=== PATIENT | female | born 1965 | race Caucasian/White ===

== ENCOUNTER → 2019-03-19 00:01 | Outpatient (RCR) | payer MEDICARE, SELFPAY | LOC: WOUND 02-19 08:16 | PROVIDERS: Family Provider Internal Medicine; Visit Provider Thoracic Surgery (Cardiothoracic Vascular Surgery) | DX: T81.30XA Disruption of wound, unspecified, initial encounter (principal); Y83.8 Other surgical procedures as the cause of abnormal reaction of the patient, or of later complication, without mention of misadventure at the time of the procedure; I96 Gangrene, not elsewhere classified | CPT/HCPCS: 11042 ×4 ==

== ENCOUNTER 2019-03-26 08:12 | Outpatient (RCR) | payer MEDICARE, OTHER, SELFPAY | END 2019-04-19 23:59 | disposition home or self-care (01) | LOC: WOUND 08:12 | PROVIDERS: Family Provider Internal Medicine; PCP Internal Medicine; Visit Provider Thoracic Surgery (Cardiothoracic Vascular Surgery) | DX: Z09 Encounter for follow-up examination after completed treatment for conditions other than malignant neoplasm (principal) | CPT/HCPCS: 99212 ==

== ENCOUNTER → 2019-05-01 09:45 | Outpatient (BNVA) | payer MEDICARE, OTHER, SELFPAY | PROVIDERS: Family Provider Internal Medicine; PCP Internal Medicine; Visit Provider Internal Medicine Rheumatology | DX: M32.9 Systemic lupus erythematosus, unspecified (principal); Z79.899 Other long term (current) drug therapy; G62.9 Polyneuropathy, unspecified; Z79.52 Long term (current) use of systemic steroids; E87.6 Hypokalemia | CPT/HCPCS: 36415; 99214 ==

== ENCOUNTER 2019-05-01 11:40 | Outpatient (CLI) | payer MEDICARE, OTHER, SELFPAY ==
[2019-05-01 12:39] LABS: Basophils # 0.1 10^3/uL (0.0-0.1); Basophils % 0.7 %; Eosinophils # 0.3 10^3/uL (0.0-0.8); Eosinophils % 3.1 %; Hematocrit 43.6 % (37.0-47.0); Lymphocytes # 2.3 10^3/uL (0.8-4.8); Lymphocytes % 27.8 %; Mean Corpuscular HGB Conc 29.8 g/dL (30.0-36.0); Mean Corpuscular Hemoglobin 25.9 pg (28.0-34.0); Mean Platelet Volume 10.6 fL (7.4-10.4); Monocytes # 0.8 10^3/uL (0.2-0.9); Monocytes % 10.1 %; Neutrophils # 4.8 10^3/uL (1.8-7.7); Neutrophils % 57.9 %; Nucleated Red Blood Cells % 0 %; Platelet Count 337 10^3/cmm (130-400); Red Blood Count 5.01 10^6/uL (4.1-5.3); Red Cell Distribution Width 16.9 % (12.1-15.1); White Blood Count 8.3 10^3/uL (4.0-10.0)
[2019-05-01 12:49] LABS: Complement C3 116 mg/dL (90-180)
[2019-05-01 12:58] LABS: Creatinine Urine, Random 19 mg/dL (28-217)
[2019-05-01 13:07] LABS: Alanine Aminotransferase 13 U/L (0-33); Albumin Level 3.7 g/dL (3.5-5.2); Alkaline Phosphatase 137 IU/L (35-105); Anion Gap 13.7 (5-19); Aspartate Amino Transferase 24 U/L (0-32); Blood Urea Nitrogen 5 mg/dL (6-20); Calcium 9.4 mg/dL (8.5-10.5); Carbon Dioxide 30 mmol/L (22-29); Chloride 99 mmol/L (98-107); Globulin 4.3 g/dL (1.3-4.6); Glomerular Filtration Rate 103.8 mL/min (90-130); Glucose 78 mg/dL (65-115); Sodium 140 mmol/L (136-145); Total Bilirubin 0.3 mg/dL (0.15-1.2)
[2019-05-01 13:45] LABS: Erythrocyte Sedimentation Rate 33 mm/hr (0-15)
[2019-05-01 13:58] LABS: Potassium 2.7 mmol/L (3.5-5.1)
== END 2019-05-01 11:41 | disposition home or self-care (01) ==
PROVIDERS: Family Provider Internal Medicine; PCP Internal Medicine; Visit Provider Internal Medicine Rheumatology
DX: M32.9 Systemic lupus erythematosus, unspecified (principal); Z51.81 Encounter for therapeutic drug level monitoring
CPT/HCPCS: 36415; 80053; 81001; 82575; 84156; 85025; 85651; 86140; 86160

== ENCOUNTER → 2019-05-06 11:25 | Outpatient (BNVA) | payer MEDICARE, OTHER, SELFPAY | PROVIDERS: Family Provider Internal Medicine; PCP Internal Medicine; Visit Provider Internal Medicine Rheumatology | DX: Z79.899 Other long term (current) drug therapy (principal); E87.6 Hypokalemia; M32.9 Systemic lupus erythematosus, unspecified | CPT/HCPCS: 36415; 84132 ==

== ENCOUNTER → 2019-07-31 12:57 | Outpatient (BNVA) | payer MEDICARE, OTHER, SELFPAY | PROVIDERS: Family Provider Internal Medicine; PCP Internal Medicine; Visit Provider Internal Medicine Rheumatology | DX: Z79.899 Other long term (current) drug therapy (principal); Z11.59 Encounter for screening for other viral diseases; Z11.1 Encounter for screening for respiratory tuberculosis; Z72.89 Other problems related to lifestyle | CPT/HCPCS: 36415; 80076; 82565; 85025; 85651; 86140; 86480; 86704; 86803; 87340 ==

== ENCOUNTER → 2019-08-06 14:13 | Outpatient (BNVA) | payer MEDICARE, OTHER, SELFPAY | PROVIDERS: Family Provider Internal Medicine; PCP Internal Medicine; Visit Provider Internal Medicine Rheumatology | DX: Z79.899 Other long term (current) drug therapy (principal); Z11.59 Encounter for screening for other viral diseases | CPT/HCPCS: 36415; 85025; 85651; 86803 ==

== ENCOUNTER → 2019-08-08 09:31 | Outpatient (BNVA) | payer MEDICARE, OTHER, SELFPAY | PROVIDERS: Family Provider Internal Medicine; PCP Internal Medicine; Visit Provider Internal Medicine Rheumatology | DX: M32.9 Systemic lupus erythematosus, unspecified (principal); Z79.899 Other long term (current) drug therapy; G62.9 Polyneuropathy, unspecified; M81.0 Age-related osteoporosis without current pathological fracture; M05.9 Rheumatoid arthritis with rheumatoid factor, unspecified; Z79.52 Long term (current) use of systemic steroids | CPT/HCPCS: 99214 ==

== ENCOUNTER 2019-10-29 14:55 | Outpatient (CLI) | payer MEDICARE, SELFPAY ==
--- NOTE | 2019-10-29 15:02 | MM_ITS ---
WS: [id number] BILATERAL DIGITAL SCREENING MAMMOGRAPHY WITH CAD CLINICAL INFORMATION: SCREENING HISTORY: Screening mammogram. No current complaints. COMPARISON: TECHNIQUE: Bilateral CC and MLO views. FINDINGS: Scattered fibroglandular densities bilaterally. No suspicious focal mass, asymmetry, calcifications, or architectural distortion. No evidence of malignancy. Vascular calcifications. Punctate calcificati ons. MM/[place] [id number] IMPRESSION: BI-RADS: 2-Benign FOLLOW UP: 1 Year Follow-up Recommend return to annual screening mammography.
== END 2019-10-29 14:56 | disposition home or self-care (01) ==
LOC: RADSHAW 15:01
PROVIDERS: Family Provider Internal Medicine; PCP Internal Medicine; Visit Provider Internal Medicine
DX: Z12.31 Encounter for screening mammogram for malignant neoplasm of breast (principal)
CPT/HCPCS: 77067

== ENCOUNTER → 2019-12-05 10:15 | Outpatient (BNVA) | payer MEDICARE, SELFPAY | PROVIDERS: Family Provider Internal Medicine; PCP Internal Medicine; Visit Provider Internal Medicine Rheumatology | DX: Z79.899 Other long term (current) drug therapy (principal); M32.9 Systemic lupus erythematosus, unspecified | CPT/HCPCS: 36415; 80076; 81001; 82565; 82570; 84156; 85025; 85651; 86140 ==

== ENCOUNTER → 2019-12-09 12:48 | Outpatient (BNVA) | payer MEDICARE, SELFPAY | PROVIDERS: Family Provider Internal Medicine; PCP Internal Medicine; Visit Provider Internal Medicine Rheumatology | DX: M32.9 Systemic lupus erythematosus, unspecified (principal); Z79.899 Other long term (current) drug therapy; R76.8 Other specified abnormal immunological findings in serum; G62.9 Polyneuropathy, unspecified; M81.0 Age-related osteoporosis without current pathological fracture; Z79.52 Long term (current) use of systemic steroids | CPT/HCPCS: 36415; 80076; 81001; 82306; 82565; 82570; 84156; 85025; 85651; 86140; 99214 ==

== ENCOUNTER → 2019-12-26 13:52 | Outpatient (BNVA) | payer MEDICARE, SELFPAY | PROVIDERS: PCP Internal Medicine; Visit Provider Surgery | DX: Z11.59 Encounter for screening for other viral diseases (principal) | CPT/HCPCS: 87635 ==

== ENCOUNTER 2019-12-30 06:40 | Day surgery (SDC) | payer MEDICARE, SELFPAY ==
[2019-12-20 14:23] VITALS: BMI 27.8
[2019-12-30 06:57] VITALS: BP 151/80; PULSE 73; RESP 20; TEMP 36.5; O2SAT 98
--- NOTE | 2019-12-30 07:02 | W.PM.OPSFHP ---
Same Day Surgery H&P Indication for Procedure/HPI DATE OF PROCEDURE: December 30, 2019 CHIEF COMPLAINT/INDICATIONFOR SURGICAL PROCEDURE: Dysphagia PREOP DIAGNOSIS: dysphagia PLANNED PROCEDRUE: Operation Date: 12/24/19 10:00 Proposed Procedures p EGD 01804 R13.10(Not Applicable) - Richard Tejada MD Operation Date: 12/30/19 07:45 Proposed Procedures p EGD Dilation W/ Possible Balloon 68610 R13.10(Not Applicable) - Richard Tejada MD Medications/Allergies* Home Medications Medication Instructions Recorded Confirmed Type citalopram 40 mg tablet 40 mg PO DAILY 04/30/19 12/27/19 History levothyroxine 125 mcg capsule 125 mcg PO DAILY 04/30/19 12/27/19 History multivitamin 1 tab PO DAILY 04/30/19 12/27/19 History potassium chloride 20 mEq 60 meq PO DAILY tab 04/30/19 12/27/19 History tablet,extended release vit with calcium-iron 1 tab PO DAILY tab 04/30/19 12/27/19 History fum-folic acid 27 mg-1 mg tablet Allergies/Adverse Reactions Allergy/AdvReac Type Severity Reaction Status Date / Time cephalexin Allergy Intermediate ITCHING,HEA Verified 12/20/19 14:22 DACHE codeine Allergy Intermediate ITCHING Verified 12/20/19 14:22 aspirin Allergy Unknown Unknown Verified 12/20/19 14:22 Pertinent History/Comorbid Conditions* Medical History (Updated 12/05/19 @ 17:13 by Richard Tejada MD) Cataract Osteoporosis Peripheral neuropathy Raynaud's syndrome without gangrene Systemic lupus erythematosus (SLE) in adult Vitamin D deficiency, unspecified Surgical History (Updated 11/29/19 @ 10:35 by Richard Tejada MD) Amputation of toe H/O colonoscopy 2016 H/O esophagogastroduodenoscopy 2014 H/O thyroidectomy History of cholecystectomy S/P AVR (aortic valve replacement) Family History (Updated 08/08/19 @ 09:56 by Pascale Chavarria LPN) Diabetes CAD (coronary artery disease) Hypertension Stroke Denies family history of Rheumatoid arthritis Chronic kidney disease (CKD) Systemic lupus erythematosus (SLE) in adult Cancer Social History Smoking and tobacco status: never smoked Alcohol intake: current Alcohol intake frequency: holidays/special occasions only Lives independently: No Household members: spouse Marital status: Current occupational status: disabled History of recent travel: No Pertinent Exam Findings alert, oriented x 3 and regular rate & rhythm Recommendations Surgery/Procedure today Coding Level of Care Code Acute 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
--- NOTE | 2019-12-30 07:17 | ANES.PREANE2 ---
Pre-Anesthetic Assessment Pre-Anesthetic Assessment: Height/Weight: Height 1.5 m Weight 62.596 kg Temp Pulse Resp BP Pulse Ox 97.7 F 73 20 H 151/80 98 12/30/19 06:57 12/30/19 06:57 12/30/19 06:57 12/30/19 06:57 12/30/19 06:57 Preop Diagnosis: dysphagia Proposed Procedure: Operation Date: 12/24/19 10:00 Proposed Procedures p EGD 91047 R13.10(Not Applicable) - Richard Tejada MD Operation Date: 12/30/19 07:45 Proposed Procedures p EGD Dilation W/ Possible Balloon 54139 R13.10(Not Applicable) - Richard Tejada MD Was Beta Jess taken within 24 hours: N/A Last intake: Intake Last Liquid Date 12/29/19 Last Liquid Time 22:00 Last Solid Date 12/29/19 Last Solid Time 18:00 Social: Social History: Alcohol and No tobacco Packs per day: holidays Exam: Pre-Anes Outpt Exam: alert, oriented x 3, clear to auscultation bilaterally and regular rate & rhythm Airway: Submandibular: WNL Cervical ROM: WNL MP: 2 Dentition: False History/ROS: No significant history except as noted and No significant complaints Pulmonary: Pulmonary: None reported CV/HEM: CV/HEM: Afib : : None reported Hepatic: Hepatic: None reported GI: GI: GERD Comments: controlled Metabolic: Metabolic: Thyroid Musc/skel: Musc/skel: OA/DJD Neuropsych: Neuropsych: None reported Anesthetic Plan: ASA status: 3 Anesthesia: MAC Risk of > 500 ml blood loss (7ml/kg in children): No PFSH Anesthesia PFSH: Medical History Cataract Osteoporosis Peripheral neuropathy Raynaud's syndrome without gangrene Systemic lupus erythematosus (SLE) in adult Vitamin D deficiency, unspecified Surgical History Amputation of toe H/O colonoscopy 2016 H/O esophagogastroduodenoscopy 2013 H/O thyroidectomy History of cholecystectomy S/P AVR (aortic valve replacement) Family History Other CAD (coronary artery disease) Diabetes Hypertension Stroke Denies family history of Rheumatoid arthritis Chronic kidney disease (CKD) Systemic lupus erythematosus (SLE) in adult Cancer Social History Smoking and tobacco status: never smoked Alcohol intake: current Alcohol intake frequency: holidays/special occasions only Lives independently: No Household members: spouse Marital status: Current occupational status: disabled History of recent travel: No Data Anesthesia Cardiac Studies: No Data to Display
[2019-12-30] MEDS: sodium chloride 0.9% 1,000 ML 30 ML IV (07:19)
[2019-12-30 08:28] VITALS: BP 130/69; PULSE 73; RESP 16; TEMP 36.1; O2SAT 99
[2019-12-30 08:48] VITALS: BP 130/69; PULSE 72; RESP 18; O2SAT 96
--- NOTE | 2019-12-30 09:05 | ANE.PACU2 ---
Inpatient post-anesthesia follow up: Airway intact: Yes Vital signs: Temperature 97 F Pulse Rate 72 Respiratory Rate 18 Blood Pressure 130/69 Pulse Oximetry 96 Oxygen Delivery Me thod Room Air Oxygen Flow Rate 1 Fraction of Inspir ed Oxygen Hydration adequate: Yes Nausea and vomiting: No Pain level: 1 Mental status: Baseline
== END 2019-12-30 09:05 | disposition home or self-care (01) ==
PROVIDERS: PCP Internal Medicine; Visit Provider Surgery
DX: R13.10 Dysphagia, unspecified (principal); K44.9 Diaphragmatic hernia without obstruction or gangrene; K22.2 Esophageal obstruction; M19.90 Unspecified osteoarthritis, unspecified site; E55.9 Vitamin D deficiency, unspecified; M32.9 Systemic lupus erythematosus, unspecified; Z82.49 Family history of ischemic heart disease and other diseases of the circulatory system; Z83.3 Family history of diabetes mellitus; I48.91 Unspecified atrial fibrillation
CPT/HCPCS: 12345; 43239; 43249; 88305; J2704; J7030

== ENCOUNTER 2020-01-23 13:50 | Outpatient (CLI) | payer MEDICARE, SELFPAY ==
--- NOTE | 2020-01-23 14:07 | XR_ITS ---
WS: [id number] XR foot RT min 3V* [id number] REASON FOR EXAM: TOE ULCER/EVAL FOR OSTEO FINDINGS: There are mild changes of osteoarthropathy in the DIP and MIP joints of the toes. This manifested by mild narrowing of the joint space with subchondral sclerosis. Joints of the midfoot and hindfoot are unremarkable. No bony destruction, erosion, or periosteal reaction noted. Extensive calcification of the anterior tibial artery XR/XR foot RT min 3V* [id number] IMPRESSION: Mild findings of osteoarthropathy. No findings of osteomyelitis.
== END 2020-01-23 13:51 | disposition home or self-care (01) ==
PROVIDERS: PCP Internal Medicine; Visit Provider Internal Medicine
DX: L97.519 Non-pressure chronic ulcer of other part of right foot with unspecified severity (principal)
CPT/HCPCS: 73630

== ENCOUNTER 2020-02-05 13:54 | Outpatient (CLI) | payer MEDICARE, SELFPAY | END 2020-02-05 13:55 | disposition home or self-care (01) | LOC: WOUND 13:55 | PROVIDERS: PCP Internal Medicine; Visit Provider Nurse Practitioner Family | DX: L97.512 Non-pressure chronic ulcer of other part of right foot with fat layer exposed (principal) | CPT/HCPCS: 11042; 87070; 87077; 87176; 87186; 87205; L3260 ==

== ENCOUNTER 2020-02-12 08:39 | Outpatient (CLI) | payer MEDICARE, SELFPAY | END 2020-02-12 08:40 | disposition home or self-care (01) | LOC: WOUND 08:40 | PROVIDERS: PCP Internal Medicine; Visit Provider Nurse Practitioner Family | DX: L97.512 Non-pressure chronic ulcer of other part of right foot with fat layer exposed (principal) | CPT/HCPCS: 11042 ==

== ENCOUNTER 2020-02-19 08:27 | Outpatient (CLI) | payer MEDICARE, SELFPAY | END 2020-02-19 08:28 | disposition home or self-care (01) | PROVIDERS: PCP Internal Medicine; Visit Provider Thoracic Surgery (Cardiothoracic Vascular Surgery) | DX: L97.512 Non-pressure chronic ulcer of other part of right foot with fat layer exposed (principal); I96 Gangrene, not elsewhere classified; Z79.899 Other long term (current) drug therapy; M32.9 Systemic lupus erythematosus, unspecified; R76.8 Other specified abnormal immunological findings in serum | CPT/HCPCS: 11043; 80053; 81001; 82248; 82570; 83036; 84156; 85025; 85651; 86140; 86160 ==

== ENCOUNTER 2020-02-19 09:57 | Outpatient (CLI) | payer MEDICARE, SELFPAY ==
[2020-02-19 11:05] LABS: Basophils # 0.1 10^3/uL (0.0-0.1); Basophils % 0.8 %; Eosinophils # 0.4 10^3/uL (0.0-0.8); Eosinophils % 2.7 %; Hematocrit 43.4 % (37.0-47.0); Hemoglobin 13.3 g/dL (11.5-15.3); Lymphocytes # 2.9 10^3/uL (0.8-4.8); Lymphocytes % 21.9 %; Mean Corpuscular HGB Conc 30.6 g/dL (30.0-36.0); Mean Corpuscular Hemoglobin 28.6 pg (28.0-34.0); Mean Corpuscular Volume 93.3 fL (81-99); Mean Platelet Volume 10.7 fL (7.4-10.4); Monocytes % 7.1 %; Neutrophils # 8.93 10^3/uL (1.8-7.7); Neutrophils % 67.2 %; Nucleated Red Blood Cells % 0 %; Platelet Count 326 10^3/cmm (130-400); Red Blood Count 4.65 10^6/uL (4.1-5.3); Red Cell Distribution Width 13.8 % (12.1-15.1); White Blood Count 13.3 10^3/uL (4.0-10.0)
[2020-02-19 11:16] LABS: Bilirubin Urine Neg (Negative); Blood Urine Neg (Negative); Glucose Urine UA Norm (Normal); Ketones Urine Negative (Negative); Leukocyte Esterase Urine Negative (Negative); Nitrate Urine Negative (Negative); Protein Urine Neg (Negative); Specific Gravity, Urine 1.005 (1.005-1.030); Urine Appearance Clear (CLEAR); Urine Color Yellow (Yellow); Urobilinogen Urine Norm (Negative); pH Urine 5 (5-7)
[2020-02-19 11:21] LABS: Add Urine Culture? No
[2020-02-19 11:32] LABS: Urine Creatinine 45 mg/dL (28-217); Urine Protein Random 4 mg/dL
[2020-02-19 11:47] LABS: Alanine Aminotransferase 21 U/L (0-33); Albumin Level 3.4 g/dL (3.5-5.2); Alkaline Phosphatase 108 IU/L (35-105); Anion Gap 13.6 (5-19); Aspartate Amino Transferase 24 U/L (0-32); Blood Urea Nitrogen 7 mg/dL (6-20); C Reactive Protein 13.1 mg/L (0.0-4.9); Calcium 8.7 mg/dL (8.5-10.5); Carbon Dioxide 28 mmol/L (22-29); Chloride 102 mmol/L (98-107); Globulin 3.8 g/dL (1.3-4.6); Glomerular Filtration Rate 86.6 mL/min (90-130); Glucose 76 mg/dL (65-115); Osmolality Calculated 287 mOsm/kg (285-295); Potassium 3.6 mmol/L (3.5-5.1); Sodium 140 mmol/L (136-145); Total Bilirubin 0.4 mg/dL (0.15-1.2); Total Protein 7.2 g/dL (6.6-8.7)
[2020-02-19 12:11] LABS: Complement C3 109 mg/dL (90-180)
[2020-02-19 12:59] LABS: Erythrocyte Sedimentation Rate 33 mm/hr (0-15)
[2020-02-19 14:44] LABS: Estmated Average Glucose 105; Hemoglobin A1C 5.3 % (4.0-6.0)
== END 2020-02-19 09:58 | disposition home or self-care (01) ==
LOC: LAB 10:05
PROVIDERS: Internal Medicine Rheumatology; PCP Internal Medicine; Visit Provider Thoracic Surgery (Cardiothoracic Vascular Surgery)
DX: Z79.899 Other long term (current) drug therapy (principal); M32.9 Systemic lupus erythematosus, unspecified; R76.8 Other specified abnormal immunological findings in serum
CPT/HCPCS: 80053; 81001; 82248; 82570; 83036; 84156; 85025; 85651; 86140; 86160

== ENCOUNTER 2020-02-26 08:06 | Outpatient (CLI) | payer MEDICARE, SELFPAY | END 2020-02-26 08:07 | disposition home or self-care (01) | LOC: WOUND 08:11 | PROVIDERS: PCP Internal Medicine; Visit Provider Nurse Practitioner Family | DX: L97.512 Non-pressure chronic ulcer of other part of right foot with fat layer exposed (principal) | CPT/HCPCS: 11042 ==

== ENCOUNTER 2020-02-28 13:52 | Outpatient (CLI) | payer MEDICARE, SELFPAY ==
--- NOTE | 2020-02-28 14:03 | CT_ITS ---
WS: [id number] CTA ABDOMINAL AORTA WITH RUNOFF TECHNIQUE: Contrast enhanced CTA of the abdominal aorta with bilateral lower extremity runoff. Multip lanar reformatted images were obtained. MIP reformats were also reviewed. CLINICAL INFORMATION: PERIPHERAL VASCULAR DISEASE WITH ISCHEMIC ULCERATION RT FOOT COMPARISON: None. DLP: 1192.[address] scans at [facility] use at least one of these dose optimization techniques: automat ed exposure control; mA and/or kV adjustment per patient size (includes targeted exams where dose is matched to clinical indication); or iterative reconstruction. FINDINGS: Normal caliber abdominal aorta. Normal celiac and SMA. Proximal renal arteries are patent. Normal caliber abdominal aorta. No abdominal aortic aneurysm. Lung bases are well aerated. Noncalcified nodule right lower lobe at the diaphragm measuring 7 mm. Th is appears stable since 2018. Diffuse fatty infiltration of the liver. Small esophageal hiatal hernia. Postoperative changes at the GE junction. Adrenal glands are normal. Normal renal parenchymal enhancement. No hydronephrosis. Pro minent lymph node in the upper abdomen unchanged since 2018 measuring 9 mm. Prominent lymph nodes in the sam hepatis also unchanged. No free fluid in the pelvis. Lumbar scoliosis. Small chronic appearing compression fractures in the l umbar spine at L1, L3, and L4. Anterior wedging at T11 vertebral plana. Grade 2 anterolisthesis L5 on S1 with chronic spondylolysis. Chronic appearing right greater than left healing/healed sacral insuf ficiency fractures. RIGHT: Right common iliac artery is patent. Right common femoral and deep femoral arteries are patent . Superficial femoral artery is patent to the adductor hiatus. Peripheral calcification throughout th e superficial femoral artery without flow-limiting stenosis. Popliteal artery is patent to the trifur cation. Densely calcified intermittent segmental three-vessel runoff to the ankle. Tiny posterior tib ial and peroneal arteries. Heavily calcified anterior tibial artery. LEFT: Left common iliac artery is patent. Left external iliac and common femoral arteries are patent. Densely calcified superficial femoral artery which remains patent without flow-limiting stenosis. [place] perficial femoral artery is patent to the adductor hiatus. Popliteal artery is patent. Densely calcif ied three-vessel runoff to the ankle with segmental stenosis. This is similar in appearance to the [facility] lower extremity. CT/CT angio abd aorta runof [id number] IMPRESSION: 1. Normal caliber abdominal aorta with mild calcification. No abdominal aortic aneurysm. 2. Celiac and SMA are patent. 3. RIGHT: Right common femoral and superficial femoral arteries are patent. De nse peripheral calcification superficial femoral artery without flow-limiting s tenosis. Popliteal artery is patent to the trifurcation. 4. LEFT: Left common femoral and superficial femoral arteries are patent. Dens gray peripheral calcification superficial femoral artery which remains patent. P opliteal artery is patent. 5. Mirror image densely calcified three-vessel segmental runoff to both ankles . Heavily calcified anterior tibial arteries bilaterally with tiny calcified pe roneal and posterior tibial arteries. 6. Additional nonvascular findings described above.
[2020-02-28] MEDS: iohexol 350 mg/mL 100 mL Btl IV (14:30)
== END 2020-02-28 13:53 | disposition home or self-care (01) ==
LOC: RADWPI 13:53
PROVIDERS: PCP Internal Medicine; Visit Provider Thoracic Surgery (Cardiothoracic Vascular Surgery)
DX: I73.9 Peripheral vascular disease, unspecified (principal); L97.519 Non-pressure chronic ulcer of other part of right foot with unspecified severity
CPT/HCPCS: 75635; Q9967

== ENCOUNTER → 2020-03-02 10:43 | Outpatient (BNVA) | payer MEDICARE, SELFPAY | PROVIDERS: PCP Internal Medicine; Visit Provider Internal Medicine Rheumatology | DX: M32.9 Systemic lupus erythematosus, unspecified (principal); R76.8 Other specified abnormal immunological findings in serum; Z79.899 Other long term (current) drug therapy; Z79.52 Long term (current) use of systemic steroids; G62.9 Polyneuropathy, unspecified; M81.0 Age-related osteoporosis without current pathological fracture; L97.519 Non-pressure chronic ulcer of other part of right foot with unspecified severity | CPT/HCPCS: 73630; 99214 ==

== ENCOUNTER 2020-03-02 11:35 | Outpatient (CLI) | payer MEDICARE, SELFPAY ==
--- NOTE | 2020-03-02 11:40 | XR_ITS ---
WS: [id number] Right foot, 3 views, 03/02/2020 Clinical Data: M32.9 - Systemic lupus erythematosus, unspecified Comparison: Right foot, 01/23/2020. Findings: No fractures or dislocations are seen. No bone destruction or erosion is noted. The minimal osteoarth ritic changes of the PIP and DIP joints of the right toes is seen.There is vascular calcification whi ch can be seen with diabetes. No evidence of osteomyelitis is noted. XR/XR foot RT min 3V* [id number] Impression: No change from previous right foot x-ray.
== END 2020-03-02 11:36 | disposition home or self-care (01) ==
LOC: RADWPI 11:38
PROVIDERS: PCP Internal Medicine; Visit Provider Internal Medicine Rheumatology
DX: M32.9 Systemic lupus erythematosus, unspecified (principal)
CPT/HCPCS: 73630

== ENCOUNTER 2020-03-04 08:21 | Outpatient (CLI) | payer MEDICARE, SELFPAY | END 2020-03-04 08:22 | disposition home or self-care (01) | LOC: WOUND 08:22 | PROVIDERS: PCP Internal Medicine; Visit Provider Thoracic Surgery (Cardiothoracic Vascular Surgery) | DX: I73.9 Peripheral vascular disease, unspecified (principal); L97.519 Non-pressure chronic ulcer of other part of right foot with unspecified severity | CPT/HCPCS: 11044; 87070; 87077; 87176; 87186; 87205 ==

== ENCOUNTER 2020-03-11 08:11 | Outpatient (CLI) | payer MEDICARE, SELFPAY | END 2020-03-11 08:12 | disposition home or self-care (01) | LOC: WOUND 08:12 | PROVIDERS: PCP Internal Medicine; Visit Provider Nurse Practitioner Family | DX: M32.9 Systemic lupus erythematosus, unspecified (principal); L97.512 Non-pressure chronic ulcer of other part of right foot with fat layer exposed | CPT/HCPCS: 11044 ==

== ENCOUNTER 2020-03-18 08:09 | Outpatient (CLI) | payer MEDICARE, SELFPAY | END 2020-03-18 08:10 | disposition home or self-care (01) | LOC: WOUND 08:10 | PROVIDERS: PCP Internal Medicine; Visit Provider Nurse Practitioner Family | DX: L97.512 Non-pressure chronic ulcer of other part of right foot with fat layer exposed (principal) | CPT/HCPCS: 11042 ==

== ENCOUNTER 2020-03-25 08:13 | Outpatient (CLI) | payer MEDICARE, SELFPAY | END 2020-03-25 08:14 | disposition home or self-care (01) | LOC: WOUND 08:14 | PROVIDERS: PCP Internal Medicine; Visit Provider Thoracic Surgery (Cardiothoracic Vascular Surgery) | DX: L97.512 Non-pressure chronic ulcer of other part of right foot with fat layer exposed (principal) | CPT/HCPCS: 11044 ==

== ENCOUNTER 2020-03-30 13:55 | Outpatient (CLI) | payer MEDICARE, SELFPAY ==
[2020-03-30 14:27] LABS: Basophils # 0.1 10^3/uL (0.0-0.1); Basophils % 0.6 %; Eosinophils # 0.1 10^3/uL (0.0-0.8); Eosinophils % 1.8 %; Hemoglobin 13.8 g/dL (11.5-15.3); Lymphocytes # 2.2 10^3/uL (0.8-4.8); Lymphocytes % 28.8 %; Mean Corpuscular HGB Conc 30.7 g/dL (30.0-36.0); Mean Corpuscular Hemoglobin 29.4 pg (28.0-34.0); Mean Corpuscular Volume 95.9 fL (81-99); Mean Platelet Volume 10.3 fL (7.4-10.4); Monocytes % 12.7 %; Neutrophils # 4.34 10^3/uL (1.8-7.7); Neutrophils % 55.8 %; Nucleated Red Blood Cells % 0 %; Platelet Count 241 10^3/cmm (130-400); Red Blood Count 4.69 10^6/uL (4.1-5.3); Red Cell Distribution Width 16.1 % (12.1-15.1); White Blood Count 7.8 10^3/uL (4.0-10.0)
[2020-03-30 15:22] LABS: Albumin Level 3.2 g/dL (3.5-5.2); Alkaline Phosphatase 71 IU/L (35-105); Blood Urea Nitrogen 6 mg/dL (6-20); Calcium 8.8 mg/dL (8.5-10.5); Carbon Dioxide 22 mmol/L (22-29); Chloride 103 mmol/L (98-107); Glomerular Filtration Rate 86.6 mL/min (90-130); Glucose 82 mg/dL (65-115); Osmolality Calculated 283 mOsm/kg (285-295); Sodium 138 mmol/L (136-145); Total Bilirubin 0.5 mg/dL (0.15-1.2); Total Protein 7.2 g/dL (6.6-8.7)
[2020-03-30 15:27] LABS: Alanine Aminotransferase 15 U/L (0-33); Anion Gap 17.4 (5-19); Aspartate Amino Transferase 34 U/L (0-32); Potassium 4.4 mmol/L (3.5-5.1)
== END 2020-03-30 13:56 | disposition home or self-care (01) ==
PROVIDERS: PCP Internal Medicine; Visit Provider Nurse Practitioner Family
DX: M86.9 Osteomyelitis, unspecified (principal)
CPT/HCPCS: 36415; 80053; 85025

== ENCOUNTER 2020-04-01 08:23 | Outpatient (CLI) | payer MEDICARE, SELFPAY | END 2020-04-01 08:24 | disposition home or self-care (01) | LOC: WOUND 08:23 | PROVIDERS: PCP Internal Medicine; Visit Provider Thoracic Surgery (Cardiothoracic Vascular Surgery) | DX: L97.512 Non-pressure chronic ulcer of other part of right foot with fat layer exposed (principal) | CPT/HCPCS: 11044 ==

== ENCOUNTER 2020-04-06 14:38 | Outpatient (CLI) | payer MEDICARE, SELFPAY ==
[2020-04-06 15:28] LABS: Basophils % 0.4 %; Eosinophils # 0.2 10^3/uL (0.0-0.8); Eosinophils % 2.6 %; Hematocrit 40.7 % (37.0-47.0); Hemoglobin 12.4 g/dL (11.5-15.3); Lymphocytes # 2.8 10^3/uL (0.8-4.8); Lymphocytes % 31.1 %; Mean Corpuscular HGB Conc 30.5 g/dL (30.0-36.0); Mean Corpuscular Hemoglobin 29.3 pg (28.0-34.0); Mean Corpuscular Volume 96.2 fL (81-99); Mean Platelet Volume 10.2 fL (7.4-10.4); Monocytes # 0.7 10^3/uL (0.2-0.9); Monocytes % 8.1 %; Neutrophils # 5.13 10^3/uL (1.8-7.7); Neutrophils % 57.6 %; Nucleated Red Blood Cells % 0 %; Platelet Count 222 10^3/cmm (130-400); Red Blood Count 4.23 10^6/uL (4.1-5.3); Red Cell Distribution Width 16.2 % (12.1-15.1); White Blood Count 8.9 10^3/uL (4.0-10.0)
[2020-04-06 15:57] LABS: Alanine Aminotransferase 13 U/L (0-33); Albumin Level 3.4 g/dL (3.5-5.2); Alkaline Phosphatase 65 IU/L (35-105); Anion Gap 11.7 (5-19); Aspartate Amino Transferase 18 U/L (0-32); Blood Urea Nitrogen 12 mg/dL (6-20); Calcium 8.9 mg/dL (8.5-10.5); Carbon Dioxide 29 mmol/L (22-29); Chloride 101 mmol/L (98-107); Globulin 3.5 g/dL (1.3-4.6); Glomerular Filtration Rate 64.8 mL/min (90-130); Glucose 85 mg/dL (65-115); Osmolality Calculated 285 mOsm/kg (285-295); Potassium 3.7 mmol/L (3.5-5.1); Sodium 138 mmol/L (136-145); Total Bilirubin 0.3 mg/dL (0.15-1.2); Total Protein 6.9 g/dL (6.6-8.7)
== END 2020-04-06 14:39 | disposition home or self-care (01) ==
PROVIDERS: PCP Internal Medicine; Visit Provider Nurse Practitioner Family
DX: M86.9 Osteomyelitis, unspecified (principal)
CPT/HCPCS: 36415; 80053; 85025

== ENCOUNTER 2020-04-08 08:08 | Outpatient (CLI) | payer MEDICARE, SELFPAY | END 2020-04-08 08:09 | disposition home or self-care (01) | LOC: WOUND 08:09 | PROVIDERS: PCP Internal Medicine; Visit Provider Thoracic Surgery (Cardiothoracic Vascular Surgery) | DX: L97.512 Non-pressure chronic ulcer of other part of right foot with fat layer exposed (principal) | CPT/HCPCS: 11043 ==

== ENCOUNTER 2020-04-15 08:17 | Outpatient (CLI) | payer MEDICARE, SELFPAY | END 2020-04-15 08:18 | disposition home or self-care (01) | LOC: WOUND 08:19 | PROVIDERS: PCP Internal Medicine; Visit Provider Thoracic Surgery (Cardiothoracic Vascular Surgery) | DX: I73.9 Peripheral vascular disease, unspecified (principal); L97.512 Non-pressure chronic ulcer of other part of right foot with fat layer exposed | CPT/HCPCS: 11042 ==

== ENCOUNTER 2020-04-22 08:11 | Outpatient (CLI) | payer MEDICARE, SELFPAY | END 2020-04-22 08:12 | disposition home or self-care (01) | LOC: WOUND 08:17 | PROVIDERS: PCP Internal Medicine; Visit Provider Thoracic Surgery (Cardiothoracic Vascular Surgery) | DX: L97.513 Non-pressure chronic ulcer of other part of right foot with necrosis of muscle (principal) | CPT/HCPCS: 11044 ==

== ENCOUNTER 2020-04-23 11:11 | Outpatient (CLI) | payer MEDICARE, SELFPAY ==
[2020-04-23 11:40] LABS: Basophils % 0.5 %; Eosinophils # 0.2 10^3/uL (0.0-0.8); Eosinophils % 1.9 %; Hemoglobin 11.1 g/dL (11.5-15.3); Lymphocytes # 2.6 10^3/uL (0.8-4.8); Lymphocytes % 30.6 %; Mean Corpuscular HGB Conc 30.8 g/dL (30.0-36.0); Mean Corpuscular Hemoglobin 29.6 pg (28.0-34.0); Mean Platelet Volume 10.2 fL (7.4-10.4); Monocytes # 0.9 10^3/uL (0.2-0.9); Monocytes % 10.9 %; Neutrophils % 55.9 %; Nucleated Red Blood Cells % 0 %; Platelet Count 282 10^3/cmm (130-400); Red Blood Count 3.75 10^6/uL (4.1-5.3); Red Cell Distribution Width 15.8 % (12.1-15.1); White Blood Count 8.4 10^3/uL (4.0-10.0)
[2020-04-23 12:08] LABS: Alanine Aminotransferase 23 U/L (0-33); Albumin Level 3.8 g/dL (3.5-5.2); Alkaline Phosphatase 76 IU/L (35-105); Aspartate Amino Transferase 28 U/L (0-32); Blood Urea Nitrogen 10 mg/dL (6-20); Calcium 8.8 mg/dL (8.5-10.5); Carbon Dioxide 26 mmol/L (22-29); Chloride 98 mmol/L (98-107); Globulin 3.5 g/dL (1.3-4.6); Glomerular Filtration Rate 74.2 mL/min (90-130); Glucose 81 mg/dL (65-115); Osmolality Calculated 278 mOsm/kg (285-295); Sodium 135 mmol/L (136-145); Total Bilirubin 0.5 mg/dL (0.15-1.2); Total Protein 7.3 g/dL (6.6-8.7)
== END 2020-04-23 11:12 | disposition home or self-care (01) ==
PROVIDERS: PCP Internal Medicine; Visit Provider Nurse Practitioner Family
DX: M32.9 Systemic lupus erythematosus, unspecified (principal); Z79.899 Other long term (current) drug therapy
CPT/HCPCS: 36415; 80053; 85025

== ENCOUNTER 2020-05-05 13:01 | Outpatient (CLI) | payer MEDICARE, SELFPAY | END 2020-05-05 13:02 | disposition home or self-care (01) | LOC: WOUND 13:03 | PROVIDERS: PCP Internal Medicine; Visit Provider Thoracic Surgery (Cardiothoracic Vascular Surgery) | DX: I96 Gangrene, not elsewhere classified (principal); L97.513 Non-pressure chronic ulcer of other part of right foot with necrosis of muscle | CPT/HCPCS: 11042 ==

== ENCOUNTER 2020-05-13 09:26 | Outpatient (CLI) | payer MEDICARE, SELFPAY | END 2020-05-13 09:27 | disposition home or self-care (01) | LOC: WOUND 09:37 | PROVIDERS: PCP Internal Medicine; Visit Provider Thoracic Surgery (Cardiothoracic Vascular Surgery) | DX: L97.513 Non-pressure chronic ulcer of other part of right foot with necrosis of muscle (principal) | CPT/HCPCS: 11042; 87070; 87176; 87205 ==

== ENCOUNTER 2020-05-20 09:40 | Outpatient (CLI) | payer MEDICARE, SELFPAY | END 2020-05-20 09:41 | disposition home or self-care (01) | LOC: WOUND 09:45 | PROVIDERS: PCP Internal Medicine; Visit Provider Thoracic Surgery (Cardiothoracic Vascular Surgery) | DX: L97.513 Non-pressure chronic ulcer of other part of right foot with necrosis of muscle (principal) | CPT/HCPCS: 11042 ==

== ENCOUNTER 2020-05-22 13:06 | Outpatient (CLI) | payer MEDICARE, SELFPAY | END 2020-05-22 13:07 | disposition home or self-care (01) | LOC: WOUND 13:07 | PROVIDERS: PCP Internal Medicine; Visit Provider Surgery | DX: L97.513 Non-pressure chronic ulcer of other part of right foot with necrosis of muscle (principal) | CPT/HCPCS: 11044 ==

== ENCOUNTER 2020-05-27 13:49 | Outpatient (CLI) | payer MEDICARE, SELFPAY | END 2020-05-27 13:50 | disposition home or self-care (01) | LOC: WOUND 13:55 | PROVIDERS: PCP Internal Medicine; Visit Provider Thoracic Surgery (Cardiothoracic Vascular Surgery) | DX: L97.512 Non-pressure chronic ulcer of other part of right foot with fat layer exposed (principal) | CPT/HCPCS: 11042 ==

== ENCOUNTER → 2020-05-28 13:46 | Outpatient (BNVA) | payer MEDICARE, SELFPAY | PROVIDERS: PCP Internal Medicine; Visit Provider Thoracic Surgery (Cardiothoracic Vascular Surgery) | DX: Z20.828 Contact with and (suspected) exposure to other viral communicable diseases (principal) | CPT/HCPCS: 87635 ==

== ENCOUNTER 2020-06-01 12:35 | Day surgery (SDC) | payer MEDICARE, SELFPAY ==
[2020-05-29 12:47] VITALS: BMI 25.4
[2020-06-01 13:17] VITALS: BP 139/103; PULSE 76; RESP 18; TEMP 36.8; O2SAT 99
--- NOTE | 2020-06-01 13:34 | ANES.PREANE2 ---
Pre-Anesthetic Assessment Pre-Anesthetic Assessment: Height/Weight: Height 1.47 m Weight 55.338 kg Temp Pulse Resp BP Pulse Ox 98.3 F 76 18 139/103 99 06/01/20 13:17 06/01/20 13:17 06/01/20 13:17 06/01/20 13:17 06/01/20 13:17 Preop Diagnosis: Right second toe amputation Proposed Procedure: Operation Date: 06/01/20 14:25 Proposed Procedures p Amputation Toe/s 2nd on right side(Right) - Rogelio Snyder MD Was Beta Jess taken within 24 hours: N/A Was Clonidine taken within 24 hours: N/A Last intake: Intake Last Liquid Date 05/31/20 Last Solid Date 05/31/20 Social: Social History: No alcohol and No tobacco Exam: Pre-Anes Outpt Exam: alert, oriented x 3, clear to auscultation bilaterally and regular rate & rhythm Airway: Submandibular: WNL Cervical ROM: WNL MP: 2 Dentition: False Pulmonary: Pulmonary: COPD CV/HEM: CV/HEM: CAD (CABG, AVR) and HTN GI: GI: GERD Metabolic: Metabolic: Thyroid Comments: Chronic steroids (Lupus) Anesthetic Plan: ASA status: 3 Anesthesia: MAC Risk of > 500 ml blood loss (7ml/kg in children): No PFSH Anesthesia PFSH: Medical History Cataract Osteoporosis Peripheral neuropathy Raynaud's syndrome without gangrene Right foot ulcer Systemic lupus erythematosus (SLE) in adult Vitamin D deficiency, unspecified Surgical History Amputation of toe H/O colonoscopy 2016 H/O esophagogastroduodenoscopy 2013 H/O esophagogastroduodenoscopy (12/30/19) with dilation H/O thyroidectomy History of cholecystectomy S/P AVR (aortic valve replacement) Family History Other CAD (coronary artery disease) Diabetes Hypertension Stroke Denies family history of Rheumatoid arthritis Chronic kidney disease (CKD) Systemic lupus erythematosus (SLE) in adult Cancer Social History Smoking and tobacco status: never smoked Alcohol intake: current Alcohol intake frequency: holidays/special occasions only Lives independently: No Household members: spouse Marital status: Current occupational status: disabled History of recent travel: No Data Anesthesia Cardiac Studies: No Data to Display
[2020-06-01 13:48] VITALS: BP 129/100; PULSE 81; RESP 12; TEMP 37.1; O2SAT 95
[2020-06-01 13:56] LABS: Basophils # 0.1 10^3/uL (0.0-0.1); Basophils % 0.6 %; Eosinophils # 0.2 10^3/uL (0.0-0.8); Hematocrit 42.2 % (37.0-47.0); Hemoglobin 13.1 g/dL (11.5-15.3); Lymphocytes # 2.9 10^3/uL (0.8-4.8); Lymphocytes % 25.5 %; Mean Corpuscular Hemoglobin 29.8 pg (28.0-34.0); Mean Corpuscular Volume 95.9 fL (81-99); Mean Platelet Volume 10.5 fL (7.4-10.4); Monocytes # 1.1 10^3/uL (0.2-0.9); Monocytes % 9.8 %; Neutrophils # 7.03 10^3/uL (1.8-7.7); Neutrophils % 61.8 %; Nucleated Red Blood Cells % 0 %; Platelet Count 335 10^3/cmm (130-400); Red Cell Distribution Width 15.1 % (12.1-15.1); White Blood Count 11.4 10^3/uL (4.0-10.0)
[2020-06-01] MEDS: vancomycin 1,000 MG in sodium chloride 0.9% 250 ML 250 MG IV (13:59)
[2020-06-01] MEDS: sodium chloride 0.9% 1,000 ML 30 ML IV (14:01)
[2020-06-01 14:18] LABS: Anion Gap 12.1 (5-19); Blood Urea Nitrogen 6 mg/dL (6-20); Calcium 8.5 mg/dL (8.5-10.5); Carbon Dioxide 31 mmol/L (22-29); Chloride 103 mmol/L (98-107); Glomerular Filtration Rate 86.6 mL/min (90-130); Glucose 71 mg/dL (65-115); Osmolality Calculated 290 mOsm/kg (285-295); Potassium 4.1 mmol/L (3.5-5.1); Sodium 142 mmol/L (136-145)
--- NOTE | 2020-06-01 14:35 | W.PM.OPSUD ---
Surgery/Procedure H&P Update DATE OF PROCEDURE: June 01, 2020 DATE H&P PERFORMED: 05/27/20 H&P UPDATE INFORMATION: I have reviewed H&P completed within last 30 days, I have examined patient prior to procedure and No changes to prior documentation PREOP DIAGNOSIS: Right second toe amputation PRIMARY INDICATION FOR PROCEDURE: Osteomyelitis right second toe interphalangeal joint with joint destruction PLANNED PROCEDURE: Operation Date: 06/01/20 14:25 Proposed Procedures p Amputation Toe/s 2nd on right side(Right) - Rogelio Snyder MD
[2020-06-01] MEDS: vancomycin 1,000 MG SDV 1000 MG IRRIGATION (15:11)
[2020-06-01] MEDS: neomycin-poly-bacitracin oint 28 gm 1 APPLIC TOPICAL (15:11)
--- NOTE | 2020-06-01 15:44 | P.OP_ITS ---
Operative Report Date of procedure: June 01, 2020 Pre-op Diagnosis: Osteomyelitis interphalangeal joint right second toe Post-op diagnosis: same Procedure Done: Right second toe amputation Specimens removed/disposition: Right second toe Anesthesia: MAC and Local Disposition: same day Brief History: Pleasant 54-year-old female with chronic wound of the right second toe involving the interphalangeal joint with bone destruction. Patient has lupus, osteoporosis, and peripheral neuropathy and her wound has failed to heal under wound care management. There is destruction of the proximal and distal phalanxes at the interphalangeal joint. After secondary review by my surgical colleague, Dr. Hayes, it is a consensus that toe would be best served with amputation due to concerns for subsequent progression or ascending cellulitis. This was carefully discussed with Ms. Bain. She concurred. Proper consents have been reviewed and signed. Procedure: Ms. Bain was taken racking machine operator room theater carefully position. She underwent IV conscious sedation anesthesia monitoring. Her entire right foot and lower leg was sterilely prepped and draped. A digital block was administered with 1% lidocaine with good effect. Circumferentially, the base of the right second toe, #15 scalpel utilized to incise the skin down through soft tissue attached tendon to the proximal phalanx. Dissection was then continued further proximally to the metatarsophalangeal joint where the right second toe was subsequently transected. The articular surface of the second metatarsal head was removed utilizing bone rongeur. No exposed tendons were placed on t raction and transected. Wound was irrigated with antibiotic solution. Cautery was utilized quite carefully no evidence for further bony destruction was identified or evidence for active infection elsewhere. Subsequently, the wound was reapproximated with interrupted buried 3-0 Vicryl suture deep and interrupted 3-0 nylon suture to reapproximate the skin. Antibiotic ointment and sterile fluff dressing was then applied. And secured lightly with an Satish bandage. This caused her to procedure well she was awakened from conscious sedation and taken to the PACU in stable condition. She will follow-up in wound care services in 2 days.
[2020-06-01 15:50] VITALS: BP 139/78; PULSE 82; RESP 21; O2SAT 95
--- NOTE | 2020-06-01 15:52 | P.PCN_ITS ---
PACU note PACU note: VSS, Good respiratory effort, report to DRUG INSPECTOR Post-Anesthesia Exam: awake
--- NOTE | 2020-06-01 15:52 | PM.PACU ---
PACU note PACU note: VSS, Good respiratory effort, report to CLINICAL SERVICES PROFESSIONAL Post-Anesthesia Exam: awake
[2020-06-01 15:55] VITALS: BP 149/64; PULSE 80; RESP 18; TEMP 37.2; O2SAT 95
[2020-06-01 15:58] VITALS: BP 141/101; PULSE 82; RESP 18; TEMP 37.2; O2SAT 97
--- NOTE | 2020-06-01 15:58 | ANE.PACU2 ---
Inpatient post-anesthesia follow up: Airway intact: Yes Vital signs: Temperature 99 F Pulse Rate 80 Respiratory Rate 18 Blood Pressure 149/64 Pulse Oximetry 95 Oxygen Delivery Me thod Room Air Oxygen Flow Rate Fraction of Inspir ed Oxygen Hydration adequate: Yes Nausea and vomiting: No Pain level: 1 Mental status: Baseline
[2020-06-01 16:24] VITALS: BP 137/83
== END 2020-06-01 17:08 | disposition home or self-care (01) ==
PROVIDERS: PCP Internal Medicine; Visit Provider Thoracic Surgery (Cardiothoracic Vascular Surgery)
PROC: (CPT 28820; principal; 2020-06-01 14:25)
DX: M86.8X7 Other osteomyelitis, ankle and foot (principal); J44.9 Chronic obstructive pulmonary disease, unspecified; I25.10 Atherosclerotic heart disease of native coronary artery without angina pectoris; Z95.1 Presence of aortocoronary bypass graft; I10 Essential (primary) hypertension; M81.0 Age-related osteoporosis without current pathological fracture
CPT/HCPCS: 28820; 36415; 80048; 85025; 88305; J3010; J3370; J7030; J7050

== ENCOUNTER 2020-06-04 13:00 | Outpatient (CLI) | payer MEDICARE, SELFPAY | END 2020-06-04 13:01 | disposition home or self-care (01) | LOC: WOUND 13:01 | PROVIDERS: PCP Internal Medicine; Visit Provider Thoracic Surgery (Cardiothoracic Vascular Surgery) | DX: Z89.421 Acquired absence of other right toe(s) (principal) | CPT/HCPCS: G0463 ==

== ENCOUNTER 2020-06-10 08:06 | Outpatient (CLI) | payer MEDICARE, SELFPAY | END 2020-06-10 08:07 | disposition home or self-care (01) | LOC: WOUND 08:07 | PROVIDERS: PCP Internal Medicine; Visit Provider Thoracic Surgery (Cardiothoracic Vascular Surgery) | DX: Z09 Encounter for follow-up examination after completed treatment for conditions other than malignant neoplasm (principal); Z89.421 Acquired absence of other right toe(s) | CPT/HCPCS: 99212 ==

== ENCOUNTER 2020-06-17 08:05 | Outpatient (CLI) | payer MEDICARE, SELFPAY | END 2020-06-17 08:06 | disposition home or self-care (01) | LOC: WOUND 08:06 | PROVIDERS: PCP Internal Medicine; Visit Provider Thoracic Surgery (Cardiothoracic Vascular Surgery) | DX: Z89.421 Acquired absence of other right toe(s) (principal) | CPT/HCPCS: 99212 ==

== ENCOUNTER 2020-06-24 08:08 | Outpatient (CLI) | payer MEDICARE, SELFPAY | END 2020-06-24 08:09 | disposition home or self-care (01) | LOC: WOUND 08:09 | PROVIDERS: PCP Internal Medicine; Visit Provider Thoracic Surgery (Cardiothoracic Vascular Surgery) | DX: Z89.421 Acquired absence of other right toe(s) (principal) | CPT/HCPCS: 99212 ==

== ENCOUNTER 2020-07-01 07:57 | Outpatient (CLI) | payer MEDICARE, SELFPAY | END 2020-07-01 07:58 | disposition home or self-care (01) | LOC: WOUND 07:58 | PROVIDERS: PCP Internal Medicine; Visit Provider Nurse Practitioner Family | DX: Z89.421 Acquired absence of other right toe(s) (principal) | CPT/HCPCS: 99212 ==

== ENCOUNTER 2020-07-08 07:59 | Outpatient (CLI) | payer MEDICARE, SELFPAY | END 2020-07-08 08:00 | disposition home or self-care (01) | LOC: WOUND 08:00 | PROVIDERS: PCP Internal Medicine; Visit Provider Thoracic Surgery (Cardiothoracic Vascular Surgery) | DX: M32.9 Systemic lupus erythematosus, unspecified (principal); Z79.899 Other long term (current) drug therapy; T81.31XA Disruption of external operation (surgical) wound, not elsewhere classified, initial encounter; Y83.8 Other surgical procedures as the cause of abnormal reaction of the patient, or of later complication, without mention of misadventure at the time of the procedure; Z89.421 Acquired absence of other right toe(s) | CPT/HCPCS: 36415; 80076; 81001; 82565; 82570; 84156; 85025; 86140; 97597 ==

== ENCOUNTER 2020-07-15 07:53 | Outpatient (CLI) | payer MEDICARE, SELFPAY | END 2020-07-15 07:54 | disposition home or self-care (01) | LOC: WOUND 07:55 | PROVIDERS: PCP Internal Medicine; Visit Provider Thoracic Surgery (Cardiothoracic Vascular Surgery) | DX: T81.31XA Disruption of external operation (surgical) wound, not elsewhere classified, initial encounter (principal); Y83.8 Other surgical procedures as the cause of abnormal reaction of the patient, or of later complication, without mention of misadventure at the time of the procedure; Z89.421 Acquired absence of other right toe(s) | CPT/HCPCS: 11042 ==

== ENCOUNTER 2020-07-22 11:11 | Outpatient (CLI) | payer MEDICARE, SELFPAY | END 2020-07-22 11:12 | disposition home or self-care (01) | LOC: WOUND 11:14 | PROVIDERS: PCP Internal Medicine; Visit Provider Thoracic Surgery (Cardiothoracic Vascular Surgery) | DX: T81.31XA Disruption of external operation (surgical) wound, not elsewhere classified, initial encounter (principal); Y83.8 Other surgical procedures as the cause of abnormal reaction of the patient, or of later complication, without mention of misadventure at the time of the procedure; Z89.421 Acquired absence of other right toe(s) | CPT/HCPCS: 11042 ==

== ENCOUNTER 2020-07-29 07:58 | Outpatient (CLI) | payer MEDICARE, SELFPAY | END 2020-07-29 07:59 | disposition home or self-care (01) | LOC: WOUND 08:03 | PROVIDERS: PCP Internal Medicine; Visit Provider Thoracic Surgery (Cardiothoracic Vascular Surgery) | DX: T81.31XA Disruption of external operation (surgical) wound, not elsewhere classified, initial encounter (principal); Y83.8 Other surgical procedures as the cause of abnormal reaction of the patient, or of later complication, without mention of misadventure at the time of the procedure | CPT/HCPCS: 11042 ==

== ENCOUNTER 2020-08-05 08:17 | Outpatient (CLI) | payer MEDICARE, SELFPAY | END 2020-08-05 08:18 | disposition home or self-care (01) | LOC: WOUND 08:19 | PROVIDERS: PCP Internal Medicine; Visit Provider Nurse Practitioner Family | DX: T81.31XA Disruption of external operation (surgical) wound, not elsewhere classified, initial encounter (principal); Y83.8 Other surgical procedures as the cause of abnormal reaction of the patient, or of later complication, without mention of misadventure at the time of the procedure; Z89.421 Acquired absence of other right toe(s) | CPT/HCPCS: 11042 ==

== ENCOUNTER 2020-08-08 17:53 | Emergency (ER) | payer MEDICARE, SELFPAY ==
[2020-08-08 18:17] VITALS: BP 88/61; PULSE 86; RESP 16; TEMP 37.7; O2SAT 98; BMI 27.1
--- NOTE | 2020-08-08 18:27 | ECG_ITS ---
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 Measurements Intervals [place] Rate: 83 P: 48 AK: 126 QRS: -62 QRSD: 160 T: 26 QT: 460 QTc: 543 Interpretive Statements SINUS RHYTHM RIGHT BUNDLE BRANCH BLOCK [120+ ms QRS DURATION, UPRIGHT V1, 40+ ms S IN I/aVL/V4/V5/V6] LEFT ANTERIOR FASCICULAR BLOCK [QRS AXIS <= -45, QR IN I, RS IN II] LEFT VENTRICULAR HYPERTROPHY AND ST-T CHANGE [VOLTAGE CRITERIA PLUS ST/T ABNORMALITY] Compared to ECG 12/04/2018 05:51:38 Right bundle-branch block now present Sinus tachycardia no longer present Myocardial infarct finding no longer present ST (T wave) deviation still present Electronically Signed On 08-09-2020 15:34:26 CDT by Elvin Manning M.D. [id number]
--- NOTE | 2020-08-08 18:34 | ED_ITS ---
HPI - General Adult General: Chief complaint: General Medical Stated complaint: OVERHEATED Time Seen by Provider: 08/08/20 18:22 Source: patient Mode of arrival: ambulatory Limitations: no limitations History of Present Illness: HPI narrative: 54-year-old female states she is outside all day in a yard sale. States she has had diarrhea as well and feels like she got overheated and dehydrated. She states she had a near syncopal event and just felt ill and felt like she was in a pass out. States that since being out of the heat she does feel little better. She has had some low blood pressures its improved here. Denies any worsening or improving factors. Associated symptoms: Deny chest pain, dyspnea, headache(s), nausea, rash or vomiting Review of Systems Const: Denies: fever(s), chills, body aches or change in appetite Eyes: Denies: blurry vision or eye discomfort ENMT: Denies: throat pain or dental pain Card: Denies: chest pain Resp: Denies: dyspnea GI: Denies: abdominal pain, nausea, vomiting or diarrhea : Denies: dysuria Musc: Denies: neck pain or back pain Skin/Breast: Denies: rash Neuro: Reports: weakness in extremities; Denies: headache(s) Psych: Denies: depression Efrain/Lymph: Denies: easy bruising All/Imm: Denies: urticaria PFSH ED PFSH: Medical History Cataract Osteoporosis Peripheral neuropathy Raynaud's syndrome without gangrene Right foot ulcer Systemic lupus erythematosus (SLE) in adult Vitamin D deficiency, unspecified Surgical History Amputation of toe H/O colonoscopy 2016 H/O esophagogastroduodenoscopy 2013 H/O esophagogastroduodenoscopy (12/30/19) with dilation H/O thyroidectomy History of cholecystectomy S/P AVR (aortic valve replacement) Family History Other CAD (coronary artery disease) Diabetes Hypertension Stroke Denies family history of Rheumatoid arthritis Chronic kidney disease (CKD) Systemic lupus erythematosus (SLE) in adult Cancer Social History Smoking and tobacco status: never smoked Alcohol intake: current Alcohol intake frequency: holidays/special occasions only Lives independently: No Household members: spouse Marital status: Current occupational status: disabled History of recent travel: No Physical Exam Const: COMMON NORMALS: no acute distress, patient oriented x3 and healthy appearing HENMT: COMMON NORMALS: normocephalic and atraumatic HEAD & SCALP: normocephalic and atraumatic Eye: COMMON NORMALS: Equal, round and reactive pupils present and EOMs intact bilaterally PUPIL: Yes Equal, round and reactive pupils present Neck/C-Spine: COMMON NORMALS: full ROM and supple Chest: COMMONS NORMALS: normal inspection of the chest and normal palpation of entire chest wall Resp: COMMON NORMALS: normal respiratory effort, No retractions, No use of accessory muscles and clear to auscultation bilaterally AUSCULTATION: clear to auscultation bilaterally Cardio: COMMON NORMALS: regular rate, regular rhythm and No murmurs present (Cardio) RATE: regular rate RHYTHM: regular rhythm GI: COMMON NORMALS: Normal to inspection, nondistended, normoactive bowel sounds present, Soft to palpation, non-tender and no masses PALPATION: Yes Soft to palpation Extremity: COMMON NORMALS: normal to inspection and full ROM Neuro: COMMON NORMALS: patient oriented x3, moves all extremities and no focal motor deficits Psych: COMMON NORMALS: mental status grossly normal, Normal thought process present and cooperative THOUGHT PROCESS: Normal thought process present Skin: COMMON NORMALS: no rashes or lesions noted and no wounds GENERAL SKIN EXAM: no rashes or lesions noted Course Vital Signs: Vital signs: Vital Signs Temperature 99.9 F H 08/08/20 18:17 Pulse Rate 84 08/08/20 20:54 Respiratory Rate 18 08/08/20 20:54 Blood Pressure 98/69 08/08/20 20:54 Pulse Oximetry 98 08/08/20 20:54 MDM - General Adult MDM Narrative: Medical decision making narrative: Patient presents here with heat exposure along with hypokalemia. She feels much improved here for IV fluids and her blood work is normal otherwise. We will write her potassium replacement and she is stable for discharge. She is to follow-up with her PCP and return if worsening. She understands agrees to plan. Lab Data: Labs: Lab Results 08/08/20 08/08/20 08/08/20 Range/Units 18:45 18:45 19:55 WBC 18.5 H (4.0-10.0) 10^3/ uL RBC 4.89 (4.1-5.3) 10^6/u L Hgb 14.1 (11.5-15.3) g/dL Hct 42.5 (37.0-47.0) % MCV 86.9 (81-99) fL MCH 28.8 (28.0-34.0) pg MCHC 33.2 (30.0-36.0) g/dL RDW 13.7 (12.1-15.1) % Plt Count 356 (130-400) 10^3/c mm MPV 10.6 H (7.4-10.4) fL Neut % (Auto) 74.0 % Lymph % (Auto) 15.0 % [place] % (Auto) 8.9 % Eos % (Auto) 0.8 % Baso % (Auto) 0.4 % Neut # (Auto) 13.67 H (1.8-7.7) 10^3/u L Lymph # (Auto) 2.8 (0.8-4.8) 10^3/u L [place] # (Auto) 1.7 H (0.2-0.9) 10^3/u L Eos # (Auto) 0.2 (0.0-0.8) 10^3/u L Baso # (Auto) 0.1 (0.0-0.1) 10^3/u L Nucleated RBC % (a uto) 0 % Nucleated RBCs # 0.0 /100WBC Sodium Cancelled 139 Potassium Cancelled 2.8 L* Chloride Cancelled 105 Carbon Dioxide Cancelled 21 L Anion Gap Cancelled 15.8 BUN Cancelled 4 L Creatinine Cancelled 0.6 GFR Calculation Cancelled 103.4 Glucose Cancelled 87 Calculated Osmolal ity Cancelled 284 L Calcium Cancelled 6.5 L Total Bilirubin Cancelled 0.3 AST Cancelled 19 ALT Cancelled 9 Alkaline Phosphata se Cancelled 68 Creatine Kinase Cancelled 70 Total Protein Cancelled 5.5 L Albumin Cancelled 2.8 L Globulin Cancelled 2.7 EKG Data^: EKG 1: Attestation: I personally reviewed and interpreted this EKG as follows: EKG interpretation date: 08/08/20 EKG interpretation time: 19:06 Interpretation: nsr hr [address] or t wave abnormalities qrs 160 qtc 500 Discharge Plan Discharge Patient Disposition: Home Clinical Impression: Hypokalemia Heat exposure Qualifiers: Encounter type: initial encounter Qualified Code(s): T67.9XXA - Effect of heat and light, unspecified, initial encounter Condition: Stable Prescriptions: New potassium chloride 20 mEq packet 40 meq PO TID Qty: 6 RF: 0 No Action alendronate 70 mg tablet 70 mg PO .once weekly Qty: 5 RF: 4 cholecalciferol (vitamin D3) 50 mcg (2,000 unit) capsule 50 mcg PO DAILY Qty: 30 RF: 4 gabapentin 300 mg capsule 300 mg PO TID Qty: 90 RF: 4 hydroxychloroquine [Plaquenil] 200 mg tablet 300 mg PO DAILY Qty: 45 RF: 4 prednisone 2.5 mg tablet 2.5 mg PO DAILY Qty: 30 RF: 4 potassium chloride 20 mEq tablet extended release 60 meq PO DAILY RF: 0 citalopram 40 mg tablet 40 mg PO DAILY RF: 0 vit-iron fum-folic ac 27-1 mg tablet 1 tab PO DAILY RF: 0 multivitamin Tablet 1 tab PO DAILY RF: 0 levothyroxine 125 mcg capsule 125 mcg PO DAILY RF: 0 aspirin 81 mg tablet,delayed release (DR/EC) 81 mg PO DAILY Qty: 90 RF: 3 levofloxacin 500 mg tablet 500 mg PO DAILY Qty: 10 RF: 0 hydrocodone-acetaminophen 5-325 mg tablet 1 tab PO Q6H Qty: 14 RF: 0 Discharge Orders: Discharge ED (Routine); Ordered 08/08/20 Ordered By: Adrian Brumfield Referrals: Emily Vitale MD [Primary Care Provider] - 1-3 days Discharge Diet: Advance as tolerated Discharge Activity: Resume usual activity Patient Instructions: Heat Exhaustion (ED), Hypokalemia (ED) Coding Level of Care Code ED Recreational [employer] Director for Chg Fwd Exam Comprehensive
[2020-08-08 18:57] LABS: Basophils # 0.1 10^3/uL (0.0-0.1); Basophils % 0.4 %; Eosinophils # 0.2 10^3/uL (0.0-0.8); Eosinophils % 0.8 %; Hematocrit 42.5 % (37.0-47.0); Hemoglobin 14.1 g/dL (11.5-15.3); Lymphocytes # 2.8 10^3/uL (0.8-4.8); Mean Corpuscular HGB Conc 33.2 g/dL (30.0-36.0); Mean Corpuscular Hemoglobin 28.8 pg (28.0-34.0); Mean Corpuscular Volume 86.9 fL (81-99); Mean Platelet Volume 10.6 fL (7.4-10.4); Monocytes # 1.7 10^3/uL (0.2-0.9); Monocytes % 8.9 %; Neutrophils # 13.67 10^3/uL (1.8-7.7); Nucleated Red Blood Cells % 0 %; Platelet Count 356 10^3/cmm (130-400); Red Blood Count 4.89 10^6/uL (4.1-5.3); Red Cell Distribution Width 13.7 % (12.1-15.1); White Blood Count 18.5 10^3/uL (4.0-10.0)
[2020-08-08 19:24] VITALS: BP 117/62; PULSE 81; RESP 18; O2SAT 99
[2020-08-08] MEDS: sodium chloride 0.9% 1,000 ML 999 ML IV (20:06)
[2020-08-08 20:54] VITALS: BP 98/69; PULSE 84; RESP 18; O2SAT 98
[2020-08-08 20:59] LABS: Alanine Aminotransferase 9 U/L (0-33); Albumin Level 2.8 g/dL (3.5-5.2); Alkaline Phosphatase 68 IU/L (35-105); Aspartate Amino Transferase 19 U/L (0-32); Blood Urea Nitrogen 4 mg/dL (6-20); Calcium 6.5 mg/dL (8.5-10.5); Carbon Dioxide 21 mmol/L (22-29); Chloride 105 mmol/L (98-107); Creatine Phosphokinase 70 U/L (26-192); Creatinine Clr Calc Pharmacy 97.4593; Globulin 2.7 g/dL (1.3-4.6); Glomerular Filtration Rate 103.4 mL/min (90-130); Glucose 87 mg/dL (65-115); Osmolality Calculated 284 mOsm/kg (285-295); Sodium 139 mmol/L (136-145); Total Bilirubin 0.3 mg/dL (0.15-1.2); Total Protein 5.5 g/dL (6.6-8.7)
[2020-08-08 21:00] LABS: Anion Gap 15.8 (5-19); Potassium 2.8 mmol/L (3.5-5.1)
[2020-08-08] MEDS: ondansetron 2 mg/ML SDV 2 mL 4 MG IVP (21:51)
[2020-08-08 21:57] VITALS: BP 101/70; PULSE 82; RESP 18; O2SAT 98
== END 2020-08-08 21:59 | disposition home or self-care (01) ==
PROVIDERS: Emergency Provider Emergency Medicine; PCP Internal Medicine
DX: T67.9XXA Effect of heat and light, unspecified, initial encounter (principal); E87.6 Hypokalemia; Z79.82 Long term (current) use of aspirin; M32.9 Systemic lupus erythematosus, unspecified
CPT/HCPCS: 80053; 82550; 85025; 93005; 96361; 96374; 99284; J2405; J7030

== ENCOUNTER 2020-08-12 08:11 | Outpatient (CLI) | payer MEDICARE, SELFPAY | END 2020-08-12 08:12 | disposition home or self-care (01) | LOC: WOUND 08:12 | PROVIDERS: PCP Internal Medicine; Visit Provider Thoracic Surgery (Cardiothoracic Vascular Surgery) | DX: T81.31XA Disruption of external operation (surgical) wound, not elsewhere classified, initial encounter (principal); Y83.8 Other surgical procedures as the cause of abnormal reaction of the patient, or of later complication, without mention of misadventure at the time of the procedure; Z89.421 Acquired absence of other right toe(s) | CPT/HCPCS: 11042 ==

== ENCOUNTER 2020-08-19 08:22 | Outpatient (CLI) | payer MEDICARE, SELFPAY | END 2020-08-19 08:23 | disposition home or self-care (01) | LOC: WOUND 08:24 | PROVIDERS: PCP Internal Medicine; Visit Provider Thoracic Surgery (Cardiothoracic Vascular Surgery) | DX: T81.31XA Disruption of external operation (surgical) wound, not elsewhere classified, initial encounter (principal); Y83.8 Other surgical procedures as the cause of abnormal reaction of the patient, or of later complication, without mention of misadventure at the time of the procedure; Z89.421 Acquired absence of other right toe(s) | CPT/HCPCS: 11043 ==

== ENCOUNTER 2020-08-26 08:37 | Outpatient (CLI) | payer MEDICARE, SELFPAY | END 2020-08-26 08:38 | disposition home or self-care (01) | LOC: WOUND 08:40 | PROVIDERS: PCP Internal Medicine; Visit Provider Thoracic Surgery (Cardiothoracic Vascular Surgery) | DX: T81.31XA Disruption of external operation (surgical) wound, not elsewhere classified, initial encounter (principal); Y83.8 Other surgical procedures as the cause of abnormal reaction of the patient, or of later complication, without mention of misadventure at the time of the procedure | CPT/HCPCS: 11042 ==

== ENCOUNTER 2020-08-30 14:49 | Emergency (ER) | payer MEDICARE, SELFPAY ==
[2020-08-30 15:41] VITALS: BP 96/58; PULSE 91; RESP 18; TEMP 36.7; O2SAT 100; BMI 19.8
--- NOTE | 2020-08-30 16:08 | XRR_ITS ---
PROCEDURE INFORMATION: Exam: XR Right Foot Exam date and time: 08/30/2020 4:08 PM Age: 54 years old Clinical indication: Pain; Foot; Right; Prior surgery; Additional info: 2nd toe amputation. Osteo? TECHNIQUE: Imaging protocol: XR Right foot. Views: 1 or 2 views. COMPARISON: CR XR foot RT min 3V* [id number] 03/02/2020 11:47:10 AM FINDINGS: Bones/joints: Bones are diffusely osteopenic. Patient has had an interval amputation of the 2nd toe, including a portion of the head of the 1st metatarsal. No lytic or sclerotic bony lesions. No acute fracture. No dislocation. Soft tissues: Questionable soft tissue emphysema at the amputation site and lateral to the base of the 1st proximal phalanx, possible necrotizing fasciitis cannot be ruled out. Moderate soft tissue swelling at the amputation site. No radiopaque foreign body. Vasculature: Atherosclerotic changes in the visualized arteries. XR/XR foot RT 2V [id number] IMPRESSION: 1. Patient has had an interval amputation of the 2nd toe, including a portion of the head of the 1st metatarsal. Questionable soft tissue emphysema at the amputation site and lateral to the base of the 1st proximal phalanx, possible necrotizing fasciitis cannot be ruled out. Recommend clinical correlation. 2. No evidence for osteomyelitis. MRI without and with contrast may be obtained if there is continuing clinical concern for osteomyelitis. If the patient has any contradiction for MRI, 3 phase bone scan in conjunction with white blood cell scan may be obtained. 3. Moderate soft tissue swelling at the amputation site. 4. Incidental/nonacute findings are listed in the report.
--- NOTE | 2020-08-30 16:10 | CTR_ITS ---
PROCEDURE INFORMATION: Exam: CT Abdomen And Pelvis With Contrast Exam date and time: 08/30/2020 4:10 PM Age: 54 years old Clinical indication: Abdominal pain; Generalized; Prior surgery; Surgery date: 6+ months; Surgery type: Gb; Patient HX: Hurts all over; Additional info: Abdominal pain, n/v/d. TECHNIQUE: Imaging protocol: Computed tomography of the abdomen and pelvis with contrast. Sagittal and coronal reformatted images were created and reviewed. Radiation optimization: All CT scans at this facility use at least one of these dose optimization techniques: automated exposure control; mA and/or kV adjustment per patient size (includes targeted exams where dose is matched to clinical indication); or iterative reconstruction. Contrast material: OMNI 300; Contrast volume: 75 ml; Contrast route: INTRAVENOUS (IV); COMPARISON: CT abdomen pelvis w con* [id number] 10/01/2017 7:06 PM RADIATION DOSE METRICS: Total DLP (mGy-cm): 1053.94 FINDINGS: Limitations: Motion artifact on multiple images that can limit evaluation. Lungs: Visualized lungs are clear. Pleural spaces: No pleural effusion. Heart: Visualized portions of the heart are mildly enlarged. Calcification of the aortic valve and mitral valve annulus. Mediastinal space: Interval development of wall thickening of the visualized distal esophagus, measuring up to 6.9 mm (series 2, image 6). There is also interval development of inflammation and fluid around distal esophagus. Liver: The liver is unremarkable. Gallbladder and bile ducts: Stable findings consistent with a previous cholecystectomy. No biliary ductal dilatation. Pancreas: The pancreas is unremarkable. No pancreatic ductal dilatation. Spleen: Multiple areas of amorphous calcification in the spleen with an irregular contour of the spleen are stable, findings may represent sequela of remote trauma. Adrenal glands: The right and left adrenal glands are unremarkable. Kidneys and ureters: Nonobstructing stone in the left kidney measuring 3.8 mm. Findings are stable. The right kidney is unremarkable. The right and left ureters are unremarkable. Stomach and bowel: No acute abnormality in the stomach. No acute abnormality in the small bowel. Interval development of mild wall thickening with surrounding mild inflammation of the descending colon and sigmoid colon. No acute abnormality in the small bowel. Fatty infiltration of the wall of the cecum and ascending colon. Findings suggest sequela of chronic inflammation. Appendix: No evidence for appendicitis. Intraperitoneal space: No free intraperitoneal air. No ascites. No loculated fluid collections to suggest an abscess. Vasculature: Extensive atherosclerotic calcification in the visualized coronary arteries. No evidence for aortic aneurysm or aortic dissection. Hepatic veins, portal veins, splenic vein, and SMV are patent. Moderate to severe atherosclerotic changes in the visualized arteries. Lymph nodes: No lymphadenopathy. Urinary bladder: Diffuse, moderate wall thickening of the bladder. Reproductive: The uterus, right ovary, and left ovary are unremarkable. Bones/joints: Poststernotomy changes in the chest. Poststernotomy changes in the chest. Bones are diffusely osteopenic. Multiple old rib fractures bilaterally. Old fracture of the right pubic bone. Old fracture of the right sacral ala. Mild scoliosis in the visualized spine. Old, severe compression deformity of T11 with moderate spinal canal stenosis and old, severe compression deformity of L1 with mild spinal canal stenosis are stable. Old, moderate compression deformities of L3 and L4 are new compared with the previous CT scan. Stable bilateral pars defects at L5 with grade 1 anterolisthesis of L5 on S1. Multilevel foraminal stenosis of varying severity in the visualized spine. Soft tissues: Mild body wall edema. CT/CT abdomen pelvis w con* [id number] IMPRESSION: 1. Interval development of findings suspicious for esophagitis in the visualized distal esophagus. Upper endoscopy may be obtained for further evaluation as clinically indicated. 2. Interval development of findings suspicious for mild colitis in the descending colon and sigmoid colon. 3. Stable nonobstructing left renal stone. 4. Diffuse, moderate wall thickening of the bladder. In the correct clinical setting, this may suggest cystitis. Recommend correlation with laboratory findings. Alternatively, this may be secondary to chronic outlet obstruction. 5. Mild body wall edema. 6. Old, moderate compression deformities of L3 and L4 are new compared with the previous CT scan. 7. Incidental/nonacute findings are listed in the report. Radiation Dose CTDIVOL = (mGy): DLP = 1053.94 (mGy-cm)
--- NOTE | 2020-08-30 16:10 | XRR_ITS ---
PROCEDURE INFORMATION: Exam: XR Chest Exam date and time: 08/30/2020 4:10 PM Age: 54 years old Clinical indication: Dyspnea; Additional info: Reduced breath sounds TECHNIQUE: Imaging protocol: XR of the chest. Views: 1 view. COMPARISON: CR Chest 1 [place] [id number] 12/09/2018 4:48 PM FINDINGS: Lungs: Lungs are clear bilaterally. Pleural spaces: No pleural effusion. No pneumothorax. Heart/Mediastinum: Stable mild enlargement of the cardiac silhouette. Mediastinal contours are unremarkable. Calcification of the mitral valve annulus. Vasculature: Vascular calcifications in the aorta. Bones/joints: Stable poststernotomy changes in the chest. Bones are diffusely osteopenic. Multilevel degenerative changes of varying severity in the visualized spine. XR/XR chest 1V portable [id number] IMPRESSION: 1. No acute cardiopulmonary process. 2. Incidental/nonacute findings are listed in the report.
--- NOTE | 2020-08-30 16:10 | CTR_ITS ---
PROCEDURE INFORMATION: Exam: CT Head Without Contrast Exam date and time: 08/30/2020 4:10 PM Age: 54 years old Clinical indication: Altered mental status/memory loss; Confusion or disorientation; Patient HX: Hurts all over, AMS; Additional info: Headache/ altered mental status. , Wait for labs for belly CT same time. TECHNIQUE: Imaging protocol: Computed tomography of the head without contrast. Sagittal and coronal reformatted images were created and reviewed. Radiation optimization: All CT scans at this facility use at least one of these dose optimization techniques: automated exposure control; mA and/or kV adjustment per patient size (includes targeted exams where dose is matched to clinical indication); or iterative reconstruction. COMPARISON: CT head wo con* [id number] 12/09/2018 10:30 PM RADIATION DOSE METRICS: Total DLP (mGy-cm): 826.57 FINDINGS: Brain: No acute intracranial hemorrhage. No acute infarct. No intra-axial or extra-axial masses. [place]-white matter differentiation is preserved. No cerebral edema. No extra-axial fluid collections. No midline shift. No evidence for Chiari 1 malformation. Stable mild cerebral volume loss. Right basal ganglia calcifications. Cerebral ventricles: No hydrocephalus. Paranasal sinuses: Visualized paranasal sinuses are clear. Mastoid air cells: Small amount of fluid in the right mastoid air cells. Left mastoid air cells are clear. Orbital cavity: Globes and lenses, extraocular muscles, and optic nerves are intact bilaterally. No acute intraorbital abnormality. Vasculature: Atherosclerotic changes in the visualized arteries. Bones/joints: No acute fracture. Soft tissues: No acute abnormality of the extracranial soft tissues. Patient has bilateral ear piercings. Submandibular/Parotid glands: Numerous calcifications in the right and left parotid glands are stable. CT/CT head wo con* [id number] IMPRESSION: 1. No acute abnormality of the brain. 2. Small amount of fluid in the right mastoid air cells. 3. Incidental/nonacute findings are listed in the report. Radiation Dose CTDIVOL = (mGy): DLP = 826.57 (mGy-cm)
--- NOTE | 2020-08-30 16:12 | ECG_ITS ---
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 Measurements Intervals [place] Rate: 80 P: 0 MD: 119 QRS: -60 QRSD: 153 T: 26 QT: 422 QTc: 490 Interpretive Statements SINUS RHYTHM WITH SHORT MD INTERVAL WITH OCCASIONAL VENTRICULAR PREMATURE COMPLEXES RIGHT BUNDLE BRANCH BLOCK [120+ ms QRS DURATION, UPRIGHT V1, 40+ ms S IN I/aVL/V4/V5/V6] LEFT ANTERIOR FASCICULAR BLOCK [QRS AXIS <= -45, QR IN I, RS IN II] LEFT VENTRICULAR HYPERTROPHY AND ST-T CHANGE [VOLTAGE CRITERIA PLUS ST/T ABNORMALITY] Compared to ECG 08/08/2020 19:06:24 Ventricular premature complex(es) now present Short MD interval now present ST (T wave) deviation still present Electronically Signed On 08-30-2020 21:05:18 CDT by Ileana Zamora M.D. [email or web address]
--- NOTE | 2020-08-30 16:18 | ED_ITS ---
HPI - General Adult General: Chief complaint: General Medical Stated complaint: unknown complaint Time Seen by Provider: 08/30/20 15:52 History of Present Illness: HPI narrative: The patient is a 54-year-old female who has not cooperative with history taking. She refused to stay at a complaint in triage. I have asked her several times her complaint or if she is hurting anywhere and she says I do not know I does want to feel better. Her male friend says that she woke up complaining of a headache and vomited a couple times at home. She does admit a mild headache after asked several times. Also nausea. The friend says she had a similar presentation a couple weeks ago to the ER. The note says she was out in the heat and was given IV fluids and potassium replacement and discharged home. She cannot state how long her symptoms have started for though her friend says she feels better every day but this morning in particular her symptoms got worse. Location: head Severity: moderate Associated symptoms: Reports headache(s), nausea and vomiting; Deny chest pain, cough, dyspnea or short of breath Review of Systems General: Reports: Other (uncooperative with ros. ) Const: Denies: fever(s) ENMT: Denies: throat pain Card: Denies: chest pain Resp: Denies: dyspnea GI: Reports: nausea and vomiting; Denies: abdominal pain Musc: Denies: neck pain Neuro: Reports: headache(s) PFSH ED PFSH: Medical History Cataract Osteoporosis Peripheral neuropathy Raynaud's syndrome without gangrene Right foot ulcer Systemic lupus erythematosus (SLE) in adult Vitamin D deficiency, unspecified Surgical History Amputation of toe H/O colonoscopy 2016 H/O esophagogastroduodenoscopy 2013 H/O esophagogastroduodenoscopy (12/30/19) with dilation H/O thyroidectomy History of cholecystectomy S/P AVR (aortic valve replacement) Family History Other CAD (coronary artery disease) Diabetes Hypertension Stroke Denies family history of Rheumatoid arthritis Chronic kidney disease (CKD) Systemic lupus erythematosus (SLE) in adult Cancer Social History Smoking and tobacco status: never smoked Alcohol intake: current Alcohol intake frequency: holidays/special occasions only Lives independently: No Household members: spouse Marital status: Current occupational status: disabled History of recent travel: No Physical Exam Const: COMMON NORMALS: no acute distress, average body habitus, patient oriented x3, alert and well nourished EXAM LIMITATIONS: behavioral limitations (not cooperative with history taking) GENERAL APPEARANCE: cooperative, well developed, anxious and disheveled ORIENTATION/CONSCIOUSNESS: Yes awake, Yes oriented to person, Yes oriented to place and Yes oriented to time OTHER: not cooperative with history. just says she wants to feel better. HENMT: COMMON NORMALS: normocephalic, external ears normal and Normal external nose present HEAD & SCALP: normal to inspection and normocephalic NOSE: Normal external nose present EXTERNAL EAR: Yes external ears normal MOUTH: Normal oral and palatal mucosa present THROAT: posterior oropharynx normal Eye: COMMON NORMALS: Equal, round and reactive pupils present and EOMs intact bilaterally GENERAL EYE: appearance normal, both eyes and all related structures PUPIL: Yes Equal, round and reactive pupils present Neck/C-Spine: COMMON NORMALS: full ROM, no lymphadenopathy, no meningeal signs and no JVD GENERAL: Yes normal visual inspection Lymph: LYMPHATIC: no lymphadenopathy noted Chest: COMMONS NORMALS: normal inspection of the chest and normal palpation of entire chest wall Resp: COMMON NORMALS: normal respiratory effort, No retractions, No use of accessory muscles, clear to auscultation bilaterally and percussion normal EFFORT & INSPECTION: Yes able to speak in complete sentences AUSCULTATION: clear to auscultation bilaterally PERCUSSION: percussion normal Cardio: COMMON NORMALS: no JVD, regular rate, regular rhythm, S1 normal heart sound present, S2 normal heart sound present and Peripheral pulses 2+ throughout RATE: regular rate RHYTHM: regular rhythm HEART SOUNDS: S1 normal heart sound present and S2 normal heart sound present PERIPHERAL PULSES: Peripheral pulses 2+ throughout GI: COMMON NORMALS: Normal to inspection, nondistended, normoactive bowel sounds present, Soft to palpation, non-tender and no masses INSPECTION: Yes normal to inspection PALPATION: Yes Soft to palpation : COMMON NORMALS: Yes no CVA tenderness BLADDER/KIDNEY EXAM: Yes no CVA tenderness Back/Pelvis: COMMON NORMALS: no CVA tenderness, thoracic and lumbar spine normal to inspection, no thoracic nor lumbar tenderness and thoraco-lumbar ROM normal Extremity: COMMON NORMALS: normal to inspection, full ROM, capillary refill normal, no joint enlargement and no pedal edema GENERAL: Yes normal exam except as noted Neuro: COMMON NORMALS: patient oriented x3, CN's II-XII intact bilaterally, moves all extremities, no focal motor deficits, no sensory deficits noted and gait normal SENSORIUM/ORIENTATION: Yes alert, Yes oriented to person, Yes oriented to place and Yes oriented to time MENINGEAL SIGNS: Yes no meningeal signs Psych: COMMON NORMALS: mental status grossly normal, Normal thought process present, cooperative, normal affect and speech normal ATTITUDE: Yes calm SPEECH: Yes normal speech THOUGHT PROCESS: Normal thought process present Skin: COMMON NORMALS: no rashes or lesions noted NARRATIVE SKIN EXAM: Right foot second toe amputated with packing. She is following wound care for this. GENERAL SKIN EXAM: no rashes or lesions noted Course Vital Signs: Vital signs: Vital Signs Temperature 98.1 F 08/30/20 15:41 Pulse Rate 73 08/30/20 22:51 Respiratory Rate 23 H 08/30/20 22:51 Blood Pressure 103/62 08/30/20 22:51 Pulse Oximetry 93 08/30/20 22:51 MDM - General Adult MDM Narrative: Medical decision making narrative: The patient came in not really responding to much history taking but it was apparent that she was vomiting at home and having a headache. Testing revealed mild hypokalemia and she was repleted orally. She also has a right foot second toe amputation with a small wound there that is packed. X-ray initially revealed soft tissue air. CT shows there is no soft tissue air but there is swelling and possibly cellulitis. There is a possible cellulitis surrounding the area. She is seeing wound care and has an appointment with Dr. Snyder Monday which is appropriate. Lab Data: Labs: Lab Results 08/30/20 08/30/20 08/30/20 Range/Units 16:45 16:45 16:45 WBC 8.7 (4.0-10.0) 10^3/ uL RBC 4.71 (4.1-5.3) 10^6/u L Hgb 13.3 (11.5-15.3) g/dL Hct 40.4 (37.0-47.0) % MCV 85.8 (81-99) fL MCH 28.2 (28.0-34.0) pg MCHC 32.9 (30.0-36.0) g/dL RDW 14.3 (12.1-15.1) % Plt Count 407 H (130-400) 10^3/c mm MPV 10.2 (7.4-10.4) fL Neut % (Auto) 70.2 % Lymph % (Auto) 19.9 % [place] % (Auto) 8.1 % Eos % (Auto) 0.3 % Baso % (Auto) 0.9 % Neut # (Auto) 6.09 (1.8-7.7) 10^3/u L Lymph # (Auto) 1.7 (0.8-4.8) 10^3/u L [place] # (Auto) 0.7 (0.2-0.9) 10^3/u L Eos # (Auto) 0.0 (0.0-0.8) 10^3/u L Baso # (Auto) 0.1 (0.0-0.1) 10^3/u L Nucleated RBC % (a uto) 0 % Nucleated RBCs # 0.0 /100WBC Sodium 139 (136-145) mmol/L Potassium 3.2 L (3.5-5.1) mmol/L Chloride 99 (98-107) mmol/L Carbon Dioxide 26 (22-29) mmol/L Anion Gap 17.2 (5-19) BUN 4 L (6-20) mg/dL Creatinine 0.7 (0.5-0.9) mg/dL GFR Calculation 86.6 L (90-130) mL/min Glucose 102 (65-115) mg/dL Calculated Osmolal ity 285 (285-295) mOsm/k g Lactic Acid (0.5-2.2) mmol/L Lactate 3.3 H (0.5-2.2) mmol/L Calcium 7.7 L (8.5-10.5) mg/dL Total Bilirubin 0.2 (0.15-1.2) mg/dL AST 19 (0-32) U/L ALT 10 (0-33) U/L Alkaline Phosphata se 84 (35-105) IU/L Troponin T Baselin e (0-10) ng/L Troponin T 120 Min [place] (0-10) ng/L Delta Troponin T (0-10) ABS# Total Protein 5.7 L (6.6-8.7) g/dL Albumin 3.0 L (3.5-5.2) g/dL Globulin 2.7 (1.3-4.6) g/dL Urine Color (Yellow) Urine Appearance (CLEAR) Urine pH (5-7) Ur Specific Gravit y (1.005-1.030) Urine Protein (Negative) Urine Glucose (UA) (Normal) Urine Ketones (Negative) Urine Blood (Negative) Urine Nitrate (Negative) Urine Bilirubin (Negative) Urine Urobilinogen (Negative) mg/dL Ur Leukocyte Melina ase (Negative) Urine RBC (0-2) /hpf Urine WBC (0-5) /hpf Ur Squamous Epith Cells (0-5) /hpf Amorphous Sediment Urine Bacteria (NONE) /hpf Urine Opiates Scre en (Negative) ng/mL Ur Barbiturates Sc reen (Negative) ng/mL Ur Phencyclidine S crn (Negative) ng/mL Ur Amphetamines Sc reen (Negative) ng/mL U Benzodiazepines Scrn (Negative) ng/mL Urine Cocaine Scre en (Negative) ng/mL U Marijuana (THC) Screen (Negative) ng/mL Ethyl Alcohol < 10 (0-10) mg/dL 08/30/20 08/30/20 08/30/20 Range/Units 16:45 19:00 19:21 WBC (4.0-10.0) 10^3/ uL RBC (4.1-5.3) 10^6/u L Hgb (11.5-15.3) g/dL Hct (37.0-47.0) % MCV (81-99) fL MCH (28.0-34.0) pg MCHC (30.0-36.0) g/dL RDW (12.1-15.1) % Plt Count (130-400) 10^3/c mm MPV (7.4-10.4) fL Neut % (Auto) % Lymph % (Auto) % [place] % (Auto) % Eos % (Auto) % Baso % (Auto) % Neut # (Auto) (1.8-7.7) 10^3/u L Lymph # (Auto) (0.8-4.8) 10^3/u L [place] # (Auto) (0.2-0.9) 10^3/u L Eos # (Auto) (0.0-0.8) 10^3/u L Baso # (Auto) (0.0-0.1) 10^3/u L Nucleated RBC % (a uto) % Nucleated RBCs # /100WBC Sodium (136-145) mmol/L Potassium (3.5-5.1) mmol/L Chloride (98-107) mmol/L Carbon Dioxide (22-29) mmol/L Anion Gap (5-19) BUN (6-20) mg/dL Creatinine (0.5-0.9) mg/dL GFR Calculation (90-130) mL/min Glucose (65-115) mg/dL Calculated Osmolal ity (285-295) mOsm/k g Lactic Acid (0.5-2.2) mmol/L Lactate (0.5-2.2) mmol/L Calcium (8.5-10.5) mg/dL Total Bilirubin (0.15-1.2) mg/dL AST (0-32) U/L ALT (0-33) U/L Alkaline Phosphata se (35-105) IU/L Troponin T Baselin e 18 H (0-10) ng/L Troponin T 120 Min [place] 19.09 H (0-10) ng/L Delta Troponin T 1.09 (0-10) ABS# Total Protein (6.6-8.7) g/dL Albumin (3.5-5.2) g/dL Globulin (1.3-4.6) g/dL Urine Color (Yellow) Urine Appearance (CLEAR) Urine pH (5-7) Ur Specific Gravit y (1.005-1.030) Urine Protein (Negative) Urine Glucose (UA) (Normal) Urine Ketones (Negative) Urine Blood (Negative) Urine Nitrate (Negative) Urine Bilirubin (Negative) Urine Urobilinogen (Negative) mg/dL Ur Leukocyte Melina ase (Negative) Urine RBC (0-2) /hpf Urine WBC (0-5) /hpf Ur Squamous Epith Cells (0-5) /hpf Amorphous Sediment Urine Bacteria (NONE) /hpf Urine Opiates Scre en Negative (Negative) ng/mL Ur Barbiturates Sc reen Negative (Negative) ng/mL Ur Phencyclidine S crn Negative (Negative) ng/mL Ur Amphetamines Sc reen Negative (Negative) ng/mL U Benzodiazepines Scrn Negative (Negative) ng/mL Urine Cocaine Scre en Negative (Negative) ng/mL U Marijuana (THC) Screen Negative (Negative) ng/mL Ethyl Alcohol (0-10) mg/dL 08/30/20 08/30/20 Range/Units 19:21 20:11 WBC (4.0-10.0) 10^3/ uL RBC (4.1-5.3) 10^6/u L Hgb (11.5-15.3) g/dL Hct (37.0-47.0) % MCV (81-99) fL MCH (28.0-34.0) pg MCHC (30.0-36.0) g/dL RDW (12.1-15.1) % Plt Count (130-400) 10^3/c mm MPV (7.4-10.4) fL Neut % (Auto) % Lymph % (Auto) % [place] % (Auto) % Eos % (Auto) % Baso % (Auto) % Neut # (Auto) (1.8-7.7) 10^3/u L Lymph # (Auto) (0.8-4.8) 10^3/u L [place] # (Auto) (0.2-0.9) 10^3/u L Eos # (Auto) (0.0-0.8) 10^3/u L Baso # (Auto) (0.0-0.1) 10^3/u L Nucleated RBC % (a uto) % Nucleated RBCs # /100WBC Sodium (136-145) mmol/L Potassium (3.5-5.1) mmol/L Chloride (98-107) mmol/L Carbon Dioxide (22-29) mmol/L Anion Gap (5-19) BUN (6-20) mg/dL Creatinine (0.5-0.9) mg/dL GFR Calculation (90-130) mL/min Glucose (65-115) mg/dL Calculated Osmolal ity (285-295) mOsm/k g Lactic Acid 1.6 (0.5-2.2) mmol/L Lactate (0.5-2.2) mmol/L Calcium (8.5-10.5) mg/dL Total Bilirubin (0.15-1.2) mg/dL AST (0-32) U/L ALT (0-33) U/L Alkaline Phosphata se (35-105) IU/L Troponin T Baselin e (0-10) ng/L Troponin T 120 Min [place] (0-10) ng/L Delta Troponin T (0-10) ABS# Total Protein (6.6-8.7) g/dL Albumin (3.5-5.2) g/dL Globulin (1.3-4.6) g/dL Urine Color Yellow (Yellow) Urine Appearance Clear (CLEAR) Urine pH 6 (5-7) Ur Specific Gravit y 1.010 (1.005-1.030) Urine Protein Neg (Negative) Urine Glucose (UA) Norm (Normal) Urine Ketones Negative (Negative) Urine Blood 2+ H (Negative) Urine Nitrate Negative (Negative) Urine Bilirubin Neg (Negative) Urine Urobilinogen Norm (Negative) mg/dL Ur Leukocyte Melina ase Negative (Negative) Urine RBC 0-4 H (0-2) /hpf Urine WBC 0-4 H (0-5) /hpf Ur Squamous Epith Cells 0-4 H (0-5) /hpf Amorphous Sediment Not Reportable Urine Bacteria Trace (NONE) /hpf Urine Opiates Scre en (Negative) ng/mL Ur Barbiturates Sc reen (Negative) ng/mL Ur Phencyclidine S crn (Negative) ng/mL Ur Amphetamines Sc reen (Negative) ng/mL U Benzodiazepines Scrn (Negative) ng/mL Urine Cocaine Scre en (Negative) ng/mL U Marijuana (THC) Screen (Negative) ng/mL Ethyl Alcohol (0-10) mg/dL Discharge Plan Discharge Patient Disposition: Home Clinical Impression: Colitis, Esophagitis, Acute hypokalemia, Cellulitis Condition: Stable Prescriptions: New ciprofloxacin HCl 500 mg tablet 500 mg PO Q12H Qty: 20 RF: 0 Flagyl 500 mg tablet 500 mg PO Q8H 10 Days Qty: 30 RF: 0 No Action cholecalciferol (vitamin D3) 50 mcg (2,000 unit) capsule 50 mcg PO DAILY Qty: 30 RF: 4 gabapentin 300 mg capsule 300 mg PO TID Qty: 90 RF: 4 hydroxychloroquine [Plaquenil] 200 mg tablet 300 mg PO DAILY Qty: 45 RF: 4 prednisone 2.5 mg tablet 2.5 mg PO DAILY Qty: 30 RF: 4 potassium chloride 20 mEq tablet extended release 60 meq PO DAILY RF: 0 citalopram 40 mg tablet 40 mg PO DAILY RF: 0 multivitamin Tablet 1 tab PO DAILY RF: 0 aspirin 81 mg tablet,delayed release (DR/EC) 81 mg PO DAILY Qty: 90 RF: 3 hydrocodone-acetaminophen 5-325 mg tablet 1 tab PO Q6H Qty: 14 RF: 0 pentoxifylline 400 mg tablet extended release 400 mg PO DAILY RF: 0 pantoprazole 40 mg tablet,delayed release (DR/EC) 40 mg PO BID RF: 0 levothyroxine 112 mcg tablet 112 mcg PO DAILY RF: 0 1 tab PO DAILY RF: 0 alendronate 70 mg tablet 70 mg PO Q7D RF: 0 potassium chloride 20 mEq packet 40 meq PO TID Qty: 6 RF: 0 Discharge Orders: Discharge ED (Routine); Ordered 08/30/20 Ordered By: Trevon Faye Referrals: Emily Vitale MD [Primary Care Provider] - Discharge Diet: Advance as tolerated Discharge Activity: Resume usual activity Patient Instructions: Cellulitis (ED), Hypokalemia (ED), Infectious Colitis (ED), Opioid Safety Activity Restrictions/Additional Instructions: 1. You are likely not feeling well because you are vomiting and having diarrhea. CT shows esophagitis and colitis. We are treating you with ciprofloxacin and Flagyl for 10 days. Please take them as directed and follow- up with your primary care physician in a few days to monitor improvement of your symptoms. Return to the ER at anytime with worsening symptoms. 2. You likely have a small cellulitis to your foot the antibiotic should also help. Please follow-up with Dr. Snyder Monday as you already have scheduled and have him reevaluate the wound at that time. Continue to go to wound care visits as well. Return to the ER if the redness worsens or spreads or there is discharge from the wound. 3. You have low potassium and we have supplemented you with potassium. Hopefully this becomes normal with that single pill however have your primary care doctor recheck it in a few days to monitor its improvement and make sure it has normalized. 4. Also you have compression fractures of your lower back which are probably causing you chronic pain. They did not happen recently but probably in the past year. Please follow-up with your doctor to discuss this as well. Return to the ER at anytime with worsening or worrisome symptoms. Otherwise follow-up with your primary care doctor in a couple days and Dr. Lillian partida. Coding Level of Care Code ED Assistant Golf Coach for Chg Fwd Exam Comprehensive
[2020-08-30] MEDS: sodium chloride 0.9% 1,000 ML 999 ML IV (16:41)
[2020-08-30] MEDS: ondansetron 2 mg/ML SDV 2 mL 4 MG IVP (16:41)
[2020-08-30] MEDS: ketorolac 30 mg/mL INJ 15 MG IVP (16:41)
[2020-08-30 16:50] LABS: Basophils # 0.1 10^3/uL (0.0-0.1); Basophils % 0.9 %; Eosinophils % 0.3 %; Hematocrit 40.4 % (37.0-47.0); Hemoglobin 13.3 g/dL (11.5-15.3); Lymphocytes # 1.7 10^3/uL (0.8-4.8); Lymphocytes % 19.9 %; Mean Corpuscular HGB Conc 32.9 g/dL (30.0-36.0); Mean Corpuscular Hemoglobin 28.2 pg (28.0-34.0); Mean Corpuscular Volume 85.8 fL (81-99); Mean Platelet Volume 10.2 fL (7.4-10.4); Monocytes # 0.7 10^3/uL (0.2-0.9); Monocytes % 8.1 %; Neutrophils # 6.09 10^3/uL (1.8-7.7); Neutrophils % 70.2 %; Nucleated Red Blood Cells % 0 %; Platelet Count 407 10^3/cmm (130-400); Red Blood Count 4.71 10^6/uL (4.1-5.3); Red Cell Distribution Width 14.3 % (12.1-15.1); White Blood Count 8.7 10^3/uL (4.0-10.0)
[2020-08-30 16:52] VITALS: BP 115/45; RESP 16; O2SAT 94
[2020-08-30 17:10] LABS: Alanine Aminotransferase 10 U/L (0-33); Alkaline Phosphatase 84 IU/L (35-105); Anion Gap 17.2 (5-19); Aspartate Amino Transferase 19 U/L (0-32); Blood Urea Nitrogen 4 mg/dL (6-20); Calcium 7.7 mg/dL (8.5-10.5); Carbon Dioxide 26 mmol/L (22-29); Chloride 99 mmol/L (98-107); Globulin 2.7 g/dL (1.3-4.6); Glomerular Filtration Rate 86.6 mL/min (90-130); Glucose 102 mg/dL (65-115); Osmolality Calculated 285 mOsm/kg (285-295); Potassium 3.2 mmol/L (3.5-5.1); Sodium 139 mmol/L (136-145); Total Bilirubin 0.2 mg/dL (0.15-1.2); Total Protein 5.7 g/dL (6.6-8.7)
[2020-08-30 17:11] LABS: Lactate (Lactic Acid level) 3.3 mmol/L (0.5-2.2); Troponin(5th) Baseline 18 ng/L (0-10)
[2020-08-30 17:15] LABS: Alcohol Level < 10 mg/dL (0-10)
[2020-08-30] MEDS: iohexol 300 mg/mL 100 mL Btl IV (17:43)
[2020-08-30] MEDS: potassium chloride ER 20 mEq Tablet 40 MEQ PO (18:00)
--- NOTE | 2020-08-30 18:00 | PC.PHAR ---
I TRIED TO DO THE MEDICATION LIST WITH THIS PT, BUT SHE WOULD NOT COOPERATE IN ANY WAY. SHE WOULD NOT ANSWER MY QUESTIONS AND SHE GOT ANGRY WHEN I KEPT ASKING HER QUESTIONS. PT'S NURSE HERE AT THE ER STATES SHE WAS HERE LAST WEEK AND ACTED ABOUT THE SAME. I AM GOING TO DO HER MEDICATION LIST USING THE MEDICATION HISTORY AND PHARMACY LIST
--- NOTE | 2020-08-30 18:12 | ECG_ITS ---
[facility] Test Date: 2020-08-30 Pat Name: Sari Bain Department: Room: Gender: Female Telesales Representative: : 1965 Requested By: Trevon Faye Order Number: [id number] Reed MD: Ileana Zamora M.D. Measurements Intervals [place] Rate: 78 P: 45 WI: 108 QRS: -63 QRSD: 154 T: 75 QT: 430 QTc: 491 Interpretive Statements SINUS RHYTHM WITH SHORT WI INTERVAL RIGHT BUNDLE BRANCH BLOCK [120+ ms QRS DURATION, UPRIGHT V1, 40+ ms S IN I/aVL/V4/V5/V6] LEFT ANTERIOR FASCICULAR BLOCK [QRS AXIS <= -45, QR IN I, RS IN II] WARNING: DATA QUALITY MAY AFFECT INTERPRETATION Compared to ECG 08/30/2020 16:29:34 Ventricular premature complex(es) no longer present Left ventricular hypertrophy no longer present ST (T wave) deviation no longer present Electronically Signed On 08-31-2020 23:04:03 CDT by Ileana Zamora M.D. [id number]
--- NOTE | 2020-08-30 18:41 | CTR_ITS ---
PROCEDURE INFORMATION: Exam: CT Right Lower Extremity Without Contrast, Foot Exam date and time: 08/30/2020 6:41 PM Age: 54 years old Clinical indication: There has been prior right 2nd toe amputation. Assess for soft tissue gas. Wound packing removed. Free air? Necrotizing fasciitis? TECHNIQUE: Imaging protocol: CT of the Right lower extremity without contrast was performed. Exam focused on the foot. Radiation optimization: All CT scans at this facility use at least one of these dose optimization techniques: automated exposure control; mA and/or kV adjustment per patient size (includes targeted exams where dose is matched to clinical indication); or iterative reconstruction. COMPARISON: CR (LOW EXM, ) 08/30/2020 4:08 PM RADIATION DOSE METRICS: Total DLP (mGy-cm): 142.81 FINDINGS: There has been prior transmetatarsal amputation of the right 2nd toe. There is an ulcer involving the forefoot at the site of prior amputation. The osteotomy margin appears sharp without definite acute osseous destruction to confirm osteomyelitis. There is surrounding subcutaneous edema suspicious for cellulitis. No tracking soft tissue gas is seen to suggest necrotizing fasciitis. No gross drainable abscess is identified on the provided noncontrast images. No acute fracture is seen. CT/CT foot RT wo con* [id number] IMPRESSION: 1. There is an ulcer involving the forefoot at the site of prior amputation. The osteotomy margin appears sharp without definite acute osseous destruction to confirm osteomyelitis. There is surrounding subcutaneous edema suspicious for cellulitis. No tracking soft tissue gas is seen to suggest necrotizing fasciitis. No gross drainable abscess is identified on the provided noncontrast images. 2. Consider MRI of the foot with and without contrast to further assess if there is continued clinical concern for osteomyelitis. Radiation Dose CTDIVOL = (mGy): DLP = 142.81 (mGy-cm)
[2020-08-30] MEDS: lidocaine 2% viscous 15 ML, aluminum-mag hydrox-simethicon 30 ML, sucralfate oral liq 1 GM PO (18:53)
[2020-08-30] MEDS: ciprofloxacin 500 mg Tablet PO (18:54)
[2020-08-30] MEDS: metroNIDAZOLE 500 MG Tablet PO (18:54)
[2020-08-30 19:29] LABS: Troponin 5 2HR 19.09 ng/L (0-10); Troponin 5 2HR Delta 1.09 ABS# (0-10)
[2020-08-30 19:37] LABS: Amphetamines Screen Urine Negative (Negative); Barbiturates Screen Urine Negative (Negative); Benzodiazepines Screen Urine Negative (Negative); Cocaine Screen Urine Negative (Negative); Opiate Screen Urine Negative (Negative); PCP Screen Urine Negative (Negative); THC Screen Urine Negative (Negative)
[2020-08-30 19:44] LABS: Add Urine Microscopic? YES; Bilirubin Urine Neg (Negative); Blood Urine 2+ (Negative); Glucose Urine UA Norm (Normal); Ketones Urine Negative (Negative); Leukocyte Esterase Urine Negative (Negative); Nitrate Urine Negative (Negative); Protein Urine Neg (Negative); Urine Appearance Clear (CLEAR); Urine Color Yellow (Yellow); Urobilinogen Urine Norm (Negative); pH Urine 6 (5-7)
[2020-08-30 19:47] LABS: Bacteria Urine TRACE /hpf; RBC Urine 0-4 /hpf (0-2); Squamous Epithelial Cell Urine 0-4 /hpf (0-5); WBC Urine 0-4 /hpf (0-5)
[2020-08-30 20:16] VITALS: BP 100/47; PULSE 77; RESP 16; O2SAT 96
[2020-08-30 20:35] LABS: Lactic Sepsis W/Reflex 1.6 mmol/L (0.5-2.2)
[2020-08-30 21:24] VITALS: BP 105/79; PULSE 79; RESP 18; O2SAT 92
[2020-08-30 22:22] VITALS: BP 103/62; PULSE 72; RESP 18; O2SAT 97
[2020-08-30 22:51] VITALS: BP 103/62; PULSE 73; RESP 23; O2SAT 93
== END 2020-08-30 22:51 | disposition home or self-care (01) ==
PROVIDERS: Emergency Provider Family Medicine; PCP Internal Medicine
DX: K52.9 Noninfective gastroenteritis and colitis, unspecified (principal); K20.90 Esophagitis, unspecified without bleeding; E87.6 Hypokalemia; L03.115 Cellulitis of right lower limb; Z79.82 Long term (current) use of aspirin; Z89.421 Acquired absence of other right toe(s)
CPT/HCPCS: 70450; 71045; 73620; 73700; 74177; 80053; 80306; 80307; 81001; 83605; 84484; 85025; 93005; 96361; 96374; 96375; 99284; J1885; J2405; J7030; Q9967

== ENCOUNTER → 2020-10-06 08:52 | Outpatient (BNVA) | payer MEDICARE, SELFPAY | PROVIDERS: PCP Internal Medicine; Visit Provider Internal Medicine Rheumatology | DX: M32.9 Systemic lupus erythematosus, unspecified (principal); G62.9 Polyneuropathy, unspecified; Z79.899 Other long term (current) drug therapy; M81.0 Age-related osteoporosis without current pathological fracture; Z71.89 Other specified counseling; E03.9 Hypothyroidism, unspecified; K21.9 Gastro-esophageal reflux disease without esophagitis; Z86.39 Personal history of other endocrine, nutritional and metabolic disease; Z51.81 Encounter for therapeutic drug level monitoring | CPT/HCPCS: 81001; 82570; 84156; 87086; 99214 ==

== ENCOUNTER 2020-11-10 13:04 | Outpatient (CLI) | payer MEDICARE, SELFPAY | END 2020-11-10 13:05 | disposition home or self-care (01) | LOC: WOUND 13:05 | PROVIDERS: PCP Internal Medicine; Visit Provider Nurse Practitioner Family | DX: I96 Gangrene, not elsewhere classified (principal); E11.621 Type 2 diabetes mellitus with foot ulcer; L97.512 Non-pressure chronic ulcer of other part of right foot with fat layer exposed; Z89.421 Acquired absence of other right toe(s) | CPT/HCPCS: 11042; G0463 ==

== ENCOUNTER 2020-11-17 13:55 | Outpatient (CLI) | payer MEDICARE, SELFPAY | END 2020-11-17 13:56 | disposition home or self-care (01) | LOC: WOUND 13:58 | PROVIDERS: PCP Internal Medicine; Visit Provider Thoracic Surgery (Cardiothoracic Vascular Surgery) | DX: I73.9 Peripheral vascular disease, unspecified (principal); L97.512 Non-pressure chronic ulcer of other part of right foot with fat layer exposed; Z89.421 Acquired absence of other right toe(s) | CPT/HCPCS: 11042 ==

== ENCOUNTER 2020-11-24 14:47 | Outpatient (CLI) | payer MEDICARE, SELFPAY | END 2020-11-24 14:48 | disposition home or self-care (01) | PROVIDERS: PCP Internal Medicine; Visit Provider Emergency Medicine | DX: I73.9 Peripheral vascular disease, unspecified (principal); L97.512 Non-pressure chronic ulcer of other part of right foot with fat layer exposed; Z89.421 Acquired absence of other right toe(s) | CPT/HCPCS: 11042 ==

== ENCOUNTER 2020-12-01 10:28 | Outpatient (CLI) | payer MEDICARE, SELFPAY | END 2020-12-01 10:29 | disposition home or self-care (01) | LOC: WOUND 10:28 | PROVIDERS: PCP Internal Medicine; Visit Provider Thoracic Surgery (Cardiothoracic Vascular Surgery) | DX: I73.9 Peripheral vascular disease, unspecified (principal); L97.512 Non-pressure chronic ulcer of other part of right foot with fat layer exposed; Z89.421 Acquired absence of other right toe(s) | CPT/HCPCS: 11042 ==

== ENCOUNTER 2020-12-08 10:30 | Outpatient (CLI) | payer MEDICARE, SELFPAY | END 2020-12-08 10:31 | disposition home or self-care (01) | LOC: WOUND 10:31 | PROVIDERS: PCP Internal Medicine; Visit Provider Thoracic Surgery (Cardiothoracic Vascular Surgery) | DX: I73.9 Peripheral vascular disease, unspecified (principal); L97.522 Non-pressure chronic ulcer of other part of left foot with fat layer exposed; Z89.421 Acquired absence of other right toe(s) | CPT/HCPCS: 11042 ==

== ENCOUNTER 2020-12-15 10:31 | Outpatient (CLI) | payer MEDICARE, SELFPAY | END 2020-12-15 10:32 | disposition home or self-care (01) | LOC: WOUND 10:32 | PROVIDERS: PCP Internal Medicine; Visit Provider Thoracic Surgery (Cardiothoracic Vascular Surgery) | DX: I73.9 Peripheral vascular disease, unspecified (principal); L97.512 Non-pressure chronic ulcer of other part of right foot with fat layer exposed; Z89.421 Acquired absence of other right toe(s) | CPT/HCPCS: 11042 ==

== ENCOUNTER 2020-12-29 09:47 | Outpatient (CLI) | payer MEDICARE, SELFPAY | END 2020-12-29 09:48 | disposition home or self-care (01) | LOC: WOUND 09:48 | PROVIDERS: PCP Internal Medicine; Visit Provider Thoracic Surgery (Cardiothoracic Vascular Surgery) | DX: I73.9 Peripheral vascular disease, unspecified (principal); L97.512 Non-pressure chronic ulcer of other part of right foot with fat layer exposed; Z89.421 Acquired absence of other right toe(s) | CPT/HCPCS: 97597 ==

== ENCOUNTER 2021-01-05 08:23 | Outpatient (CLI) | payer MEDICARE, SELFPAY | END 2021-01-05 08:24 | disposition home or self-care (01) | LOC: WOUND 08:24 | PROVIDERS: PCP Internal Medicine; Visit Provider Thoracic Surgery (Cardiothoracic Vascular Surgery) | DX: Z09 Encounter for follow-up examination after completed treatment for conditions other than malignant neoplasm (principal); Z89.421 Acquired absence of other right toe(s) | CPT/HCPCS: 99212 ==

== ENCOUNTER 2021-01-22 14:18 | Outpatient (CLI) | payer MEDICARE, SELFPAY ==
[2021-01-22 15:07] LABS: Basophils # 0.1 10^3/uL (0.0-0.1); Basophils % 0.8 %; Eosinophils # 0.4 10^3/uL (0.0-0.8); Eosinophils % 4.1 %; Hematocrit 40.8 % (37.0-47.0); Hemoglobin 12.6 g/dL (11.5-15.3); Lymphocytes # 2.3 10^3/uL (0.8-4.8); Mean Corpuscular HGB Conc 30.9 g/dL (30.0-36.0); Mean Corpuscular Hemoglobin 28.1 pg (28.0-34.0); Mean Corpuscular Volume 90.9 fl (81-99); Mean Platelet Volume 9.8 fL (7.4-10.4); Monocytes % 10.7 %; Neutrophils # 5.36 10^3/uL (1.8-7.7); Neutrophils % 59.2 %; Nucleated Red Blood Cells % 0 %; Platelet Count 317 10^3/cmm (130-400); Red Blood Count 4.49 10^6/uL (4.1-5.3); Red Cell Distribution Width 14.7 % (12.1-15.1); White Blood Count 9.1 10^3/uL (4.0-10.0)
[2021-01-22 15:28] LABS: Alanine Aminotransferase 10 U/L (0-33); Albumin Level 3.6 g/dL (3.5-5.2); Alkaline Phosphatase 77 IU/L (35-105); Aspartate Amino Transferase 21 U/L (0-32); C Reactive Protein 13.7 mg/L (0.0-4.9); Globulin 3.8 g/dL (1.3-4.6); Glomerular Filtration Rate 127.2 mL/min (90-130); Total Bilirubin 0.3 mg/dL (0.15-1.2); Total Protein 7.4 g/dL (6.6-8.7)
[2021-01-22 15:43] LABS: Complement C3 123 mg/dL (90-180)
[2021-01-22 15:45] LABS: Bilirubin Urine Neg (Negative); Blood Urine Neg (Negative); Glucose Urine UA Norm (Normal); Ketones Urine Negative (Negative); Leukocyte Esterase Urine Negative (Negative); Nitrate Urine Negative (Negative); Protein Urine Neg (Negative); Specific Gravity, Urine 1.015 (1.005-1.030); Urine Appearance Clear (CLEAR); Urine Color Straw (Yellow); Urobilinogen Urine Norm (Negative); pH Urine 5 (5-7)
[2021-01-22 16:01] LABS: Urine Creatinine 61 mg/dL (28-217); Urine Protein Random 6 mg/dL
[2021-01-22 16:33] LABS: Add Urine Culture? No; Bacteria Urine TRACE /hpf; Squamous Epithelial Cell Urine 0-4 /hpf (0-5); WBC Urine 0-4 /hpf (0-5)
== END 2021-01-22 14:19 | disposition home or self-care (01) ==
PROVIDERS: PCP Internal Medicine; Visit Provider Internal Medicine Rheumatology
DX: M32.9 Systemic lupus erythematosus, unspecified (principal); Z79.899 Other long term (current) drug therapy
CPT/HCPCS: 80076; 81001; 82565; 82570; 84156; 85025; 86140; 86160

== ENCOUNTER → 2021-06-03 10:23 | Outpatient (BNVA) | payer MEDICARE, SELFPAY | PROVIDERS: PCP Internal Medicine; Visit Provider Internal Medicine Rheumatology | DX: M32.9 Systemic lupus erythematosus, unspecified (principal); Z79.899 Other long term (current) drug therapy; Z79.52 Long term (current) use of systemic steroids; G62.9 Polyneuropathy, unspecified; M81.0 Age-related osteoporosis without current pathological fracture; Z87.310 Personal history of (healed) osteoporosis fracture; K21.9 Gastro-esophageal reflux disease without esophagitis; E03.9 Hypothyroidism, unspecified; L97.519 Non-pressure chronic ulcer of other part of right foot with unspecified severity; Z71.89 Other specified counseling | CPT/HCPCS: 99214 ==

== ENCOUNTER 2021-07-07 09:02 | Outpatient (CLI) | payer MEDICARE, SELFPAY ==
[2021-07-07 09:42] LABS: Basophils # 0.1 10^3/uL (0.0-0.1); Basophils % 0.4 %; Eosinophils # 0.2 10^3/uL (0.0-0.8); Eosinophils % 1.4 %; Hematocrit 46.2 % (37.0-47.0); Hemoglobin 13.6 g/dL (11.5-15.3); Lymphocytes # 2.6 10^3/uL (0.8-4.8); Lymphocytes % 21.4 %; Mean Corpuscular HGB Conc 29.4 g/dL (30.0-36.0); Mean Corpuscular Hemoglobin 28.5 pg (28.0-34.0); Mean Corpuscular Volume 96.9 fl (81-99); Mean Platelet Volume 10.4 fL (7.4-10.4); Monocytes # 0.9 10^3/uL (0.2-0.9); Monocytes % 7.2 %; Neutrophils # 8.48 10^3/uL (1.8-7.7); Neutrophils % 69.4 %; Nucleated Red Blood Cells % 0 %; Platelet Count 311 10^3/cmm (130-400); Red Blood Count 4.77 10^6/uL (4.1-5.3); Red Cell Distribution Width 14.8 % (12.1-15.1); White Blood Count 12.2 10^3/uL (4.0-10.0)
[2021-07-07 09:59] LABS: Alanine Aminotransferase 13 U/L (0-33); Albumin Level 3.4 g/dL (3.5-5.2); Alkaline Phosphatase 82 IU/L (35-105); Aspartate Amino Transferase 28 U/L (0-32); C Reactive Protein 13.7 mg/L (0.0-4.9); Globulin 4.7 g/dL (1.3-4.6); Total Bilirubin 0.3 mg/dL (0.15-1.2); Total Protein 8.1 g/dL (6.6-8.7)
== END 2021-07-07 09:03 | disposition home or self-care (01) ==
PROVIDERS: PCP Internal Medicine; Visit Provider Internal Medicine Rheumatology
DX: M32.9 Systemic lupus erythematosus, unspecified (principal); Z79.899 Other long term (current) drug therapy
CPT/HCPCS: 80076; 82565; 85025; 86140

== ENCOUNTER 2021-09-13 10:17 | Outpatient (CLI) | payer MEDICARE, SELFPAY ==
--- NOTE | 2021-09-13 10:24 | MM_ITS ---
WS: [id number] BILATERAL SCREENING DIGITAL BREAST TOMOSYNTHESIS MAMMOGRAM WITH CAD HISTORY: SCREENING COMPARISON: 10/29/2019 and 08/27/2018 Bilateral CC and MLO views with tomosynthesis and synthetic mammography submitted. Computer aided det ection analyzed. Breast composition: There are scattered areas of fibroglandular density. No suspicious masses, microc alcifications or architectural distortion. Bilateral rodlike calcifications in each breast. MM/[place] [id number] IMPRESSION: BI-RADS: 2-Benign FOLLOW UP: 1 Year Follow-up
== END 2021-09-13 10:18 | disposition home or self-care (01) ==
LOC: RADSHAW 10:18
PROVIDERS: PCP Internal Medicine; Visit Provider Internal Medicine
DX: Z12.31 Encounter for screening mammogram for malignant neoplasm of breast (principal)
CPT/HCPCS: 77063; 77067

== ENCOUNTER → 2021-11-09 10:24 | Outpatient (BNVA) | payer MEDICARE, SELFPAY | PROVIDERS: PCP Internal Medicine; Visit Provider Internal Medicine Rheumatology | DX: M32.9 Systemic lupus erythematosus, unspecified (principal); Z71.89 Other specified counseling; Z79.899 Other long term (current) drug therapy; R76.8 Other specified abnormal immunological findings in serum; Z95.2 Presence of prosthetic heart valve; I27.20 Pulmonary hypertension, unspecified; M81.0 Age-related osteoporosis without current pathological fracture; Z87.310 Personal history of (healed) osteoporosis fracture; K21.9 Gastro-esophageal reflux disease without esophagitis | CPT/HCPCS: 99214 ==

== ENCOUNTER → 2022-06-30 15:13 | Outpatient (BNVA) | payer MEDICARE, SELFPAY | PROVIDERS: PCP Internal Medicine; Visit Provider Internal Medicine Rheumatology | DX: Z79.899 Other long term (current) drug therapy (principal); M32.9 Systemic lupus erythematosus, unspecified | CPT/HCPCS: 36415; 72100; 72202; 80076; 82565; 85025; 86140; 99214 ==

== ENCOUNTER 2022-07-21 10:43 | Outpatient (CLI) | payer MEDICARE, SELFPAY ==
--- NOTE | 2022-07-21 11:00 | XR_ITS ---
WS: [id number] SCREENING DEXA SCAN [facility] CLINICAL INFORMATION: M81.0 - Age-related osteoporosis without current patholog... COMPARISON: 2019 FINDINGS: The L1-L4 bone mineral density measures 1.4. This corresponds to a T score score of 1.6 and Z score o f 2.9. Left femoral neck bone mineral density measures 0.746 g/cm2. This corresponds to a T score of -2.1 an d Z score of -1.0. Right femoral neck bone mineral density measures 0.745 g/cm2. This corresponds to a T score -2.1of an d Z score of -1.0. Mean femoral neck bone mineral density measures 0.745 g/cm2. This corresponds to a T score of -2.1 an d Z score of -1.0. XR/XR DEXA axial skeleton* [id number] IMPRESSION: Normal bone mineralization lumbar spine. Osteopenia femoral necks Patient's FRAX calculated 10 year probability for major osteoporotic fracture i s 31.4 % and osteoporotic hip fracture is 8.5%. Comparison 2019 Bone mineral density has increased 13.0% lumbar spine Bone mineral density femoral necks has increased 1.9%
== END 2022-07-21 10:44 | disposition home or self-care (01) ==
LOC: RAD 10:48
PROVIDERS: PCP Internal Medicine; Visit Provider Internal Medicine Rheumatology
DX: M81.0 Age-related osteoporosis without current pathological fracture (principal)
CPT/HCPCS: 77080

== ENCOUNTER → 2022-08-25 13:07 | Outpatient (BNVA) | payer MEDICARE, SELFPAY | PROVIDERS: PCP Internal Medicine; Visit Provider Podiatrist Foot & Ankle Surgery | DX: I70.239 Atherosclerosis of native arteries of right leg with ulceration of unspecified site (principal); M79.672 Pain in left foot | CPT/HCPCS: 99204 ==

== ENCOUNTER → 2022-08-31 13:16 | Outpatient (BNVA) | payer MEDICARE, SELFPAY | PROVIDERS: PCP Internal Medicine; Visit Provider Podiatrist Foot & Ankle Surgery | DX: L97.522 Non-pressure chronic ulcer of other part of left foot with fat layer exposed; I70.245 Atherosclerosis of native arteries of left leg with ulceration of other part of foot | CPT/HCPCS: 99213 ==

== ENCOUNTER → 2022-09-15 11:09 | Outpatient (BNVA) | payer MEDICARE, SELFPAY | PROVIDERS: PCP Internal Medicine; Visit Provider Podiatrist Foot & Ankle Surgery | DX: I70.239 Atherosclerosis of native arteries of right leg with ulceration of unspecified site (principal) | CPT/HCPCS: 99213 ==

== ENCOUNTER → 2022-09-29 14:18 | Outpatient (BNVA) | payer MEDICARE, SELFPAY | PROVIDERS: PCP Internal Medicine; Visit Provider Internal Medicine Rheumatology | DX: M32.9 Systemic lupus erythematosus, unspecified (principal); Z71.89 Other specified counseling; Z79.899 Other long term (current) drug therapy | CPT/HCPCS: 36415; 80076; 82565; 85025; 86140; 99214 ==

== ENCOUNTER → 2022-10-06 10:05 | Outpatient (BNVA) | payer MEDICARE, SELFPAY | PROVIDERS: PCP Internal Medicine; Visit Provider Podiatrist Foot & Ankle Surgery | DX: L97.522 Non-pressure chronic ulcer of other part of left foot with fat layer exposed (principal); I70.232 Atherosclerosis of native arteries of right leg with ulceration of calf | CPT/HCPCS: 11042; A6219 ==

== ENCOUNTER → 2022-10-24 16:38 | Outpatient (BNVA) | payer MEDICARE, SELFPAY | PROVIDERS: PCP Internal Medicine; Visit Provider Podiatrist Foot & Ankle Surgery | DX: Z51.89 Encounter for other specified aftercare (principal); I70.239 Atherosclerosis of native arteries of right leg with ulceration of unspecified site; L97.522 Non-pressure chronic ulcer of other part of left foot with fat layer exposed | CPT/HCPCS: 11042 ==

== ENCOUNTER → 2022-11-07 13:49 | Outpatient (BNVA) | payer MEDICARE, SELFPAY | PROVIDERS: PCP Internal Medicine; Visit Provider Podiatrist Foot & Ankle Surgery | DX: I70.245 Atherosclerosis of native arteries of left leg with ulceration of other part of foot; L97.522 Non-pressure chronic ulcer of other part of left foot with fat layer exposed | CPT/HCPCS: 99213 ==

== ENCOUNTER 2022-11-22 07:01 | Outpatient (CLI) | payer MEDICARE, SELFPAY ==
--- NOTE | 2022-11-22 07:00 | CTR_ITS ---
PROCEDURE INFORMATION: Exam: CTA Abdominal Aorta and Bilateral Lower Extremities (Run-off) With Contrast Exam date and time: 11/22/2022 7:29 AM Age: 57 years old Clinical indication: Condition or disease; Other: Severe peripheral arterial disease; Prior surgery; Surgery date: 6+ months; Patient HX: Non healing sore on side of left 5th digit area since July, had 5th digit removed as a child. TECHNIQUE: Imaging protocol: Computed tomographic angiography of the of the abdominal aorta, pelvis and bilateral lower extremities with contrast. 3D rendering (Not supervised by radiologist): MIP and/or 3D reconstructed images were created by the technologist. Radiation optimization: All CT scans at this facility use at least one of these dose optimization techniques: automated exposure control; mA and/or kV adjustment per patient size (includes targeted exams where dose is matched to clinical indication); or iterative reconstruction. Contrast material: OMNI 350; Contrast volume: 95 ml; Contrast route: INTRAVENOUS (IV); REPORTING DATA: Count of CT and Cardiac NM exams in prior 12 months: This patient has received 0 known CTs and 0 known cardiac nuclear medicine studies in the 12 months prior to the current study. COMPARISON: 1. CT angio abd aorta runof [id number] 02/28/2020 2:[address] abdomen pelvis w con* [id number] 08/30/2020 5:39 PM RADIATION DOSE METRICS: Total DLP (mGy-cm): 1291.22 FINDINGS: Aorta: There is mild aortic atherosclerotic disease. There is no aortic dissection or aneurysm. Celiac trunk and mesenteric arteries: Inferior mesenteric artery is normal. Superior mesenteric artery and visible branches are normal. Celiac artery is normal. Common hepatic artery is normal. Marked calcific plaque without high-grade stenosis in the splenic artery proximally. Occlusion of the splenic artery distally. Small collateral arteries perfuse the spleen. Renal arteries: Renal arteries are normal. Right iliac arteries: Mild calcific plaque without stenosis in the right common iliac artery. No high-grade stenosis in the right internal iliac artery. Normal right external iliac artery. Right femoral/popliteal arteries: Normal right common femoral artery. Mild calcific plaque without stenosis in the right profundus femoris artery. Mild diffuse calcific plaque without significant stenosis in the right superficial femoral artery. There is multifocal less than 50% stenosis at the level of Star's canal on the right. There is mild calcific plaque with less than 50% stenosis in the right popliteal artery. Right infrapopliteal arteries: The right tibioperoneal trunk is patent and demonstrates moderate diffuse calcific plaque. The right anterior tibial artery is patent to the foot. The right peroneal artery is patent to the foot. The right posterior tibial artery is occluded proximally. There is moderate diffuse calcific plaque of the infrapopliteal arteries on the right. Left iliac arteries: Mild calcific plaque without stenosis in the left common iliac artery. No high-grade stenosis in the left internal iliac artery. Normal left external iliac artery. Left femoral/popliteal arteries: There is mild calcific plaque without stenosis in the left popliteal artery. There is mild diffuse calcific plaque without stenosis in the left superficial femoral artery. The left common femoral artery is normal. The left profundus femoris artery is normal. Left infrapopliteal arteries: There is moderate diffuse calcific plaque of the infrapopliteal arteries on the left. There is patent 3 vessel runoff to the left foot. There is mild calcific plaque and less than 50% stenosis in the left tibioperoneal trunk. Veins: There are contrast filled collateral vessels at the splenic hilum. Large superficial venous varices in the lower extremities bilaterally. Lungs: There is subsegmental atelectasis in the lung bases. Liver: There are multiple foci of liver parenchymal hyperenhancement in the right and left lobes measuring up to 8 mm diameter. Diaphragm: There is a small sliding-type hiatal hernia. Gallbladder and bile ducts: The gallbladder is absent. There is no intrahepatic or extrahepatic bile duct dilation. Pancreas: There is moderate atrophy of the pancreas. Spleen: Heterogeneous enhancement pattern of the small irregular spleen. Adrenal glands: The adrenal glands are unremarkable. Kidneys and ureters: The kidneys are unremarkable. No hydronephrosis or stones. No ureteral dilation. Stomach and bowel: The stomach is decompressed, preventing meaningful evaluation of wall thickness. The small bowel is nondilated. The colon is unremarkable. Appendix: The appendix is normal. Urinary bladder: There is mild diffuse thickening of the bladder wall which could represent muscular hypertrophy or cystitis. Reproductive: The uterus is unremarkable. There is no adnexal mass or large cyst. Intraperitoneal space: There is no free air or significant intraperitoneal free fluid. Lymph nodes: There is no lymphadenopathy in the retroperitoneum, mesentery, pelvis or inguinal regions. Bones/joints: There are chronic bilateral L5 pars defects with grade 2 anterolisthesis of L5 on S1. Chronic displaced left L4 pars defect. Severe compression fracture with platyspondyly at T11. Severe L1 through L5 lumbar compression fractures, new at L5 and L2 since 02/28/2020. Amputation of the right 2nd toe. Chronic deformity of the left 4th toe. Amputation of the left 5th toe. Healed right pubic fractures. Healed right sacral alar fracture. There is severe multilevel degenerative disease in the lumbar spine. Soft tissues: The abdominal wall is intact. CT/CT angio abd aorta runof [id number] IMPRESSION: 1. No hemodynamically significant arterial stenosis to the level of the infrapopliteal arteries bilaterally. 2. Diffuse calcific plaque of the infrapopliteal arteries diffusely bilaterally. Patent 2 vessel runoff to the right foot. Patent 3 vessel runoff to the left foot. 3. Diffuse severe lumbar compression fractures, new at L5 and L2 since 02/28/2020. 4. 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 Small collateral arteries perfuse the spleen. 5. Subcentimeter hyperenhancing liver nodules, too small to fully characterize. In a low-risk patient, this is most likely to be benign and no further follow-up is recommended. In a high-risk patient, follow-up MRI in 3-6 months is recommended (or earlier if warranted by the patient's specific clinical circumstances). (Reference: Mohsen) 6. Incidental findings above. REFERENCES: Mohsen GODOY, et al. Management of Incidental Liver Lesions on CT: A White Paper of the ACR Incidental Findings Committee. J Am Rosita Radiol. 2017;14(11):2684-5616.
[2022-11-22] MEDS: iohexol 350 mg/mL 500 mL Btl (per mL) IV (07:41)
== END 2022-11-22 07:02 | disposition home or self-care (01) ==
LOC: RAD 07:05
PROVIDERS: PCP Internal Medicine; Visit Provider Podiatrist Foot & Ankle Surgery
DX: I70.203 Unspecified atherosclerosis of native arteries of extremities, bilateral legs (principal); I70.239 Atherosclerosis of native arteries of right leg with ulceration of unspecified site; M79.672 Pain in left foot; S91.105A Unspecified open wound of left lesser toe(s) without damage to nail, initial encounter; X58.XXXA Exposure to other specified factors, initial encounter; I70.8 Atherosclerosis of other arteries; D73.5 Infarction of spleen; S32.028A Other fracture of second lumbar vertebra, initial encounter for closed fracture; S32.058A Other fracture of fifth lumbar vertebra, initial encounter for closed fracture
CPT/HCPCS: 75635; Q9967

== ENCOUNTER → 2022-11-28 13:57 | Outpatient (BNVA) | payer MEDICARE, SELFPAY | PROVIDERS: PCP Internal Medicine; Visit Provider Thoracic Surgery (Cardiothoracic Vascular Surgery) | DX: I96 Gangrene, not elsewhere classified (principal); L97.522 Non-pressure chronic ulcer of other part of left foot with fat layer exposed | CPT/HCPCS: 11042; 99213; A6212 ==

== ENCOUNTER → 2022-12-05 14:11 | Outpatient (BNVA) | payer MEDICARE, SELFPAY | PROVIDERS: PCP Internal Medicine; Visit Provider Nurse Practitioner Family | DX: I96 Gangrene, not elsewhere classified (principal); L97.522 Non-pressure chronic ulcer of other part of left foot with fat layer exposed | CPT/HCPCS: 11042 ==

== ENCOUNTER 2022-12-12 16:26 | Outpatient (CLI) | payer MEDICARE, SELFPAY ==
--- NOTE | 2022-12-12 16:39 | XR_ITS ---
WS: [id number] Left foot, 3 views, 12/12/2022 Clinical Data: non-healing ulcer; bone exposure; rule out osteomyelitis Comparison: None. Findings: There is amputation of the left fifth toe. There is erosion of the proximal phalanx of the left fourt h toe. There are calcifications in the subcutaneous tissue of the distal left foot. There are vascula r calcifications in the left foot. There are no fractures or dislocations. Impression: 1. Amputation left fifth toe. 2. Vascular calcifications and subcutaneous calcifications in the distal left foot. 3. Erosion of the proximal phalanx of the left fourth toe with possible osteomyelitis.
== END 2022-12-12 16:27 | disposition home or self-care (01) ==
PROVIDERS: PCP Internal Medicine; Visit Provider Thoracic Surgery (Cardiothoracic Vascular Surgery)
DX: I70.245 Atherosclerosis of native arteries of left leg with ulceration of other part of foot (principal); Z89.422 Acquired absence of other left toe(s)
CPT/HCPCS: 11042; 73630

== ENCOUNTER → 2022-12-19 11:07 | Outpatient (BNVA) | payer MEDICARE, SELFPAY | PROVIDERS: PCP Internal Medicine; Visit Provider Thoracic Surgery (Cardiothoracic Vascular Surgery) | DX: I73.9 Peripheral vascular disease, unspecified (principal); L97.522 Non-pressure chronic ulcer of other part of left foot with fat layer exposed | CPT/HCPCS: 11044; 87070; 87077; 87176; 87186; 87205 ==

== ENCOUNTER → 2022-12-26 10:59 | Outpatient (BNVA) | payer MEDICARE, SELFPAY | PROVIDERS: PCP Internal Medicine; Visit Provider Thoracic Surgery (Cardiothoracic Vascular Surgery) | DX: I73.9 Peripheral vascular disease, unspecified (principal); L97.526 Non-pressure chronic ulcer of other part of left foot with bone involvement without evidence of necrosis | CPT/HCPCS: 97597 ==

== ENCOUNTER 2023-01-02 13:16 | Outpatient (CLI) | payer MEDICARE, SELFPAY ==
[2023-01-02 14:32] LABS: Basophils # 0.1 10^3/uL (0.0-0.1); Basophils % 0.7 %; Eosinophils # 0.2 10^3/uL (0.0-0.8); Hematocrit 39.5 % (36-47); Lymphocytes # 1.9 10^3/uL (0.8-4.8); Lymphocytes % 19.6 %; Mean Corpuscular HGB Conc 30.4 g/dL (30-55); Mean Corpuscular Hemoglobin 29.3 pg (27-33); Mean Corpuscular Volume 96.3 fl (85-98); Mean Platelet Volume 10.6 fL (7.4-10.4); Monocytes % 20.9 %; Neutrophils # 5.32 10^3/uL (1.8-7.7); Neutrophils % 56.4 %; Nucleated Red Blood Cells % 0 %; Platelet Count 278 10^3/cmm (157-399); Red Cell Distribution Width 13.3 % (12.1-15.1); White Blood Count 9.44 10^3/uL (3.29-11.43)
[2023-01-02 15:01] LABS: Anion Gap 12.4 (5-19); Blood Urea Nitrogen 7 mg/dL (6-20); C Reactive Protein 50.5 mg/L (0.0-4.9); Calcium 8.7 mg/dL (8.5-10.5); Carbon Dioxide 31 mmol/L (22-29); Chloride 102 mmol/L (98-107); Glomerular Filtration Rate 102.3 mL/min (90-130); Glucose 76 mg/dL (65-115); Osmolality Calculated 291 mOsm/kg (285-295); Potassium 3.4 mmol/L (3.5-5.1); Sodium 142 mmol/L (136-145)
== END 2023-01-02 13:17 | disposition home or self-care (01) ==
LOC: LAB 13:18
PROVIDERS: PCP Internal Medicine; Visit Provider Thoracic Surgery (Cardiothoracic Vascular Surgery)
DX: M86.9 Osteomyelitis, unspecified (principal); Z79.899 Other long term (current) drug therapy; I73.9 Peripheral vascular disease, unspecified; L97.522 Non-pressure chronic ulcer of other part of left foot with fat layer exposed
CPT/HCPCS: 11042; 36415; 80048; 85025; 86140; A6219

== ENCOUNTER → 2023-01-09 14:56 | Outpatient (BNVA) | payer MEDICARE, SELFPAY | PROVIDERS: PCP Internal Medicine; Visit Provider Nurse Practitioner Family | DX: I73.9 Peripheral vascular disease, unspecified (principal); L97.522 Non-pressure chronic ulcer of other part of left foot with fat layer exposed | CPT/HCPCS: 11042 ==

== ENCOUNTER → 2023-01-18 15:18 | Outpatient (BNVA) | payer MEDICARE, SELFPAY | PROVIDERS: PCP Internal Medicine; Visit Provider Thoracic Surgery (Cardiothoracic Vascular Surgery) | DX: I73.9 Peripheral vascular disease, unspecified (principal); L97.521 Non-pressure chronic ulcer of other part of left foot limited to breakdown of skin | CPT/HCPCS: 97597; A6021; A6248 ==

== ENCOUNTER → 2023-01-25 14:50 | Outpatient (BNVA) | payer MEDICARE, SELFPAY | PROVIDERS: PCP Internal Medicine; Visit Provider Thoracic Surgery (Cardiothoracic Vascular Surgery) | DX: I73.9 Peripheral vascular disease, unspecified (principal); L97.526 Non-pressure chronic ulcer of other part of left foot with bone involvement without evidence of necrosis | CPT/HCPCS: 11042; A6021; A6248 ==

== ENCOUNTER → 2023-02-01 13:29 | Outpatient (BNVA) | payer MEDICARE, SELFPAY | PROVIDERS: PCP Internal Medicine; Visit Provider Thoracic Surgery (Cardiothoracic Vascular Surgery) | DX: I73.9 Peripheral vascular disease, unspecified (principal); L97.521 Non-pressure chronic ulcer of other part of left foot limited to breakdown of skin | CPT/HCPCS: 97597; A6021 ==

== ENCOUNTER → 2023-02-08 09:57 | Outpatient (BNVA) | payer MEDICARE, SELFPAY | PROVIDERS: PCP Internal Medicine; Visit Provider Thoracic Surgery (Cardiothoracic Vascular Surgery) | DX: I73.9 Peripheral vascular disease, unspecified (principal); L97.526 Non-pressure chronic ulcer of other part of left foot with bone involvement without evidence of necrosis | CPT/HCPCS: 97597; A6021 ==

== ENCOUNTER → 2023-02-15 14:57 | Outpatient (BNVA) | payer MEDICARE, SELFPAY | PROVIDERS: PCP Internal Medicine; Visit Provider Nurse Practitioner Family | DX: I73.9 Peripheral vascular disease, unspecified (principal); L97.522 Non-pressure chronic ulcer of other part of left foot with fat layer exposed | CPT/HCPCS: 11042; A6021 ==

== ENCOUNTER → 2023-02-22 12:46 | Outpatient (BNVA) | payer MEDICARE, SELFPAY | PROVIDERS: PCP Internal Medicine; Visit Provider Internal Medicine Rheumatology | DX: Z71.89 Other specified counseling (principal); Z79.899 Other long term (current) drug therapy; M32.9 Systemic lupus erythematosus, unspecified | CPT/HCPCS: 99214 ==

== ENCOUNTER → 2023-02-24 09:03 | Outpatient (BNVA) | payer MEDICARE, SELFPAY | PROVIDERS: PCP Internal Medicine; Visit Provider Thoracic Surgery (Cardiothoracic Vascular Surgery) | DX: I73.9 Peripheral vascular disease, unspecified (principal); L97.521 Non-pressure chronic ulcer of other part of left foot limited to breakdown of skin | CPT/HCPCS: 97597; A6021 ==

== ENCOUNTER → 2023-03-03 09:58 | Outpatient (BNVA) | payer MEDICARE, SELFPAY | PROVIDERS: PCP Internal Medicine; Visit Provider Thoracic Surgery (Cardiothoracic Vascular Surgery) | DX: I73.9 Peripheral vascular disease, unspecified (principal); L97.521 Non-pressure chronic ulcer of other part of left foot limited to breakdown of skin | CPT/HCPCS: 97597; A6021 ==

== ENCOUNTER → 2023-03-10 09:41 | Outpatient (BNVA) | payer MEDICARE, SELFPAY | PROVIDERS: PCP Internal Medicine; Visit Provider Thoracic Surgery (Cardiothoracic Vascular Surgery) | DX: I73.9 Peripheral vascular disease, unspecified (principal); L97.521 Non-pressure chronic ulcer of other part of left foot limited to breakdown of skin | CPT/HCPCS: 97597; A6021 ==

== ENCOUNTER → 2023-03-17 10:00 | Outpatient (BNVA) | payer MEDICARE, SELFPAY | PROVIDERS: PCP Internal Medicine; Visit Provider Nurse Practitioner Family | DX: I73.9 Peripheral vascular disease, unspecified (principal); L97.522 Non-pressure chronic ulcer of other part of left foot with fat layer exposed | CPT/HCPCS: 11042; A6021 ==

== ENCOUNTER → 2023-03-24 08:56 | Outpatient (BNVA) | payer MEDICARE, SELFPAY | PROVIDERS: PCP Internal Medicine; Visit Provider Thoracic Surgery (Cardiothoracic Vascular Surgery) | DX: I73.9 Peripheral vascular disease, unspecified (principal); L97.521 Non-pressure chronic ulcer of other part of left foot limited to breakdown of skin | CPT/HCPCS: 97597; A6021; A6248 ==

== ENCOUNTER → 2023-03-31 10:07 | Outpatient (BNVA) | payer MEDICARE, SELFPAY | PROVIDERS: PCP Internal Medicine; Visit Provider Thoracic Surgery (Cardiothoracic Vascular Surgery) | DX: I73.9 Peripheral vascular disease, unspecified (principal); L97.521 Non-pressure chronic ulcer of other part of left foot limited to breakdown of skin | CPT/HCPCS: 11042; A6021 ==

== ENCOUNTER → 2023-04-07 09:59 | Outpatient (BNVA) | payer MEDICARE, SELFPAY | PROVIDERS: PCP Internal Medicine; Visit Provider Thoracic Surgery (Cardiothoracic Vascular Surgery) | DX: I73.9 Peripheral vascular disease, unspecified (principal); L97.521 Non-pressure chronic ulcer of other part of left foot limited to breakdown of skin | CPT/HCPCS: 11042; 87070; 87075; 87077; 87186; 87205 ==

== ENCOUNTER → 2023-04-14 08:52 | Outpatient (BNVA) | payer MEDICARE, SELFPAY | PROVIDERS: PCP Internal Medicine; Visit Provider Thoracic Surgery (Cardiothoracic Vascular Surgery) | DX: I73.9 Peripheral vascular disease, unspecified (principal); L97.521 Non-pressure chronic ulcer of other part of left foot limited to breakdown of skin | CPT/HCPCS: 97597; A6210 ==

== ENCOUNTER → 2023-04-21 09:01 | Outpatient (BNVA) | payer MEDICARE, SELFPAY | PROVIDERS: PCP Internal Medicine; Visit Provider Thoracic Surgery (Cardiothoracic Vascular Surgery) | DX: I73.9 Peripheral vascular disease, unspecified (principal); L97.521 Non-pressure chronic ulcer of other part of left foot limited to breakdown of skin | CPT/HCPCS: 11042; A6210 ==

== ENCOUNTER → 2023-04-27 10:12 | Outpatient (BNVA) | payer MEDICARE, SELFPAY | PROVIDERS: PCP Internal Medicine; Visit Provider Thoracic Surgery (Cardiothoracic Vascular Surgery) | DX: Z09 Encounter for follow-up examination after completed treatment for conditions other than malignant neoplasm (principal) | CPT/HCPCS: 99212 ==

== ENCOUNTER 2023-05-18 08:50 | Outpatient (CLI) | payer MEDICARE, SELFPAY ==
--- NOTE | 2023-05-18 08:53 | MM_ITS ---
WS: [id number] VIEWS: MLO and CC views both breasts. 3D digital tomosynthesis is also included in this exam. Comparison made with prior exam of 07/31/2014, 08/27/2018, 10/29/2019, 09/13/2021.. Findings: There was no sign of mass, architectural distortion or suspicious calcification in either breast. The re are scattered areas of fibroglandular density Impression: MM/[place] [id number] BI-RADS: 2-Benign finding FOLLOW-UP: 1 Year Follow-up This mammogram was also analyzed by the Computer Aided Detection System R2 Imag e Mint Machine Operator.
--- NOTE | 2023-05-18 08:55 | USCV_ITS ---
Sari Bain Age: 57 Gender: F : 1965 Exam Date: 05/18/2023 08:44 Ordering Phys: Emily Vitale MD Technologist: [place] [facility] [place]: avr BP: 148 / 80 HR: Rhythm: Sinus Technical Quality: Adequate MEASUREMENTS (Male / Female) Normal Values 2D ECHO LVOT Diameter 2.0 cm LV Ejection Fraction MOD 2C 45.5 % LV Ejection Fraction 2C AL 0.0 % LA Diameter 5.2 cm Aorta at Sinotubular Diameter 2.2 cm IVC Diameter 1.6 cm M-MODE LA Ao Ratio MM 2.6 AV Cusp Separation MM 1.1 cm DOPPLER AV Peak Velocity 409.0 cm/s LVOT Peak Velocity 69.0 cm/s AV Area Cont Eq vti 0.5 cm squared AV Area Cont Eq pk 0.5 cm squared MV Peak Velocity 413.0 cm/s MV Area PHT 2.6 cm squared Mitral E to A Ratio 1.4 TR Peak Velocity 369.0 cm/s TR Peak Gradient 54.5 mmHg TV Peak E Velocity 58.0 cm/s Right Atrial Pressure 3.0 mmHg Pulmonary Artery Systolic Pressu 57.5 mmHg PV Peak Velocity 75.0 cm/s FINDINGS Left Ventricle Moderate concentric left ventricular hypertrophy. Normal LV size with ejection fraction of around 55% (visual). Grade III/IV diastolic dysfunction (restrictive filling pattern), severely elevated filling pressures. Right Ventricle The right ventricle is normal in size and function. Right Atrium The right atrium is normal in size. Left Atrium Moderately increased left atrial size. Mitral Valve Moderate to heavy mitral annular calcification. Calcification in the mitral chordal structures.mild mitral valve regurgitation. Aortic Valve Moderate aortic valve calcification.trace aortic valve regurgitation. Severe aortic valve stenosis, mean gradient 46.8 mmHg, HARINI 0.45 cm squared. Peak velocity of 4.12 m/s Tricuspid Valve [id number] tricuspid valve regurgitation. Thickened tricuspid valve. Estimated pulmonary artery peak systolic pressure 57 mmHg Pulmonic Valve Mild pulmonary valve regurgitation. Pericardium No pericardial effusion. Aorta Normal ascending aorta dimension. IVC Normal inferior vena cava. CONCLUSIONS Moderate concentric left ventricular hypertrophy. Normal LV size with ejection fraction of around 55% (visual). Grade III/IV diastolic dysfunction (restrictive filling pattern), severely elevated filling pressures. Moderately increased left atrial size. Moderate to heavy mitral annular calcification. Calcification in the mitral chordal structures.mild mitral valve regurgitation. Severe aortic valve stenosis, mean gradient 46.8 mmHg, HARINI 0.45 cm squared. Peak velocity of 4.12 m/s. Moderate aortic valve calcification.trace aortic valve regurgitation. [id number] tricuspid valve regurgitation. Moderate pulmonary hypertension with an estimated pulmonary artery peak systolic pressure of 57 mmHg. Mild pulmonary valve regurgitation. There is no pericardial effusion. There are no intracardiac masses. Compared to the study from 12/13/2018, there is worsening of the aortic valve stenosis Dr Jovanni Lopez MD FACC (Electronically Signed) Final Date: 21 May 2023 18:00 S
== END 2023-05-18 08:51 | disposition home or self-care (01) ==
LOC: RAD 08:50
PROVIDERS: PCP Internal Medicine; Visit Provider Internal Medicine
DX: I47.19 Other supraventricular tachycardia (principal); I08.3 Combined rheumatic disorders of mitral, aortic and tricuspid valves; I27.20 Pulmonary hypertension, unspecified; Z12.31 Encounter for screening mammogram for malignant neoplasm of breast
CPT/HCPCS: 77063; 77067; 93306

== ENCOUNTER 2023-06-27 13:53 | Outpatient (CLI) | payer MEDICARE, SELFPAY ==
[2023-06-27 14:40] LABS: Basophils # 0.1 10^3/uL (0.0-0.1); Basophils % 0.7 %; Eosinophils # 0.1 10^3/uL (0.0-0.8); Eosinophils % 0.9 %; Hematocrit 35.7 % (36-47); Lymphocytes # 2.1 10^3/uL (0.8-4.8); Lymphocytes % 26.8 %; Mean Corpuscular Volume 86.7 fl (85-98); Mean Platelet Volume 10.5 fL (7.4-10.4); Monocytes % 12.4 %; Neutrophils # 4.55 10^3/uL (1.8-7.7); Neutrophils % 59.1 %; Nucleated Red Blood Cells % 0 %; Platelet Count 369 10^3/cmm (157-399); Red Blood Count 4.12 10^6/uL (3.85-5.65); Red Cell Distribution Width 14.2 % (12.1-15.1); White Blood Count 7.69 10^3/uL (3.29-11.43)
[2023-06-27 15:00] LABS: Alanine Aminotransferase 9 U/L (0-33); Albumin Level 3.5 g/dL (3.5-5.2); Alkaline Phosphatase 79 U/L (35-105); Aspartate Amino Transferase 20 U/L (0-32); C Reactive Protein 48.5 mg/L (0.0-4.9); Globulin 3.7 g/dL (1.3-4.6); Glomerular Filtration Rate 102.3 mL/min (90-130); Total Bilirubin 0.4 mg/dL (0.15-1.2); Total Protein 7.2 g/dL (6.6-8.7)
== END 2023-06-27 13:54 | disposition home or self-care (01) ==
LOC: LAB 13:55
PROVIDERS: PCP Internal Medicine; Visit Provider Internal Medicine Rheumatology
DX: Z79.899 Other long term (current) drug therapy (principal); M32.9 Systemic lupus erythematosus, unspecified
CPT/HCPCS: 36415; 80076; 82565; 85025; 86140

== ENCOUNTER 2023-08-03 15:59 | Outpatient (CLI) | payer MEDICARE, SELFPAY ==
--- NOTE | 2023-08-03 16:08 | XRR_ITS ---
PROCEDURE INFORMATION: Exam: XR Chest Exam date and time: 08/03/2023 4:13 PM Age: 57 years old Clinical indication: Shortness of breath TECHNIQUE: Imaging protocol: Radiologic exam of the chest. Views: 2 views. COMPARISON: CR XR chest 1V portable [id number] 08/30/2020 4:08 PM FINDINGS: Lungs: Coarse reticular changes of interstitium. Negative for focal consolidation. There is some haziness of the lung parenchyma bilaterally which may represent mild edema. Pleural spaces: Unremarkable. No pleural effusion. No pneumothorax. Heart/Mediastinum: CABG. Probable cardiac valve surgical changes. Bones/joints: Lumbar spondyloarthropathy. Multiple chronic compression fracture deformities of the lower thoracic spine and upper lumbar spine. XR/XR chest 2V* [id number] IMPRESSION: Mild hazy lung opacities without localized consolidation. Consider mild pulmonary edema.
== END 2023-08-03 16:00 | disposition home or self-care (01) ==
LOC: RAD 16:01
PROVIDERS: PCP Internal Medicine; Visit Provider Nurse Practitioner Family
DX: R06.02 Shortness of breath (principal)
CPT/HCPCS: 71046

== ENCOUNTER 2023-08-13 02:07 | Emergency (ER) | payer MEDICARE, SELFPAY ==
[2023-08-13] VITALS (10 sets, daily range): BP systolic 117–134; BP diastolic 60–82; PULSE 85–96; RESP 15–33; TEMP 36.8; O2SAT 84–98; BMI 22.4
--- NOTE | 2023-08-13 02:35 | XRR_ITS ---
PROCEDURE INFORMATION: Exam: XR Chest Exam date and time: 08/13/2023 3:10 AM Age: 57 years old Clinical indication: Shortness of breath; Prior surgery; Surgery date: 6+ months; Surgery type: Thyroidectomy. Aortic valve. Gb; Patient HX: C/O SOB. ; Additional info: Dyspnea TECHNIQUE: Imaging protocol: Radiologic exam of the chest. Views: 1 view. COMPARISON: CR XR chest 2V* [id number] 08/03/2023 4:13 PM FINDINGS: Lungs: Chronic coarse reticular changes of the interstitium. Negative for consolidation. Hypoaeration. Pleural spaces: Unremarkable. No pleural effusion. No pneumothorax. Heart/Mediastinum: Cardiomegaly. Aortic valve replacement. Bones/joints: Unremarkable. XR/XR chest 1V portable [id number] IMPRESSION: 1. No change in exam. 2. Negative for focal pulmonary consolidation.
--- NOTE | 2023-08-13 02:40 | ED_ITS ---
HPI - SOB/Dyspnea 2 General: Chief Complaint: Shortness of Breath/Dyspnea Stated Complaint: SOB Time Seen by Provider: 08/13/23 02:28 History of Present Illness: HPI Narrative: Presents to the ER with complaints of shortness of breath over the last 2 weeks. Patient has seen her PCP had chest x-ray but upon antibiotics that she is finishing today. Patient says this has not helped. Patient said PCP told her she had pulmonary disease. Patient knows she has aortic stenosis and has had a valve replaced in the past. Patient has an upcoming appointment with her talent consultant and has just had an echo. Patient says while she sits down her breathing is just fine but when she gets up and walks any distance she gets short of breath. Patient is satting 95 to 99% on room air while sitting down in the room. Review of Systems 2 General: Reports: 10 or more systems reviewed and unremarkable except in HPI and below PFSH ED 2 PFSH: Medical History H/O hypokalemia Right foot ulcer Cataract Osteoporosis Peripheral neuropathy Vitamin D deficiency, unspecified Raynaud's syndrome without gangrene Systemic lupus erythematosus (SLE) in adult Surgical History H/O esophagogastroduodenoscopy (12/30/19) with dilation H/O colonoscopy 2016 H/O esophagogastroduodenoscopy 2013 History of cholecystectomy H/O thyroidectomy S/P AVR (aortic valve replacement) Amputation of toe Family History Other CAD (coronary artery disease) Diabetes Hypertension Stroke Denies family history of Rheumatoid arthritis Chronic kidney disease (CKD) Systemic lupus erythematosus (SLE) in adult Cancer Social History Smoking and tobacco/nicotine status: never used tobacco/nicotine Alcohol intake: current Alcohol intake frequency: holidays/special occasions only Substance/Drug Use: never Lives independently: No Household members: spouse Marital status: Current occupational status: disabled Physical Exam 2 Const: COMMON NORMALS: no acute distress, average body habitus, patient oriented x3, no limitations, healthy appearing, alert and well nourished HENMT: COMMON NORMALS: normocephalic, atraumatic, hearing grossly normal bilaterally, external ears normal, Normal external nose present, moist oral mucous membranes and oropharynx normal HEAD & SCALP: normocephalic and atraumatic NOSE: Normal external nose present EXTERNAL EAR: Yes external ears normal Neck/C-Spine: COMMON NORMALS: no JVD Chest: COMMONS NORMALS: normal inspection of the chest and normal palpation of entire chest wall Resp: COMMON NORMALS: normal respiratory effort, No retractions, No use of accessory muscles and clear to auscultation bilaterally AUSCULTATION: clear to auscultation bilaterally Cardio: COMMON NORMALS: no JVD, regular rate, regular rhythm, S1 normal heart sound present, S2 normal heart sound present, No gallops present (Cardio), No clicks present (Cardio), No murmurs present (Cardio) and No rub (Cardio) R ATE: regular rate RHYTHM: regular rhythm HEART SOUNDS: S1 normal heart sound present and S2 normal heart sound present GI: COMMON NORMALS: Normal to inspection, nondistended, normoactive bowel sounds present, Soft to palpation, non-tender, No hepatosplenomegaly present and no masses PALPATION: Yes Soft to palpation and Yes No hepatosplenomegaly present Neuro: COMMON NORMALS: patient oriented x3 SENSORIUM/ORIENTATION: Yes alert Course 2 Vital Signs: Vital signs: Vital Signs Temperature 98.3 F 08/13/23 02:12 Pulse Rate 96 08/13/23 05:00 Respiratory Rate 16 08/13/23 05:00 Blood Pressure 118/82 08/13/23 03:55 Pulse Oximetry 94 08/13/23 05:00 Oxygen Delivery Me thod Room Air 08/13/23 05:00 MDM - SOB/Dyspnea Medical Decision Making Patient had lab work and chest x-ray to start out which showed white count of 6.5, BUN/creatinine of 10 and 0.7, AST and ALT of 483 and 244, BNP of 7173, chest x-ray showed no change in exam and negative. Upon getting lab work back up and patient had such elevated liver enzymes a CT scan of her abdomen pelvis with contrast was ordered as well as her chest which showed intrathoracic fluid overload consistent with CHF otherwise no acute negative intra-abdominal pathology, patient was given 40 mg Lasix IV and home O2 study was obtained by respiratory therapy. Patient never dropped below 92% on room air when walking around so patient does not qualify for home O2. Patient be discharged on Lasix and told to follow-up with her PCP and keep her appointment with her talent consultant. Lab Data 08/13/23 02:57 08/13/23 02:57 Labs/Radiology: Radiology Impressions Chest X-Ray 08/13/23 02:35 IMPRESSION: 1. No change in exam. 2. Negative for focal pulmonary consolidation. Chest/Abdomen/Pelvis CT 08/13/23 03:54 IMPRESSION: Intrathoracic fluid overload features consistent with congestive heart failure. IMPRESSION: 1. Negative for acute abdominopelvic pathology. 2. Negative for biliary obstruction. Laboratory Results WBC 6.55 10^3/uL (3.29-11.43) 08/13/23 02:57 RBC 4.16 10^6/uL (3.85-5.65) 08/13/23 02:57 Hgb 9.80 g/dL (11.27-16.99) L 08/13/23 02:57 Hct 32.8 % (36-47) L 08/13/23 02:57 MCV 78.8 fl (85-98) L 08/13/23 02:57 MCH 23.6 pg (27-33) L 08/13/23 02:57 MCHC 29.9 g/dL (30-55) L 08/13/23 02:57 RDW 15.9 % (12.1-15.1) H 08/13/23 02:57 Plt Count 320 10^3/cmm (157-399) 08/13/23 02:57 MPV 10.8 fL (7.4-10.4) H 08/13/23 02:57 Neut % (Auto) 60.0 % 08/13/23 02:57 Lymph % (Auto) 25.3 % 08/13/23 02:57 Becker % (Auto) 12.8 % 08/13/23 02:57 Eos % (Auto) 0.3 % 08/13/23 02:57 Baso % (Auto) 1.1 % 08/13/23 02:57 Neut # (Auto) 3.93 10^3/uL (1.8-7.7) 08/13/23 02:57 Lymph # (Auto) 1.7 10^3/uL (0.8-4.8) 08/13/23 02:57 Becker # (Auto) 0.8 10^3/uL (0.2-0.9) 08/13/23 02:57 Eos # (Auto) 0.0 10^3/uL (0.0-0.8) 08/13/23 02:57 Baso # (Auto) 0.1 10^3/uL (0.0-0.1) 08/13/23 02:57 Nucleated RBC % (auto) 0.8 % 08/13/23 02:57 Nucleated RBCs # 0.1 /100WBC 08/13/23 02:57 Sodium 135 mmol/L (136-145) L 08/13/23 02:57 Potassium 3.4 mmol/L (3.5-5.1) L 08/13/23 02:57 Chloride 98 mmol/L (98-107) 08/13/23 02:57 Carbon Dioxide 25 mmol/L (22-29) 08/13/23 02:57 Anion Gap 15.4 (5-19) 08/13/23 02:57 BUN 10 mg/dL (6-20) 08/13/23 02:57 Creatinine 0.7 mg/dL (0.5-0.9) 08/13/23 02:57 GFR Calculation 85.6 mL/min (90-130) L 08/13/23 02:57 Glucose 79 mg/dL (65-115) 08/13/23 02:57 Calculated Osmolality 278 mOsm/kg (285-295) L 08/13/23 02:57 Calcium 8.4 mg/dL (8.5-10.5) L 08/13/23 02:57 Total Bilirubin 1.2 mg/dL (0.15-1.2) 08/13/23 02:57 AST 483 U/L (0-32) H 08/13/23 02:57 ALT 244 U/L (0-33) H 08/13/23 02:57 Alkaline Phosphatase 75 U/L (35-105) 08/13/23 02:57 NT-Pro-B Natriuret Pep 7173 pg/mL (0-125) H 08/13/23 02:57 Total Protein 7.2 g/dL (6.6-8.7) 08/13/23 02:57 Albumin 3.3 g/dL (3.5-5.2) L 08/13/23 02:57 Globulin 3.9 g/dL (1.3-4.6) 08/13/23 02:57 All radiology interpretation(s) finalized by discharge Discharge Plan Discharge Patient Disposition: Home Clinical Impression: Elevated liver enzymes Congestive heart failure Qualifiers: Heart failure type: unspecified Heart failure chronicity: unspecified Qualified Code(s): I50.9 - Heart failure, unspecified Condition: Stable Prescriptions: New furosemide [Lasix] 20 mg tablet 20 mg PO DAILY Qty: 14 0RF potassium chloride 20 mEq tablet extended release 20 meq PO DAILY Qty: 14 0RF No Action potassium chloride 20 mEq tablet extended release 60 meq PO DAILY citalopram 40 mg tablet 40 mg PO DAILY multivitamin Tablet 1 tab PO DAILY aspirin 81 mg tablet,delayed release (DR/EC) 81 mg PO DAILY Qty: 90 3RF cholecalciferol (vitamin D3) 50 mcg (2,000 unit) capsule 50 mcg PO DAILY Qty: 90 1RF ciprofloxacin HCl 500 mg tablet 500 mg PO BID Qty: 28 0RF acetaminophen [Tylenol Extra Strength] 500 mg tablet 1,000 mg PO BID alendronate 70 mg tablet 70 mg PO Q7D Qty: 15 1RF Rx Instructions: . ciprofloxacin HCl 500 mg tablet 500 mg PO BID Qty: 42 0RF prednisone 2.5 mg tablet See Rx Instructions .ROUTE .COMPLEX Qty: 90 1RF Dose Instruction: TAKE 1 TABLET BY MOUTH EVERY DAY Rx Instructions: TAKE 1 TABLET BY MOUTH EVERY DAY gabapentin 300 mg capsule See Rx Instructions .ROUTE .COMPLEX Qty: 90 3RF Dose Instruction: take 1 capsule BY MOUTH THREE TIMES DAILY Rx Instructions: take 1 capsule BY MOUTH THREE TIMES DAILY hydroxychloroquine 200 mg tablet See Rx Instructions .ROUTE .COMPLEX Qty: 135 1RF Dose Instruction: ALTERNATE TAKING ONE TABLET BY MOUTH TODAY AND THEN TWO TABLETS TOMORROW DAILY Rx Instructions: ALTERNATE TAKING ONE TABLET BY MOUTH TODAY AND THEN TWO TABLETS TOMORROW DAILY hydrocodone-acetaminophen 5-325 mg tablet 1 tab PO Q6H Qty: 14 0RF levothyroxine 112 mcg tablet 112 mcg PO DAILY 1 tab PO DAILY potassium chloride 20 mEq packet 40 meq PO TID Qty: 6 0RF Discharge Orders: Discharge ED (Routine); Ordered 08/13/23 Ordered By: Ran Fermin Referrals: Emily Vitale MD [Primary Care Provider] - 1 week Patient Instructions: Congestive Heart Failure Activity Restrictions/Additional Instructions: Your lab work in ER showed your liver enzymes are significantly elevated. Also it shows you have fluid overload probably from congestive heart failure. Your CT scan did not show any anatomical reason for your liver to be irritated. Your oxygen did not drop low enough to be approved for home oxygen by respiratory therapy when they walk around the hallway. You have been prescribed Lasix to help you diurese off all your excess fluid which will help your breathing. You have also been prescribed potassium to help replace her potassium that you will lose in your urine. Please use these as directed. Please keep your appointment with your talent consultant and family practice doctor as previously appointed. Coding Level of Care Code ED Upper Cutter Machine for Sarah Palomares
[2023-08-13 03:03] LABS: Basophils # 0.1 10^3/uL (0.0-0.1); Basophils % 1.1 %; Eosinophils % 0.3 %; Hematocrit 32.8 % (36-47); Lymphocytes # 1.7 10^3/uL (0.8-4.8); Lymphocytes % 25.3 %; Mean Corpuscular HGB Conc 29.9 g/dL (30-55); Mean Corpuscular Hemoglobin 23.6 pg (27-33); Mean Corpuscular Volume 78.8 fl (85-98); Mean Platelet Volume 10.8 fL (7.4-10.4); Monocytes # 0.8 10^3/uL (0.2-0.9); Monocytes % 12.8 %; Neutrophils # 3.93 10^3/uL (1.8-7.7); Nucleated Red Blood Cells # 0.1 /100WBC; Nucleated Red Blood Cells % 0.8 %; Platelet Count 320 10^3/cmm (157-399); Red Blood Count 4.16 10^6/uL (3.85-5.65); Red Cell Distribution Width 15.9 % (12.1-15.1); White Blood Count 6.55 10^3/uL (3.29-11.43)
[2023-08-13 03:34] LABS: Alanine Aminotransferase 244 U/L (0-33); Albumin Level 3.3 g/dL (3.5-5.2); Alkaline Phosphatase 75 U/L (35-105); Anion Gap 15.4 (5-19); Aspartate Amino Transferase 483 U/L (0-32); Blood Urea Nitrogen 10 mg/dL (6-20); Calcium 8.4 mg/dL (8.5-10.5); Carbon Dioxide 25 mmol/L (22-29); Chloride 98 mmol/L (98-107); Creatinine Clr Calc Pharmacy 66.3009; Globulin 3.9 g/dL (1.3-4.6); Glomerular Filtration Rate 85.6 mL/min (90-130); Glucose 79 mg/dL (65-115); NT Pro B Type Natriuretic Pept 7173 pg/mL (0-125); Osmolality Calculated 278 mOsm/kg (285-295); Potassium 3.4 mmol/L (3.5-5.1); Sodium 135 mmol/L (136-145); Total Bilirubin 1.2 mg/dL (0.15-1.2); Total Protein 7.2 g/dL (6.6-8.7)
--- NOTE | 2023-08-13 03:54 | CTR_ITS ---
PROCEDURE INFORMATION: Exam: CT Chest With Contrast; Diagnostic Exam date and time: 08/13/2023 4:11 AM Age: 57 years old Clinical indication: Abnormal findings; Abnormal lab test; Elevated liver enzymes; Other: N/a; Shortness of breath; Prior surgery; Surgery date: 6+ months; Surgery type: Aortic valve. Gb; Patient HX: SOB with hypoxia. Elevated lfts and bnp. ; Additional info: Chf, dyspnea, elevated lfts TECHNIQUE: Imaging protocol: Diagnostic computed tomography of the chest with contrast. Radiation optimization: All CT scans at this facility use at least one of these dose optimization techniques: automated exposure control; mA and/or kV adjustment per patient size (includes targeted exams where dose is matched to clinical indication); or iterative reconstruction. Contrast material: OMNI 350; Contrast volume: 80 ml; Contrast route: INTRAVENOUS (IV); COMPARISON: CR (CHEST, ) 08/13/2023 3:10 AM RADIATION DOSE METRICS: Total DLP (mGy-cm): 512.61 FINDINGS: Lungs: Mild degree of smooth septal thickening. Scattered ground-glass pulmonary opacities. Negative for endobronchial obstruction. Negative for pulmonary consolidation. Pleural spaces: Small volume bilateral pleural effusions. Heart: Multichamber cardiac dilation. Negative for pericardial effusion. Aortic valve replacement. Lymph nodes: Unremarkable. No enlarged lymph nodes. Vasculature: Thoracic aorta is nonaneurysmal. Negative for dissection. Bones/joints: Severe T6 compression fracture which is most likely nonacute. Greater than 90% height loss. Mild severity vertebral endplate concavities at T8 and T9. Soft tissues: Unremarkable. PROCEDURE INFORMATION: Exam: CT Abdomen And Pelvis With Contrast Exam date and time: 08/13/2023 4:11 AM Age: 57 years old Clinical indication: Abnormal findings; Abnormal lab test; Elevated liver enzymes; Other: N/a; Shortness of breath; Prior surgery; Surgery date: 6+ months; Surgery type: Aortic valve. Gb; Patient HX: SOB with hypoxia. Elevated lfts and bnp. ; Additional info: Chf, dyspnea, elevated lfts TECHNIQUE: Imaging protocol: Computed tomography of the abdomen and pelvis with contrast. Radiation optimization: All CT scans at this facility use at least one of these dose optimization techniques: automated exposure control; mA and/or kV adjustment per patient size (includes targeted exams where dose is matched to clinical indication); or iterative reconstruction. Contrast material: OMNI 350; Contrast volume: 80 ml; Contrast route: INTRAVENOUS (IV); COMPARISON: CT abdomen pelvis w con* [id number] 08/30/2020 5:39 PM RADIATION DOSE METRICS: Total DLP (mGy-cm): 512.61 FINDINGS: Liver: Normal. No mass. Gallbladder and bile ducts: Cholecystectomy. No ductal dilation. Pancreas: Normal. No ductal dilation. Spleen: Normal. No splenomegaly. Adrenal glands: Normal. No mass. Kidneys and ureters: Punctate nonobstructing bilateral kidney stones. Negative for hydronephrosis. Symmetric renal enhancement. Stomach and bowel: Unremarkable. No obstruction. No mucosal thickening. Appendix: No evidence of appendicitis. Intraperitoneal space: Minimal ascites. No free air. Vasculature: Unremarkable. No abdominal aortic aneurysm. Lymph nodes: Unremarkable. No enlarged lymph nodes. Urinary bladder: Unremarkable as visualized. Reproductive: Unremarkable as visualized. Bones/joints: Deformity of the medial right pubic bone consistent with old healed trauma. Severe T11 compression fracture is unchanged from remote comparison. Severe L1 compression fracture is unchanged from comparison. Previous L2 compression fracture demonstrates worsening height loss greater than 50% centrally. Mild to moderate severity L3 and L4 compression fractures are unchanged from remote comparison. Relatively severe compression fracture at L5 is new from comparison but otherwise of unknown chronicity. Grade 2 L5-S1 spondylolisthesis redemonstrated. Bilateral L5 pars defects redemonstrated. Soft tissues: Body wall anasarca. CT/CT chest abdpel w/*[id number] IMPRESSION: Intrathoracic fluid overload features consistent with congestive heart failure. IMPRESSION: 1. Negative for acute abdominopelvic pathology. 2. Negative for biliary obstruction.
[2023-08-13] MEDS: iohexol 350 mg/mL 500 mL Btl (per mL) IV (04:12)
[2023-08-13] MEDS: FUROsemide 10 mg/mL SDV 4mL 40 MG IVP (04:19)
== END 2023-08-13 06:00 | disposition home or self-care (01) ==
PROVIDERS: Emergency Provider Emergency Medicine; PCP Internal Medicine
DX: I50.9 Heart failure, unspecified (principal); R74.8 Abnormal levels of other serum enzymes; Z79.82 Long term (current) use of aspirin; M32.9 Systemic lupus erythematosus, unspecified
CPT/HCPCS: 36415; 71045; 71260; 74177; 80053; 83880; 85025; 96374; 99285; J1940; Q9967

== ENCOUNTER → 2023-08-17 15:00 | Outpatient (BNVA) | payer MEDICARE, SELFPAY | PROVIDERS: PCP Internal Medicine; Visit Provider Internal Medicine | DX: R07.9 Chest pain, unspecified (principal); I35.0 Nonrheumatic aortic (valve) stenosis; Z95.2 Presence of prosthetic heart valve; I45.2 Bifascicular block; I51.7 Cardiomegaly | CPT/HCPCS: 93005; 99204 ==

== ENCOUNTER 2023-08-23 05:33 | Outpatient (CLI) | payer MEDICARE, SELFPAY ==
[2023-08-23] VITALS (16 sets, daily range): BP systolic 105–132; BP diastolic 67–86; PULSE 76–88; RESP 14–30; TEMP 36.6; O2SAT 98; BMI 20.9
--- NOTE | 2023-08-23 06:00 | XACV_ITS ---
Exam Room: 2 Ht: 152 cm Wt: 48 kg BSA: 1.44 m2 Gender: Female : 1965 Any Known Allergies: Asprin Exam Priority: Routine Procedure(s): Procedure Description: Diagnostic procedure Procedure Description: Left Heart Catheterization Procedure Description: Right Heart Catheterization Procedure Description: O2 saturation Procedure Description: Coronary Angiography Diagnostic Cath Status: Elective Diagnostic Findings * INDICATION: Severe aortic stenosis. * Left main artery is patent. LAD has mid vessel mild to moderate luminal irregularities. LCx is patent. RCA is patent. * Right heart cath: Severely elevated right and left sided cardiac pressures. * Aortic valve gradients: Mean pressure gradient across aortic valve is 67 mmHg. Peak to peak gradient is 80mmmHg,. Conclusions 1. Left main artery is patent. LAD has mid vessel mild to moderate luminal irregularities. LCx is patent. RCA is patent. 2. Severe aortic valve stenosis( has a trifecta prosthetic valve). Recommendations * Had discussion with family. All options including inpatient transfer vs outpatient urgent referral and work up for possible valve in valve tavr. Patient and family want to go as outpatient. Already case discussed with structural team at [facility]. Plan for outpatient visit with them and CT scans within a week. ER warning signs and symptoms discussed in detail. We will uptitrate diuretic therapy. Diagnostic RX Recommendation: other cardiac therapy w/o CABG/PCI Pressures Phase:Rest AO : 89 / 68 ( 78 ) @ 9:45:00 AM 110 / 62 ( 81 ) @ 9:53:00 AM 112 / 65 ( 84 ) @ 9:53:00 AM LV : 192 / 9 / 35 @ 9:53:00 AM 192 / 9 / 34 @ 9:53:00 AM RV : 82 / 15 / 28 @ 9:41:00 AM PA : 83 / 45 ( 59 ) @ 9:40:00 AM RA : a wave = 28 v wave = 29 mean = 26 @ 9:42:00 AM O2 Content Phase:Rest PA : O2 Content O2: 37.0 @ 9:53:00 AM Saturations Phase:Rest AO : 87 @ 9:45:00 AM PA : 37 @ 9:53:00 AM Cardiac Output Phase:Rest Kevin : 2 @ 9:18:20 AM Kevin Cardiac Index: 2 @ 9:18:20 AM Flow Phase:Rest Qp : 2 @ 9:18:20 AM Qs : 2 @ 9:18:20 AM Valves Phase:DefaultPhase AV : 80.0 @ 9:18:20 AM 80.0 @ 9:18:20 AM AV Mean Gradient: 67.0 @ 9:18:20 AM 67.0 @ 9:18:20 AM AV Flow: 84 @ 9:18:20 AM AV Area: 0.2 @ 9:18:20 AM AV Area Index: 0.16 @ 9:18:20 AM Clinical Evaluation EBL: 5mL-10mL Procedural Details Pre-Procedure Time Out. Identified patient by full name and date of as verbalized by the patient/guarantor. Does the consent match the physician's order: Yes. Accurate & Complete Informed Consent: Yes. Inpatient/Outpatient History & Physical on Chart: Yes. If H&P is completed, is and addenduem needed: No; If yes, is the addendum complete: N/A. Visualize and Verify Site with Patient/Guarantor: N/A. Relevant Radiology Images available: Yes. Pre-op teaching completed and patient verbalized understanding. Procedure started. [facility] Clinical Fraility Score: 6: Moderately Frail. Sourcing Coordinator Indications: Other. Chest Pain Symptom Assessment: Non-anginal Chest Pain. Correct patient, site and procedure confirmed by cath team. PERRLA. Strong, equal hand prepared foods supervisor bilaterally. Lungs clear x 5 lobes. IV Site on Arrival: 20 gauge in the right anticubital. IV Site on Arrival: 20 gauge in the left anticubital. IV Fluids: 0.9% NaCl at KVO. 0 mL infused prior to construction or leak gang laborer. Pre Procedural Pulses: bilateral dorsalis pedis was Absent. Pre Procedural Pulses: bilateral posterior tibial was Doppled. Pre Procedural Pulses: bilateral radial was 1+. bilateral groins was prepped with chloroprep then draped in the usual sterile fashion. right brachial was prepped with chloroprep then draped in the usual sterile fashion. Physician notified. Physician arrived. Baseline sample Acquired. HR: 86 BPM. Physician scrubbed in. Immediate Pre-Procedure Time Out. Correct Patient: Yes; Correct Procedure: Yes; Correct Site: Yes; Correct Patient Position: Yes; Correct Supplies: Yes; Dried Flammable Prep: Yes; Blood Products Available: N/A;. Sheath wire inserted through the right brachial IV catheter. IV catheter out OTW. Wire unable to advance. Wire out and pressure held on brachial site until hemostasis achieved. Lidocaine 1% infiltrated to the right groin. Ultrasound being used to obtain access. Arterial access obtained with micropuncture set. Venous access obtained with a micropuncture set. Wire unable to advance. Wire and needle out. Ultrasound being used to obtain access. Venous access obtained with a micropuncture set. [place] MON catheter inserted. 0.025 wire inserted through the catheter. Oximetry samples were obtained. Normal venous range: 60-85%. Normal arterial range: 95-100%. Pressure measurements obtained. ABG drawn and sent with respiratory therapy. [place] out. Oxygen started at 2liters/min via nasal canula. A 5 norwegian JL4 catheter in over wire. Multiple views taken of left coronary artery. Catheter removed over the standard wire. A 5 norwegian JR4 catheter in over wire. Multiple views taken of right coronary artery. Glidewire inserted through the catheter. Wire out. EDP Sample taken: LV 192/9,35; HR: 80 BPM; SpO2: Off%. Pullback taken: LV 192/9,34; AO 110/62(81); Mean: 67mmHg, Peak to Peak: 80mmHg, SEP: 26sec/min; HR: 79 BPM; SpO2: Off%. Catheter removed over the standard wire. A Right femoral angiogram was performed to determine safe placement of closure device. A Mynx was successful obtaining hemostatsis at the Right Femoral artery insertion site. Total IV fluids: 35 mL. Medication's Wasted: Lidocaine 1% = 10 mL. Medication's Wasted: Heparin = 1000 units. Medication's Wasted: Other = Fentanyl 75 mcg. Medication's Wasted: Nitro = 50 mcg. A Manual Compression was successful obtaining hemostatsis at the Right Femoral vein insertion site. Post Procedure: Pulses reassessed and unchanged. No VTE prophylaxis required. Complications: None. Estimated blood loss: 5mL-10mL. Responsiveness - Normal response to verbal stimuli; alert and oriented, PERRLA. Airway - Unaffected, no intervention required; spontaneous ventilation. Circulation: W/N/L, pulses unchanged. Nausea/Vomiting: No. Procedure completed. Patient transferred by bed to 1st floor. Vital chart was stopped. Access Site Site: Right Femoral artery Sheath Size: 6 Fr Hemostasis Method: Mynx Hemostasis Success: Successful Site: Right Femoral vein Sheath Size: 6 Fr Hemostasis Method: Manual Compression Hemostasis Success: Successful Procedure Medications Start: 8:12 AM Stop: 8:12 AM Medication: Versed Amount: 1 mg Route: I.V. Start: 8:13 AM Stop: 8:13 AM Medication: Fentanyl Amount: 25 mcg Route: I.V. Start: 8:31 AM Stop: 8:31 AM Medication: Versed Amount: 1 mg Route: I.V. I, the attending physician, have reviewed and verified all procedure medications. Yes, all medications given per verbal order History/Risk Factors Hypertension: No Dyslipidemia: No Peripheral Arterial Disease (PAD): No Myocardial Infarction (MO): No Obesity: No Renal Disease: No Tobacco Use: Never Prior Interventions PCI: No CABG: No Valve Surgery: No Report Signatures Finalized by Elvin Manning MD on 08/25/2023 09:26 PM
[2023-08-23] MEDS: diphenhydrAMINE 50 mg Capsule PO (06:05)
[2023-08-23] MEDS: aspirin 325 mg Tablet PO (06:05)
--- NOTE | 2023-08-23 08:07 | W.PM.OPSUD ---
Surgery/Procedure H&P Update DATE OF PROCEDURE: August 23, 2023 DATE H&P PERFORMED: 08/17/23 H&P UPDATE INFORMATION: I have reviewed H&P completed within last 30 days, I have examined patient prior to procedure and No changes to prior documentation PREOP DIAGNOSIS: Severe aortic stenosis of bioprosthetic aortic valve PRIMARY INDICATION FOR PROCEDURE: Severe aortic stenosis of bioprosthetic aortic valve PLANNED PROCEDURE: Operation Date: 08/23/23 07:00 Proposed Procedures p Cardiac Catheterization 81459, I35.0(Bilateral) - Elvin Manning M.D PATIENT REASSESSED PRIOR TO SEDATION, WITH NO CHANGE NOTED: Yes PHYSICAL EXAM: alert, oriented x 3, clear to auscultation bilaterally and regular rate & rhythm AIRWAY EVAL/ANESTHESIA PLAN: normal airway, ASA III, Local Anesthesia, Risks, benefits & alternatives of sedation and/or procedure discussed and Patient agrees to continue as planned ADDITIONAL INFORMATION: Moderate sedation
[2023-08-23 09:07] LABS: Arterial Blood Gas Hematocrit 27.1 % (37-47); Blood Gas Operator Identificat GD; Blood Gas Sample Site Not specified; Blood Gas Sample Type Not specified; Carboxyhemoglobin 1.5 %THgb (0.4-20.1); HGB O2 Sat 36.3 % (95-100); Methemoglobin 0.5 % (0.4-1.5); Total Hemoglobin 8.9 g/dL (12-16)
[2023-08-23 09:10] LABS: Blood Gas Operator Identificat GD; Blood Gas Sample Site Not specified; Blood Gas Sample Type Not specified; Carboxyhemoglobin 1.9 %THgb (0.4-20.1); HGB O2 Sat 85.3 % (95-100); Methemoglobin 0.5 % (0.4-1.5); Total Hemoglobin 7.2 g/dL (12-16)
[2023-08-23 09:11] LABS: Oxygen Device RA
[2023-08-23 09:12] LABS: Oxygen Device RA
--- NOTE | 2023-08-23 18:53 | PC.NURSE ---
Discharge Note Patient discharged to [home] via [w/c to POV] accompanied by [her spouse]. Discharge instructions reviewed with patient and/or promotional representative. Mobile pharmacy medications and/or prescriptions provided. Belongings/home medications returned.
== END 2023-08-23 18:56 | disposition home or self-care (01) ==
LOC: CCL 05:44 → CSU 09:51
PROVIDERS: PCP Internal Medicine; Visit Provider Internal Medicine
DX: I35.0 Nonrheumatic aortic (valve) stenosis (principal); Z95.2 Presence of prosthetic heart valve; R60.0 Localized edema; Z79.82 Long term (current) use of aspirin; M81.0 Age-related osteoporosis without current pathological fracture
CPT/HCPCS: 36415; 82810; 93460; 96374; 96375; 99152; 99153; C1751; C1760; C1769; C1887; C1894; G0269; J1644; J2250; J3010; J3490; J7030; Q0163; Q9967

== ENCOUNTER 2023-08-24 18:55 | Observation (INO) | payer MEDICARE, SELFPAY ==
[2023-08-24 19:06] VITALS: BP 93/70; PULSE 108; RESP 18; TEMP 36.6; O2SAT 97; BMI 22.4
[2023-08-24 19:09] VITALS: BP 145/91; PULSE 76; RESP 22; O2SAT 91
[2023-08-24 19:52] LABS: Basophils % 0.1 %; Hematocrit 31.2 % (36-47); Lymphocytes % 10.7 %; Mean Corpuscular HGB Conc 30.1 g/dL (30-55); Mean Corpuscular Hemoglobin 22.7 pg (27-33); Mean Corpuscular Volume 75.2 fl (85-98); Mean Platelet Volume 10.8 fL (7.4-10.4); Monocytes % 10.5 %; Neutrophils # 7.41 10^3/uL (1.8-7.7); Neutrophils % 78.2 %; Nucleated Red Blood Cells # 0.3 /100WBC; Nucleated Red Blood Cells % 3.3 %; Platelet Count 263 10^3/cmm (157-399); Red Blood Count 4.15 10^6/uL (3.85-5.65); Red Cell Distribution Width 16.5 % (12.1-15.1); White Blood Count 9.49 10^3/uL (3.29-11.43)
[2023-08-24 20:11] LABS: Troponin(5th) Baseline 86 ng/L (0-10)
[2023-08-24 20:23] LABS: Alanine Aminotransferase 396 U/L (0-33); Albumin Level 3.7 g/dL (3.5-5.2); Alkaline Phosphatase 126 U/L (35-105); Aspartate Amino Transferase 466 U/L (0-32); Blood Urea Nitrogen 36 mg/dL (6-20); Calcium 8.9 mg/dL (8.5-10.5); Carbon Dioxide 23 mmol/L (22-29); Chloride 89 mmol/L (98-107); Creatinine Clr Calc Pharmacy 42.1915; Globulin 3.5 g/dL (1.3-4.6); Glomerular Filtration Rate 50.8 mL/min (90-130); Glucose 92 mg/dL (65-115); NT Pro B Type Natriuretic Pept 14214 pg/mL (0-125); Osmolality Calculated 272 mOsm/kg (285-295); Sodium 127 mmol/L (136-145); Total Bilirubin 2.6 mg/dL (0.15-1.2); Total Protein 7.2 g/dL (6.6-8.7)
--- NOTE | 2023-08-24 20:27 | XRR_ITS ---
PROCEDURE INFORMATION: Exam: XR Chest Exam date and time: 08/24/2023 8:35 PM Age: 57 years old Clinical indication: Shortness of breath; Additional info: SOB TECHNIQUE: Imaging protocol: Radiologic exam of the chest. Views: 1 view. COMPARISON: CR (CHEST, ) 08/24/2023 8:01 PM FINDINGS: Lungs: Hazy opacities in the right lung base compatible with atelectasis versus developing infection in the proper clinical setting. Pleural spaces: No evidence of pneumothorax. Small right-sided pleural effusion. Heart/Mediastinum: Postsurgical changes of the mediastinum compatible with prior CABG. Cardiomediastinal silhouette is otherwise within normal limits. Bones/joints: No evidence of acute osseous abnormality. XR/XR chest 1V portable [id number] IMPRESSION: 1. Small right-sided pleural effusion. 2. Hazy opacities in the right lung base compatible with atelectasis versus developing infection in the proper clinical setting.
[2023-08-24 20:32] LABS: D Dimer 8.79 ug/mLFEU (0-0.59)
--- NOTE | 2023-08-24 20:54 | CTR_ITS ---
PROCEDURE INFORMATION: Exam: CT Chest Without Contrast; Diagnostic Exam date and time: 08/24/2023 9:02 PM Age: 57 years old Clinical indication: Shortness of breath; Additional info: SOB TECHNIQUE: Imaging protocol: Diagnostic computed tomography of the chest without contrast. Radiation optimization: All CT scans at this facility use at least one of these dose optimization techniques: automated exposure control; mA and/or kV adjustment per patient size (includes targeted exams where dose is matched to clinical indication); or iterative reconstruction. COMPARISON: CT chest abdpel w/*[id number] 08/13/2023 4:11 AM RADIATION DOSE METRICS: Total DLP (mGy-cm): 252.9 FINDINGS: Lungs: Moderate pulmonary edema with small bilateral pleural effusions. No focal consolidation. No pneumothorax. No convincing evidence of pneumonia. Heart: No cardiomegaly. No pericardial effusion. There are dense mitral annular calcifications. Coronary arteries: There are incidental coronary artery calcifications. Mediastinal space: Trachea and airway are grossly patent. Postsurgical changes of the mediastinum compatible with prior CABG, aortic valve replacement and root repair. There is fluid within the esophagus and mild esophageal wall thickening, possibly sequela of chronic esophagitis. Lymph nodes: Multiple enlarged mediastinal nodes, possibly secondary to lymphovascular congestion. Vasculature: No evidence of aneurysmal dilatation of the thoracic aorta. Evaluation for acute vascular injury or thrombosis is limited by lack of IV contrast. Bones/joints: No evidence of acute fracture or aggressive osseous lesion. Chronic T6 and T11 vertebral body compression fractures with vertebral plana. Additional compression fractures of L1, L2 and L3 with moderate-severe height loss. Soft tissues: No evidence of fluid collection or hematoma in the superficial soft tissues. Other findings: Small free fluid in the upper abdomen. There are persistent renal nephrograms suggesting acute kidney injury. CT/CT chest wo con [id number] IMPRESSION: 1. Moderate pulmonary edema and small bilateral pleural effusions. 2. Postsurgical changes of the mediastinum compatible with prior CABG, aortic valve replacement and root repair. 3. Wall thickening of the distal esophagus, possibly sequela of chronic esophagitis. Consider follow-up outpatient GI evaluation to exclude an underlying mucosal lesion. 4. Suspected acute kidney injury.
[2023-08-24 21:09] VITALS: BP 115/77; PULSE 86; RESP 19; O2SAT 93
--- NOTE | 2023-08-24 21:10 | ECG_ITS ---
[facility] Test Date: 2023-08-24 Pat Name: Sari Bain Department: Room: Gender: Female Lathe Set Up Person: : 1965 Requested By: Adrian Brumfield Order Number: [id number] Derek MD: Elvin Manning M.D. Measurements Intervals [place] Rate: 84 P: 0 UT: 138 QRS: -52 QRSD: 173 T: 76 QT: 425 QTc: 505 Interpretive Statements SINUS RHYTHM RIGHT BUNDLE BRANCH BLOCK [120+ ms QRS DURATION, UPRIGHT V1, 40+ ms S IN I/aVL/V4/V5/V6] LEFT ANTERIOR FASCICULAR BLOCK [QRS AXIS <= -45, QR IN I, RS IN II] LEFT VENTRICULAR HYPERTROPHY AND ST-T CHANGE [VOLTAGE CRITERIA PLUS ST/T ABNORMALITY] Compared to ECG 08/17/2023 15:09:16 No significant changes Electronically Signed On 08-25-2023 0:41:10 CDT by Elvin Manning M.D. [email or web address]
--- NOTE | 2023-08-24 21:24 | W.ED.WEAKNES ---
HPI - Weakness General: Chief complaint: Weakness Stated complaint: SOB Time Seen by Provider: 08/24/23 20:25 History of Present Illness: 57-year-old female with a history of lupus, Raynaud's, and recently diagnosed aortic stenosis who presents the emergency room with generalized weakness. Apparently yesterday she had a cardiac cath done to evaluate her aortic valve. They states she is supposed to be going to [place] for replacement sometime in the near future. She has been generally weak recently. This is worsened today. Family states she can barely get up. No known fevers. No focal motor deficits. No altered mental status. She has no swelling in her legs. She says she is more short of breath than usual. Review of Systems Narrative: Constitutional symptoms: Negative except as documented in HPI. Skin symptoms: Negative except as documented in HPI. Eye symptoms: Negative except as documented in HPI. ENMT symptoms: Negative except as documented in HPI. Respiratory symptoms: Negative except as documented in HPI. Cardiovascular symptoms: Negative except as documented in HPI. Gastrointestinal symptoms: Negative except as documented in HPI. Genitourinary symptoms: Negative except as documented in HPI. Musculoskeletal symptoms: Negative except as documented in HPI. Neurologic symptoms: Negative except as documented in HPI. Psychiatric symptoms: Negative except as documented in HPI. Endocrine symptoms: Negative except as documented in HPI. [facility] ED PFSH: Medical History (Updated 08/24/23 @ 23:36 by Teofilo Valdez MD) Aortic stenosis High risk medication use Immunization counseling Immunosuppression Medication monitoring encounter H/O hypokalemia Right foot ulcer Cataract Osteoporosis Peripheral neuropathy Vitamin D deficiency, unspecified Raynaud's syndrome without gangrene Systemic lupus erythematosus (SLE) in adult Surgical History H/O esophagogastroduodenoscopy (12/30/19) with dilation H/O colonoscopy 2016 H/O esophagogastroduodenoscopy 2014 History of cholecystectomy H/O thyroidectomy S/P AVR (aortic valve replacement) Amputation of toe Family History Other CAD (coronary artery disease) Diabetes Hypertension Stroke Denies family history of Rheumatoid arthritis Chronic kidney disease (CKD) Systemic lupus erythematosus (SLE) in adult Cancer Social History Smoking and tobacco/nicotine status: never used tobacco/nicotine Alcohol intake: current Alcohol intake frequency: holidays/special occasions only Substance/Drug Use: never Lives independently: No Household members: spouse Marital status: Current occupational status: disabled Physical Exam Narrative: EXAM NARRATIVE: General: Alert, no acute distress. Skin: Warm, dry. Head: Normocephalic, atraumatic. Neck: Supple, trachea midline. Eye: Extraocular movements are intact. Ears, nose, mouth and throat: Dry oral mucosa Cardiovascular: Regular tachycardic,, Normal peripheral perfusion. Respiratory: Coarse, diminished posteriorly, respirations are non-labored, breath sounds are equal, Symmetrical chest wall expansion. Gastrointestinal: Soft, Nontender, Non distended, Normal bowel sounds. Musculoskeletal: Normal ROM, no deformity. Neurological: Alert and oriented, No focal neurological deficit observed. Psychiatric: Cooperative, patient appears a bit listless.. Course Vital Signs: Vital signs: Vital Signs Temperature 98 F 08/24/23 19:06 Pulse Rate 86 08/24/23 21:30 Respiratory Rate 20 H 08/24/23 21:30 Blood Pressure 115/77 08/24/23 21:30 Pulse Oximetry 93 08/24/23 21:09 Oxygen Delivery Me thod Room Air 08/24/23 21:09 MDM - Weakness Medical Decision Making Medical decision making: Differential diagnosis for patient presenting with generalized weakness including but not limited to and based on the above HPI, review of systems and physical exam: Sepsis. Dehydration. Renal failure. Electrolyte abnormalities. Anemia. Congestive heart failure. Hypotension. Coronary syndrome. Hepatitis. Cirrhosis. Infections such as pneumonia, urinary tract infection, [place] bourne illness, Cellulitis, Viral infections including influenza and Covid-19. Workup: labwork and lab/exam driven imaging ordered to evaluate, rule in and rule out above pathologies. Chest x-ray: Bilateral effusions this was reviewed and interpreted by myself the ER physician. CT of the chest without contrast: Bilateral effusions. Pulmonary edema. Esophageal wall thickening this was read by radiologist on-call Lab Review: Laboratory results were reviewed and interpreted by myself the emergency room physician. White count is 9. Hemoglobin is 9.4. BUN and creatinine are 36 and 1.1 which is up from her normal of 11 and 0.6. Liver enzymes are elevated and were a few days back. Prior to that they had not been. Ultrasound of the abdomen: Cirrhotic changes and a cholecystectomy are present. No other findings. This was reviewed by the radiologist on-call. I reviewed these results. I reviewed the patient's medical record. Prolonged emergency room stay: Patient did not get back to the room till about the 2-hour neetu of their emergency room stay. At that time CT was ordered. CT results were reported at just under 3 hours. There was time I spoke to hospitalist about admission. They requested an ultrasound of the abdomen be ordered and read prior to the patient being admitted. Upon receiving ultrasound of the abdomen results I talked again with the hospitalist and the patient was admitted at that time. Reexamination: Patient remains fairly stable. Still with mild increased work of breathing. Blood pressure is marginal. Heart rate has come down from 108 to the 80s. No focal motor deficits. No altered mental status. Quite a difficult case. She has pulmonary edema and effusions. However has acute renal failure. She appears dry on exam. She also now has cirrhosis on imaging which would be worrisome for fluid overload as well. I am holding on any interventions at this time Assessment and plan: Weakness Pleural effusions Renal insufficiency Transaminitis -I discussed the patient with the hospitalist on-call who is admitting the patient. - Discussed findings and plan with patient. Answered any questions. - All laboratory values were reviewed and interpreted personally by myself, the ER physician - All imaging was reviewed and interpreted personally by myself, the ER physician. - Evaluation and treatment of this problem were appropriate in the emergency setting Lab Data 08/24/23 19:42 08/24/23 19:42 Radiology Impressions Chest X-Ray 08/24/23 20:27 IMPRESSION: 1. Small right-sided pleural effusion. 2. Hazy opacities in the right lung base compatible with atelectasis versus developing infection in the proper clinical setting. Chest CT 08/24/23 20:54 IMPRESSION: 1. Moderate pulmonary edema and small bilateral pleural effusions. 2. Postsurgical changes of the mediastinum compatible with prior CABG, aortic valve replacement and root repair. 3. Wall thickening of the distal esophagus, possibly sequela of chronic esophagitis. Consider follow-up outpatient GI evaluation to exclude an underlying mucosal lesion. 4. Suspected acute kidney injury. Abdomen Ultrasound 08/24/23 21:55 IMPRESSION: 1. Hepatic cirrhosis with small-moderate ascites. 2. Status post cholecystectomy. Laboratory Results WBC 9.49 10^3/uL (3.29-11.43) 08/24/23 19:42 RBC 4.15 10^6/uL (3.85-5.65) 08/24/23 19:42 Hgb 9.40 g/dL (11.27-16.99) L 08/24/23 19:42 Hct 31.2 % (36-47) L 08/24/23 19:42 MCV 75.2 fl (85-98) L 08/24/23 19:42 MCH 22.7 pg (27-33) L 08/24/23 19:42 MCHC 30.1 g/dL (30-55) 08/24/23 19:42 RDW 16.5 % (12.1-15.1) H 08/24/23 19:42 Plt Count 263 10^3/cmm (157-399) 08/24/23 19:42 MPV 10.8 fL (7.4-10.4) H 08/24/23 19:42 Neut % (Auto) 78.2 % 08/24/23 19:42 Lymph % (Auto) 10.7 % 08/24/23 19:42 [place] % (Auto) 10.5 % 08/24/23 19:42 Eos % (Auto) 0.0 % 08/24/23 19:42 Baso % (Auto) 0.1 % 08/24/23 19:42 Neut # (Auto) 7.41 10^3/uL (1.8-7.7) 08/24/23 19:42 Lymph # (Auto) 1.0 10^3/uL (0.8-4.8) 08/24/23 19:42 [place] # (Auto) 1.0 10^3/uL (0.2-0.9) H 08/24/23 19:42 Eos # (Auto) 0.0 10^3/uL (0.0-0.8) 08/24/23 19:42 Baso # (Auto) 0.0 10^3/uL (0.0-0.1) 08/24/23 19:42 Nucleated RBC % (auto) 3.3 % 08/24/23 19:42 Nucleated RBCs # 0.3 /100WBC 08/24/23 19:42 D-Dimer 8.79 ug/mLFEU (0-0.59) H 08/24/23 19:42 Sodium 127 mmol/L (136-145) L 08/24/23 19:42 Potassium 4.0 mmol/L (3.5-5.1) 08/24/23 19:42 Chloride 89 mmol/L (98-107) L 08/24/23 19:42 Carbon Dioxide 23 mmol/L (22-29) 08/24/23 19:42 Anion Gap 19.0 (5-19) 08/24/23 19:42 BUN 36 mg/dL (6-20) H 08/24/23 19:42 Creatinine 1.1 mg/dL (0.5-0.9) H 08/24/23 19:42 GFR Calculation 50.8 mL/min (90-130) L 08/24/23 19:42 Glucose 92 mg/dL (65-115) 08/24/23 19:42 Calculated Osmolality 272 mOsm/kg (285-295) L 08/24/23 19:42 Calcium 8.9 mg/dL (8.5-10.5) 08/24/23 19:42 Total Bilirubin 2.6 mg/dL (0.15-1.2) H 08/24/23 19:42 AST 466 U/L (0-32) H 08/24/23 19:42 ALT 396 U/L (0-33) H 08/24/23 19:42 Alkaline Phosphatase 126 U/L (35-105) H 08/24/23 19:42 Troponin T Baseline 86 ng/L (0-10) H 08/24/23 19:42 NT-Pro-B Natriuret Pep 89423 pg/mL (0-125) H 08/24/23 19:42 Total Protein 7.2 g/dL (6.6-8.7) 08/24/23 19:42 Albumin 3.7 g/dL (3.5-5.2) 08/24/23 19:42 Globulin 3.5 g/dL (1.3-4.6) 08/24/23 19:42 Procalcitonin 0.37 ng/mL (0-0.5) 08/24/23 19:42 All radiology interpretation(s) finalized by discharge Discharge Plan Discharge Patient Disposition: Placed in Observation Admit Provider: Teofilo Valdez Clinical Impression: Weakness, Aortic stenosis, Renal failure, Transaminitis, Pleural effusion, bilateral Coding Level of Care Code ED Improvement Advisor for Sarah Palomares
[2023-08-24 21:30] VITALS: BP 115/77; PULSE 86; RESP 20
--- NOTE | 2023-08-24 21:55 | USR_ITS ---
PROCEDURE INFORMATION: Exam: US Abdomen Complete Exam date and time: 08/24/2023 10:13 PM Age: 57 years old Clinical indication: Other: Elevated lfts; Prior surgery; Surgery date: 6+ months; Surgery type: 1995 cholecystectomy; Additional info: Renal failure, liver enzymes up. TECHNIQUE: Imaging protocol: Real-time ultrasound of the abdomen with image documentation. Complete exam. COMPARISON: CT chest abdpel w/*[id number] 08/13/2023 4:11 AM FINDINGS: Liver: Hepatic cirrhosis with small-moderate ascites. Gallbladder: Status post cholecystectomy. Biliary ducts: No evidence of intrahepatic or extrahepatic biliary dilatation. CBD measures 3 mm. Pancreas: The pancreas is partially obscured by bowel gas. Visualized portions are unremarkable. Right kidney: The right kidney is normal in echotexture and measures 9.4 cm in length. No hydronephrosis. Left kidney: The left kidney is normal in echotexture and measures 9.0 cm in length. No hydronephrosis. Nonobstructive 4 mm left lower pole renal stone. Spleen: Sonographically unremarkable. The spleen measures 7.5 cm in length. Aorta: The visualized aorta is grossly unremarkable. Inferior vena cava: Patent. US/US abdomen complete* [id number] IMPRESSION: 1. Hepatic cirrhosis with small-moderate ascites. 2. Status post cholecystectomy.
--- NOTE | 2023-08-24 21:55 | P.HP_ITS ---
Providers/Chief Complaint 2 Primary Care Provider: Emily Vitale MD Chief Complaint: SOB History of Present Illness Sari Bain is a 57 year old female with a past medical history significant for bioprosthetic aortic valve replacement (2019) complicated by the development of severe aortic stenosis, systemic lupus erythematosus, Raynaud's syndrome, osteoporosis, peripheral neuropathy, hypothyroidism, GERD, pulmonary hypertension, and cataracts who presents to the emergency department with shortness of breath and diffuse weakness. Patient reports symptoms have been progressing for several weeks but worse in the last 1 to 2 days. Reports exertion worsens symptoms. Rest improves. Endorses associated nonproductive cough. Denies fevers or chills. Of note, patient recently establish care with cardiology clinic. Most recent transthoracic echocardiogram on May 18, 2023 revealed moderate concentric LVH, LVEF 55%, grade 3/4 diastolic dysfunction, severely elevated filling pressures, severe aortic valve stenosis and evidence of moderate pulmonary hypertension. She reportedly underwent left and right heart cath on 08/23/[address] Manning. Heart cath report is currently pending. Family reports they were told there are no blockages on yesterday's cath. Review of Systems 2 Narrative: A complete review of systems was obtained and is negative except as stated in HPI. Medications/Allergies Home Medications Medication Instructions Recorded Confirmed Last Taken Type citalopram 40 mg tablet 40 mg PO DAILY 04/30/19 08/25/23 2 Days Ago History ~08/23/23 multivitamin 1 tab PO DAILY 04/30/19 08/25/23 1 Day Ago History ~08/24/23 aspirin 81 mg tablet,delayed 81 mg PO DAILY #90 tabs 03/16/20 08/25/23 1 Day Ago Rx release ~08/24/23 1 tab PO DAILY 08/30/20 08/25/23 08/22/23 History levothyroxine 112 mcg tablet 112 mcg PO DAILY 08/30/20 08/25/23 1 Day Ago History ~08/24/23 cholecalciferol (vitamin D3) 50 50 mcg PO DAILY #90 caps 06/30/22 08/25/23 08/22/23 Rx mcg (2,000 unit) capsule alendronate 70 mg tablet 70 mg PO Q7D #15 tabs 02/22/23 08/25/23 08/21/23 Rx prednisone 2.5 mg tablet See Rx Instructions .Route 01/03/24 06/07/24 1 Day Ago Rx .COMPLEX #90 tabs ~08/24/23 hydroxychloroquine 200 mg tablet See Rx Instructions .Route 05/15/23 08/25/23 1 Day Ago Rx .COMPLEX #135 tabs ~08/24/23 furosemide 40 mg tablet 20 mg (1/2 x 40 mg) PO BID #120 08/23/23 08/25/23 1 Day Ago Rx tabs ~08/24/23 potassium chloride 20 mEq 20 meq PO DAILY #60 tabs 08/23/23 08/25/23 1 Day Ago Rx tablet,extended ~08/24/23 release(part/cryst) (Klor-Con M) gabapentin 300 mg capsule 300 PO TID 08/25/23 1 Day Ago History ~08/24/23 Allergies Allergy/AdvReac Type Severity Reaction Status Date / Time cephalexin Allergy Intermediate ITCHING,HEA Verified 08/23/23 06:50 DACHE codeine Allergy Intermediate ITCHING Verified 08/23/23 06:50 PFSH Acute 2 PFSH: Medical History (Updated 08/24/23 @ 23:36 by Teofilo Valdez MD) Aortic stenosis High risk medication use Immunization counseling Immunosuppression Medication monitoring encounter H/O hypokalemia Right foot ulcer Cataract Osteoporosis Peripheral neuropathy Vitamin D deficiency, unspecified Raynaud's syndrome without gangrene Systemic lupus erythematosus (SLE) in adult Surgical History H/O esophagogastroduodenoscopy (12/30/19) with dilation H/O colonoscopy 2016 H/O esophagogastroduodenoscopy 2014 History of cholecystectomy H/O thyroidectomy S/P AVR (aortic valve replacement) Amputation of toe Family History Other CAD (coronary artery disease) Diabetes Hypertension Stroke Denies family history of Rheumatoid arthritis Chronic kidney disease (CKD) Systemic lupus erythematosus (SLE) in adult Cancer Social History Smoking and tobacco/nicotine status: never used tobacco/nicotine Alcohol intake: current Alcohol intake frequency: holidays/special occasions only Substance/Drug Use: never Lives independently: No Household members: spouse Marital status: Current occupational status: disabled Vitals/I&O/Wt Last Vital Signs Temp 98 F 08/24/23 19:06 Pulse 86 08/24/23 21:30 Resp 20 H 08/24/23 21:30 BP 115/77 08/24/23 21:30 Pulse Ox 93 08/24/23 21:09 O2 Del Method Room Air 08/24/23 21:09 Weight last 48 hrs Weight 48.534 kg Physical Exam 2 Narrative: General: Patient is awake. Appears fatigued. Head: Normocephalic. Atraumatic. EOM intact. Neck: No JVD. Cardiovascular: 1+ pitting edema bilateral lower extremities. Loud 4+ systolic ejection murmur. Lungs: Breath sounds are diminished. Faint crackles. No wheezing. On room air. Skin: No jaundice. No rashes. Abdomen: Normal bowel sounds, abdomen soft and nontender. Genito Urinary: Genital exam not performed since complaints not related. Rectal: Rectal exam not performed since no symptoms indicated blood loss. Extremities: No cyanosis or clubbing. Musculoskeletal: No swollen or erythematous joints. Neurological: Moves all 4 extremities. No myoclonus. Data 08/24/23 19:42 08/24/23 19:42 A&P Assessment and plan (1) Aortic stenosis: History of prosthetic aortic valve replacement in 2019 Recent echo showing severe aortic stenosis valve Recently underwent cardiac catheterization, heart cath report is pending Recent echo reviewed Monitor fluid status daily Consider cardiology consultation (2) Acute kidney injury: Acute kidney injury with admission BUN 36, creatinine 1.1 Previous renal function showed BUN 10, creatinine 0.7 on 08/13/23 Associated with hyponatremia, hypochloremia Suspect cardiorenal physiology; contrast-induced nephropathy within differential although somewhat early for this Start with IV diuresis x 1 dose and monitor response Follow-up urine electrolytes including urine sodium level Strict I's and O's Daily weights Dose Lasix daily (3) Transaminitis: Transaminitis associated with hyperbilirubinemia Etiology unclear, leading differential includes congestive hepatopathy, DILI Liver function enzymes were elevated on 08/13/23 with AST 483, ALT 244, alk phos 75 On admission, AST 466, ALT 396, alk phos 126 CT abdomen/pelvis (08/13/23) was neg for acute abdominopelvic pathology and negative for biliary obstruction US abdomen (08/24/23) revealed hepatic cirrhosis with small to moderate ascites; s/p cholecystectomy Patient denies significant changes to her medications other than adjustments to Lasix yesterday Trend liver function enzymes Avoid hepatotoxins (4) Peripheral neuropathy: Continue home gabapentin (5) Systemic lupus erythematosus (SLE) in adult: Follows with rheumatology clinic Continue home Plaquenil Continue home prednisone (6) Hypothyroidism: Continue home Synthroid Check TSH (7) Osteoporosis: Resume outpatient bisphosphonate after discharge Plan DVT prophylaxis: Heparin CODE STATUS: Full code Attestations 2 Medical Necessity Statement*: Patient presents with shortness of breath, found to have acute pulmonary edema in the setting of severe aortic stenosis, acute kidney injury, transaminitis, multiple other metabolic derangements with expected hospitalization not to cross 2 midnights for IV diuresis, trending of labs, and consideration of cardiology consultation. Coding Level of Care Code Acute Code for Chg Fwd Diagnoses Aortic stenosis I35.0 Acute kidney injury N17.9 Transaminitis R74.01 Peripheral neuropathy G62.9 Systemic lupus erythematosus (SLE) in adult M32.9 Hypothyroidism E03.9 Osteoporosis M81.0
[2023-08-24 23:55] VITALS: PULSE 89
[2023-08-24 23:56] VITALS: BMI 22.9
[2023-08-25] VITALS (7 sets, daily range): BP systolic 99–127; BP diastolic 70–84; PULSE 90–95; RESP 15–22; TEMP 36.4–36.7; O2SAT 94–98
[2023-08-25 00:02] LABS: Procalcitonin 0.37 ng/mL (0-0.5); Thyroid Stimulating Hormone 35.55 uIU/mL (0.27-4.20)
[2023-08-25 00:13] LABS: C Reactive Protein 36.5 mg/L (0.0-4.9)
[2023-08-25 00:22] LABS: Creatine Phosphokinase 216 U/L (26-192)
--- NOTE | 2023-08-25 01:10 | ECG_ITS ---
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 Measurements Intervals [place] Rate: 87 P: 0 OK: 138 QRS: -49 QRSD: 169 T: 72 QT: 423 QTc: 510 Interpretive Statements SINUS RHYTHM POSSIBLE LEFT ATRIAL ENLARGEMENT [-0.1mV P-WAVE IN V1/V2] RIGHT BUNDLE BRANCH BLOCK [120+ ms QRS DURATION, UPRIGHT V1, 40+ ms S IN I/aVL/V4/V5/V6] LEFT ANTERIOR FASCICULAR BLOCK [QRS AXIS <= -45, QR IN I, RS IN II] LEFT VENTRICULAR HYPERTROPHY AND ST-T CHANGE [VOLTAGE CRITERIA PLUS ST/T ABNORMALITY] Compared to ECG 08/24/2023 21:20:13 No significant changes Electronically Signed On 08-25-2023 8:37:32 CDT by Haroldo Hendricks M.D. [id number]
[2023-08-25] MEDS: FUROsemide 10 mg/mL SDV 4mL 40 MG IVP (01:45)
[2023-08-25 01:54] LABS: Troponin 5 6HR 79.71 ng/L (0-10)
[2023-08-25 01:57] LABS: Troponin 5 6HR Delta -6.29 ng/L (0-12)
[2023-08-25 02:03] LABS: Free T4 Free Thyroxine 0.74 ng/dL (0.82-1.77)
[2023-08-25 06:07] LABS: Potassium, Radom Urine 39 mmol/L; Urine Random Chloride 56 mmol/L; Urine Random Sodium 30 mmol/L
[2023-08-25 08:03] LABS: INR 1.82 (0.8-1.2)
--- NOTE | 2023-08-25 08:54 | PC.CHAP ---
Pastoral Care Encounter/Spiritual Assessment Type of Contact [] Declined theater technician visit [] Patient/Family/Request visit [] Outpatient visit [] Follow-up visit [] Physician referral [] Code/Alert [x] Routine visit [] Staff referral [] Actively dying [] Patient sleeping [] Family support [] [] Out of room [] Palliative care [] [] Receiving care in room [] Pre-surgical visit [] Trauma [] Long length of stay [] ICU visit [] Other: Relational/Emotional Strength [x] Patient feels connected with others/family/visitors/staff [] Distress [] Loneliness/isolation [] Abandonment Spirituality of Patient [x] Person of Janis [] Attends Zoroastrianism of their Janis [x] Believes in Prayer [] Reads Bible or Christianity materials [] There are Spiritual issues to be addressed Crystallography Teacher Interventions [x] Prayer [x] Active listening [] Non-anxious presence [x] Spiritual/emotional support [] Crisis/trauma care [] Spiritual counseling [] Bereavement support [] Provided bereavement packet [] Provided Bible/devotional materials [] Provided toy/stuffed animal, coloring book to patient or family member [] Provided Communion [] Anointing/[place] [] Salvation [] Completed spiritual assessment [] Other: Impact on Illness or Injury [] Angry [] Fearful [] Anxious [] Often cries [] Exhaustion [] Unable to work [] Unable to attend protestant [] Unable to walk/stand [] Unable to read [] Unable to drive [] Unable to eat/drink [] Unable to sleep [] Unable to be with family [] Patient intubated [] Other: Summary Time spent with patient 5 min
[2023-08-25] MEDS: aspirin 81 mg EC Tablet PO (09:38)
[2023-08-25] MEDS: levothyroxine 112 mcg Tablet PO (09:39)
[2023-08-25] MEDS: citalopram 20 mg Tablet 40 MG PO (09:39)
[2023-08-25] MEDS: heparin 5,000 unit/mL INJ 1 mL 5000 UNIT SUBCUT (09:39)
[2023-08-25] MEDS: predniSONE 1 mg Tablet 3 MG PO (09:44)
[2023-08-25] MEDS: hydroxychloroquine 200 mg Tablet PO (09:45)
[2023-08-25 12:38] LABS: Basophils % 0.1 %; Hematocrit 34.6 % (36-47); Lymphocytes # 0.6 10^3/uL (0.8-4.8); Lymphocytes % 7.4 %; Mean Corpuscular HGB Conc 29.5 g/dL (30-55); Mean Corpuscular Hemoglobin 22.4 pg (27-33); Mean Platelet Volume 11.8 fL (7.4-10.4); Monocytes # 0.5 10^3/uL (0.2-0.9); Monocytes % 5.8 %; Neutrophils # 7.27 10^3/uL (1.8-7.7); Neutrophils % 86.5 %; Nucleated Red Blood Cells # 0.2 /100WBC; Nucleated Red Blood Cells % 2.4 %; Platelet Count 240 10^3/cmm (157-399); Red Blood Count 4.55 10^6/uL (3.85-5.65); Red Cell Distribution Width 17.2 % (12.1-15.1); White Blood Count 8.41 10^3/uL (3.29-11.43)
--- NOTE | 2023-08-25 12:42 | P.TS_ITS ---
Transfer Summary Providers Date of Admission: 08/24/23 23:28 Date of Discharge/Transfer: 08/25/23 Attending Provider at Admission: Teofilo Valdez MD Attending Provider at Transfer: Juju Tomas MD Primary Care Provider: Emily Vitale MD Transfer Plans: Anticipated date of transfer: 08/25/23 . Receiving Facility: [facility] . Additional transfer facility information: Dr. Trejo cardiology . Diagnoses at Discharge Discharge Diagnosis (1) Aortic stenosis: Status: Acute (2) Acute kidney injury: Status: Acute (3) Transaminitis: Status: Acute (4) Peripheral neuropathy: Status: Acute (5) Systemic lupus erythematosus (SLE) in adult: Status: Acute (6) Hypothyroidism: Status: Acute (7) Osteoporosis: Status: Acute Reason for Visit Reason for Visit SOB Brief History: Sari Bain is a 57 year old female with a past medical history significant for bioprosthetic aortic valve replacement (2019) complicated by the development of severe aortic stenosis, systemic lupus erythematosus, Raynaud's syndrome, osteoporosis, peripheral neuropathy, hypothyroidism, GERD, pulmonary hypertension, and cataracts who presents to the emergency department with shortness of breath and diffuse weakness. Patient reports symptoms have been progressing for several weeks but worse in the last 1 to 2 days. Reports exertion worsens symptoms. Rest improves. Endorses associated nonproductive cough. Denies fevers or chills. Of note, patient recently establish care with cardiology clinic. Most recent transthoracic echocardiogram on May 18, 2023 revealed moderate concentric LVH, LVEF 55%, grade 3/4 diastolic dysfunction, severely elevated filling pressures, severe aortic valve stenosis and evidence of moderate pulmonary hypertension. She reportedly underwent left and right heart cath on 08/23/[address] Manning. Heart cath report is currently pending. Family reports they were told there are no blockages on yesterday's cath. Hospital Course Hospital Course Patient is a female with severe aortic stenosis surface area 0.45 cm?. Who has presented to our hospital with worsening heart failure secondary to severe aortic stenosis. BNP 14,000, hemoglobin 10.2, sodium 125, liver enzymes elevated 373, 462. She will require inpatient TAVR. She had a right heart cath done 3 days prior on 08/22 which showed normal coronary arteries, severe pulmonary hypertension, elevated right and left-sided pressures mean gradient across aortic valve of 67. Final cath report is pending at this time. [employer] Machine Operator from [facility] contacted Dr. Trejo at [facility] who is excepted patient for transfer. Spoke to transfer center head of bed is being set up at this time. I have started patient on gentle diuresis. Lasix 40 IV x 1 was given this morning. Patient's vitals are stable at this time and she will be transferred to [place] in stable but fair condition. She is currently requiring 4 L nasal cannula saturating 97%. Physical Exam Narrative: General: Patient is awake. Appears fatigued however no acute respiratory distress, on 4 L nasal cannula saturating 97%.. Cardiovascular: 2+ pitting edema bilateral lower extremities. Loud 4+ systolic ejection murmur. Lungs: Breath sounds are diminished. Faint crackles. No wheezing. On room air. Skin: No jaundice. No rashes. Abdomen: Normal bowel sounds, abdomen soft and nontender. Musculoskeletal: No swollen or erythematous joints. Neurological: Moves all 4 extremities. No myoclonus. TS Data Studies Completed and Pending Pending at discharge Category Date Time Status CMP [Comprehensive Metabolic Panel] Routine Lab 08/25/23 12:13 Ordered Comprehensive Metabolic Panel Routine Lab 08/25/23 12:30 Received Magnesium Routine Lab 08/25/23 12:30 Received NT Pro B Type Natriuretic Pept Routine Lab 08/25/23 12:30 Received Phosphorus Routine Lab 08/25/23 12:30 Received Completed Studies During Hospitalization Category Date Time Status CT chest wo con [id number] Stat Cat Scan 08/24/23 20:54 Completed XR chest 1V portable [id number] Stat Exams 08/24/23 20:27 Completed US abdomen complete* [id number] Stat Ultrasound 08/24/23 21:55 Completed Laboratory Last Values WBC 8.41 10^3/uL (3.29-11.43) 08/25/23 12:30 Corrected WBC Cancelled 08/25/23 06:00 RBC 4.55 10^6/uL (3.85-5.65) 08/25/23 12:30 Hgb 10.20 g/dL (11.27-16.99) L 08/25/23 12:30 Hct 34.6 % (36-47) L 08/25/23 12:30 MCV 76.0 fl (85-98) L 08/25/23 12:30 MCH 22.4 pg (27-33) L 08/25/23 12:30 MCHC 29.5 g/dL (30-55) L 08/25/23 12:30 RDW 17.2 % (12.1-15.1) H 08/25/23 12:30 Plt Count 240 10^3/cmm (157-399) 08/25/23 12:30 MPV 11.8 fL (7.4-10.4) H 08/25/23 12:30 Gran % Cancelled 08/25/23 06:00 Neut % (Auto) 86.5 % 08/25/23 12:30 Lymph % (Auto) 7.4 % 08/25/23 12:30 Hemphill % (Auto) 5.8 % 08/25/23 12:30 Eos % (Auto) 0.0 % 08/25/23 12:30 Baso % (Auto) 0.1 % 08/25/23 12:30 Neut # (Auto) 7.27 10^3/uL (1.8-7.7) 08/25/23 12:30 Lymph # (Auto) 0.6 10^3/uL (0.8-4.8) L 08/25/23 12:30 Hemphill # (Auto) 0.5 10^3/uL (0.2-0.9) 08/25/23 12:30 Eos # (Auto) 0.0 10^3/uL (0.0-0.8) 08/25/23 12:30 Baso # (Auto) 0.0 10^3/uL (0.0-0.1) 08/25/23 12:30 Absolute Gran (auto) Cancelled 08/25/23 06:00 Nucleated RBC % (auto) 2.4 % 08/25/23 12:30 Nucleated RBCs # 0.2 /100WBC 08/25/23 12:30 PT 21.70 SECONDS (12.1-14.9) H 08/25/23 06:00 INR 1.82 (0.8-1.2) H 08/25/23 06:00 D-Dimer 8.79 ug/mLFEU (0-0.59) H 08/24/23 19:42 Sodium Cancelled 08/25/23 06:00 Potassium Cancelled 08/25/23 06:00 Chloride Cancelled 08/25/23 06:00 Carbon Dioxide Cancelled 08/25/23 06:00 Anion Gap Cancelled 08/25/23 06:00 BUN Cancelled 08/25/23 06:00 Creatinine Cancelled 08/25/23 06:00 GFR Calculation Cancelled 08/25/23 06:00 Glucose Cancelled 08/25/23 06:00 Calculated Osmolality Cancelled 08/25/23 06:00 Calcium Cancelled 08/25/23 06:00 Phosphorus Cancelled 08/25/23 06:00 Magnesium Cancelled 08/25/23 06:00 Total Bilirubin Cancelled 08/25/23 06:00 AST Cancelled 08/25/23 06:00 ALT Cancelled 08/25/23 06:00 Alkaline Phosphatase Cancelled 08/25/23 06:00 Creatine Kinase 216 U/L (26-192) H 08/24/23 19:42 Troponin T Baseline 86 ng/L (0-10) H 08/24/23 19:42 Troponin T Hi Sens 6Hr 79.71 ng/L (0-10) H 08/25/23 01:07 Troponin T Hi Sens 6Hr Delta -6.29 ng/L (0-12) L 08/25/23 01:07 C-Reactive Protein 36.5 mg/L (0.0-4.9) H 08/24/23 19:42 NT-Pro-B Natriuret Pep Cancelled 08/25/23 06:00 Total Protein Cancelled 08/25/23 06:00 Albumin Cancelled 08/25/23 06:00 Globulin Cancelled 08/25/23 06:00 Procalcitonin 0.37 ng/mL (0-0.5) 08/24/23 19:42 TSH 35.55 uIU/mL (0.27-4.20) H 08/24/23 19:42 Free T4 0.74 ng/dL (0.82-1.77) L 08/25/23 01:07 Ur Random Sodium 30 mmol/L 08/25/23 05:18 Ur Random Potassium 39 mmol/L 08/25/23 05:18 Ur Random Chloride 56 mmol/L 08/25/23 05:18 Radiology Impressions Chest X-Ray 08/24/23 20:27 IMPRESSION: 1. Small right-sided pleural effusion. 2. Hazy opacities in the right lung base compatible with atelectasis versus developing infection in the proper clinical setting. Chest CT 08/24/23 20:54 IMPRESSION: 1. Moderate pulmonary edema and small bilateral pleural effusions. 2. Postsurgical changes of the mediastinum compatible with prior CABG, aortic valve replacement and root repair. 3. Wall thickening of the distal esophagus, possibly sequela of chronic esophagitis. Consider follow-up outpatient GI evaluation to exclude an underlying mucosal lesion. 4. Suspected acute kidney injury. Abdomen Ultrasound 08/24/23 21:55 IMPRESSION: 1. Hepatic cirrhosis with small-moderate ascites. 2. Status post cholecystectomy. Recent Clincial Data Last Vital Signs Temp 97.8 F 08/25/23 12:00 Pulse 95 08/25/23 12:00 Resp 15 08/25/23 12:00 BP 99/72 08/25/23 12:00 Pulse Ox 97 08/25/23 12:00 O2 Del Method Nasal Cannula 08/25/23 12:00 Vital Signs Temp Pulse Resp BP Pulse Ox O2 Del Method 08/25/23 12:00 97.8 F 95 15 99/72 97 Nasal Cannula 08/25/23 07:56 97.6 F 95 16 117/84 97 Nasal Cannula 08/25/23 06:00 92 08/25/23 04:00 97.8 F 91 18 111/73 94 Intake & Output/Weight 08/23/23 08/24/23 08/25/23 08/26/23 06:59 06:59 06:59 06:59 Intake Total 0 / 0 240 / 240 Output Total 300 / 300 Balance -300 / -300 240 / 240 Weight 52.753 kg Vitals Last Vital Signs Temp 97.8 F 08/25/23 12:00 Pulse 95 08/25/23 12:00 Resp 15 08/25/23 12:00 BP 99/72 08/25/23 12:00 Pulse Ox 97 08/25/23 12:00 O2 Del Method Nasal Cannula 08/25/23 12:00 TS Medications Medications Acetaminophen (Acetaminophen 325 Mg Tablet) 650 mg PO Q6H PRN PRN Reason: Mild/Mod Pain Or Temp >/= 101 Aspirin (Aspirin 81 Mg Ec Tablet) 81 mg PO DAILY [facility] Last Admin: 08/25/23 09:38 Dose: 81 mg Calcium Carbonate (Calcium Carbonate 500 Mg Chew Tablet) 1,000 mg PO Q4H PRN PRN Reason: DYSPEPSI Citalopram Hydrobromide (Citalopram 20 Mg Tablet) 40 mg PO DAILY [facility] Last Admin: 08/25/23 09:39 Dose: 40 mg Heparin Sodium (Porcine) (Heparin 5,000 Unit/Ml Inj 1 Ml) 5,000 unit SUBCUT Q12H [facility] Last Admin: 08/25/23 09:39 Dose: 5,000 unit Hydroxychloroquine Sulfate (Hydroxychloroquine 200 Mg Tablet) 200 mg PO EVERY OTHER DAY [facility] Last Admin: 08/25/23 09:45 Dose: 200 mg Hydroxychloroquine Sulfate (Hydroxychloroquine 200 Mg Tablet) 400 mg PO EVERY OTHER DAY [facility] Levothyroxine Sodium (Levothyroxine 112 Mcg Tablet) 112 mcg PO DAILY [facility] Last Admin: 08/25/23 09:39 Dose: 112 mcg Ondansetron HCl (Ondansetron 2 Mg/Ml Sdv 2 Ml) 4 mg IVP Q8H PRN PRN Reason: vomiting, or N/V if npo Ondansetron HCl (Ondansetron 4 Mg Tablet) 4 mg PO Q8H PRN PRN Reason: NAUSEA Prednisone (Prednisone 1 Mg Tablet) 3 mg PO EVERY OTHER DAY [facility] Last Admin: 08/25/23 09:44 Dose: 3 mg Discontinued Medications Furosemide (Furosemide 10 Mg/Ml Sdv 4ml) 40 mg IVP ONCE ONE Stop: 08/25/23 00:55 Last Admin: 08/25/23 01:45 Dose: 40 mg Heparin Sodium (Porcine) (Heparin 5,000 Unit/Ml Inj 1 Ml) 5,000 unit SUBCUT Q12H [facility] Last Admin: 08/25/23 01:09 Dose: Not Given Hydroxychloroquine Sulfate (Hydroxychloroquine 200 Mg Tablet) 200 mg PO EVERY OTHER DAY [facility] Allergies cephalexin Allergy (Intermediate, Verified 08/23/23 06:50) ITCHING,HEADACHE codeine Allergy (Intermediate, Verified 08/23/23 06:50) ITCHING Home Medications citalopram 40 mg tablet 40 mg PO DAILY 04/30/19 [History Confirmed 08/25/23] multivitamin 1 tab PO DAILY 04/30/19 [History Confirmed 08/25/23] aspirin 81 mg tablet,delayed release 81 mg PO DAILY #90 tabs 03/16/20 [Rx Confirmed 08/25/23] 1 tab PO DAILY 08/30/20 [History Confirmed 08/25/23] levothyroxine 112 mcg tablet 112 mcg PO DAILY 08/30/20 [History Confirmed 08/25/23] cholecalciferol (vitamin D3) 50 mcg (2,000 unit) capsule 50 mcg PO DAILY #90 caps 06/30/22 [Rx Confirmed 08/25/23] alendronate 70 mg tablet 70 mg PO Q7D #15 tabs 02/22/23 [Rx Confirmed 08/25/23] prednisone 2.5 mg tablet See Rx Instructions .Route .COMPLEX #90 tabs 03/22/23 [Rx Confirmed 08/25/23] hydroxychloroquine 200 mg tablet See Rx Instructions .Route .COMPLEX #135 tabs 05/15/23 [Rx Confirmed 08/25/23] furosemide 40 mg tablet 20 mg (1/2 x 40 mg) PO BID #120 tabs 08/23/23 [Rx Confirmed 08/25/23] potassium chloride 20 mEq tablet,extended release(part/cryst) (Klor-Con M) 20 meq PO DAILY #60 tabs 08/23/23 [Rx Confirmed 08/25/23] gabapentin 300 mg capsule 300 mg PO TID 08/25/23 [History Confirmed 08/25/23] Discharge Plan Discharge Patient Disposition: Xfer Other Condition: Stable Prescriptions: No Action citalopram 40 mg tablet 40 mg PO DAILY multivitamin Tablet 1 tab PO DAILY aspirin 81 mg tablet,delayed release (DR/EC) 81 mg PO DAILY Qty: 90 3RF cholecalciferol (vitamin D3) 50 mcg (2,000 unit) capsule 50 mcg PO DAILY Qty: 90 1RF alendronate 70 mg tablet 70 mg PO Q7D Qty: 15 1RF Rx Instructions: . prednisone 2.5 mg tablet See Rx Instructions .ROUTE .COMPLEX Qty: 90 1RF Dose Instruction: TAKE 1 TABLET BY MOUTH EVERY DAY Rx Instructions: TAKE 1 TABLET BY MOUTH EVERY DAY hydroxychloroquine 200 mg tablet See Rx Instructions .ROUTE .COMPLEX Qty: 135 1RF Dose Instruction: ALTERNATE TAKING ONE TABLET BY MOUTH TODAY AND THEN TWO TABLETS TOMORROW DAILY Rx Instructions: ALTERNATE TAKING ONE TABLET BY MOUTH TODAY AND THEN TWO TABLETS TOMORROW DAILY levothyroxine 112 mcg tablet 112 mcg PO DAILY 1 tab PO DAILY furosemide 40 mg tablet 20 mg PO BID Qty: 120 2RF potassium chloride [Klor-Con M20] 20 mEq tablet,ER particles/crystals 20 meq PO DAILY Qty: 60 1RF gabapentin 300 mg capsule 300 mg PO TID Rx Instructions: take 1 capsule BY MOUTH THREE TIMES DAILY Referrals: Emily Vitale MD [Primary Care Provider] - Transfer Attestations Time Spent in Transfer Care: greater than 30 min Quality Metrics Clinical Quality Measures [ No reported AMI, CVA or VTE this stay] Coding Level of Care Code 25744 Total time (in minutes) for Discharge: 60 Diagnoses Aortic stenosis I35.0 Acute kidney injury N17.9 Transaminitis R74.01 Peripheral neuropathy G62.9 Systemic lupus erythematosus (SLE) in adult M32.9 Hypothyroidism E03.9 Osteoporosis M81.0
[2023-08-25 13:07] LABS: Alanine Aminotransferase 373 U/L (0-33); Albumin Level 3.5 g/dL (3.5-5.2); Alkaline Phosphatase 135 U/L (35-105); Aspartate Amino Transferase 462 U/L (0-32); Blood Urea Nitrogen 34 mg/dL (6-20); Calcium 8.6 mg/dL (8.5-10.5); Carbon Dioxide 20 mmol/L (22-29); Chloride 88 mmol/L (98-107); Creatinine Clr Calc Pharmacy 56.0501; Glomerular Filtration Rate 64.1 mL/min (90-130); Glucose 110 mg/dL (65-115); NT Pro B Type Natriuretic Pept 14860 pg/mL (0-125); Osmolality Calculated 268 mOsm/kg (285-295); Phosphorus 4.3 mg/dL (2.5-4.5); Sodium 125 mmol/L (136-145); Total Bilirubin 3.6 mg/dL (0.15-1.2); Total Protein 7.5 g/dL (6.6-8.7)
--- NOTE | 2023-08-25 13:48 | PC.NURSE ---
Patient transferred from med surg to CSU at 1340.
--- NOTE | 2023-08-25 16:11 | PC.NURSE ---
Patient is being transferred to [facility]. Dr Davila is accepting provider. Room 531 bed 2. Report is called to Viji Goldsmith RN at [phone] at [phone].
--- NOTE | 2023-08-25 17:19 | PC.NURSE ---
Patient left via EMS, [place], [place]. was at bedside.
== END 2023-08-25 17:17 | disposition other institution (70) ==
LOC: ER 23:03 → MEDSURG 23:30 → CSU 08-25 13:44
PROVIDERS: Emergency Medicine; Admitting Provider Internal Medicine; Emergency Provider Emergency Medicine; PCP Internal Medicine; Visit Provider Internal Medicine
DX: I35.0 Nonrheumatic aortic (valve) stenosis (principal); N17.9 Acute kidney failure, unspecified; R74.01 Elevation of levels of liver transaminase levels; G62.9 Polyneuropathy, unspecified; M32.9 Systemic lupus erythematosus, unspecified; E03.9 Hypothyroidism, unspecified; M18.0 Bilateral primary osteoarthritis of first carpometacarpal joints; Z95.2 Presence of prosthetic heart valve; I73.00 Raynaud's syndrome without gangrene; K21.9 Gastro-esophageal reflux disease without esophagitis; I27.20 Pulmonary hypertension, unspecified; M81.0 Age-related osteoporosis without current pathological fracture; Z79.82 Long term (current) use of aspirin
CPT/HCPCS: 36415; 71045; 71250; 76700; 80053; 82436; 82550; 83735; 83880; 84100; 84133; 84145; 84300; 84439; 84443; 84484; 85025; 85378; 85610; 86140; 93005; 96372; 96374; 99285; G0378; J1644; J1940; J7512